=== PATIENT | male | born 1965 | race Two or more races ===

== ENCOUNTER 2017-07-03 12:14 | Inpatient (IN) | payer OTHER ==
[2017-07-03 13:25] VITALS: BMI 30.7
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
[2017-07-03] MEDS ORDERED: P-EPHED 60MG/TRIPROLIDI 2.5MG TABLET PO PRN (14:59)
[2017-07-03] MEDS ORDERED: MENTHOL/PHENOL 1 EACH UD MM PRN (14:59)
[2017-07-03] MEDS ORDERED: guaiFENesin/D-METHORPHAN HB 10 ML UNIT-DOSE CUPS PO PRN (14:59)
[2017-07-03] MEDS ORDERED: MAGNESIUM CITRATE 300 ML BOTTLE PO PRN (14:59)
[2017-07-03] MEDS ORDERED: ACETAMINOPHEN 325 MG TABLET (FP) PO PRN (14:59)
[2017-07-03] MEDS ORDERED: IBUPROFEN 400 MG TABLET (FP) PO PRN (14:59)
[2017-07-03] MEDS ORDERED: NICOTINE POLACRILEX 4 MG GUM BC PRN (14:59)
[2017-07-03] MEDS ORDERED: LOPERAMIDE HCL 2 MG CAPSULE PO PRN (14:59)
[2017-07-03] MEDS ORDERED: MAGNESIUM HYDROX 2400MG/30ML ORAL SUSPENSION 30 ML CUP PO PRN (14:59)
[2017-07-03] MEDS ORDERED: LIDOCAINE VISCOUS 2% ORAL/TOP 20 ML UNIT-DOSE CUP MM PRN (15:09)
[2017-07-03] MEDS ORDERED: diazePAM 5 MG TABLET PO ONE (15:15)
[2017-07-03] MEDS: LISINOPRIL 10 MG TABLET (FP) PO SCH (17:14)
[2017-07-03] MEDS: CEPHALEXIN MONOHYDRATE 500 MG CAPSULE (UD) PO SCH ×2 (17:14→22:25)
[2017-07-03] MEDS: NICOTINE 21 MG/24 HOURS TOPICAL PATCH TD SCH ×2 (17:16→17:54)
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
[2017-07-03] MEDS ORDERED: MELATONIN 5 MG TABLETS PO PRN (22:00)
[2017-07-03] MEDS: diazePAM 5 MG TABLET PO SCH (22:24)
[2017-07-03] MEDS: THIAMINE HCL 100 MG TABLET (FP) PO SCH (22:25)
[2017-07-03] MEDS: QUEtiapine FUMARATE 100 MG TABLET (FP) PO SCH (22:25)
[2017-07-03] MEDS: BACITRACIN 0.9 GM PACKET TP SCH (22:26)
[2017-07-04] MEDS: METHADONE HCL 40 MG DISPERSABLE TABLET PO SCH (06:01)
[2017-07-04] MEDS: diazePAM 5 MG TABLET PO SCH ×3 (06:01→22:21)
[2017-07-04] MEDS: PRENATAL VITAMINS W/ FOLIC ACID TABLET (FP) PO SCH (09:17)
[2017-07-04] MEDS: CEPHALEXIN MONOHYDRATE 500 MG CAPSULE (UD) PO SCH ×4 (09:17→22:21)
[2017-07-04] MEDS: LISINOPRIL 10 MG TABLET (FP) PO SCH (09:17)
[2017-07-04] MEDS: BACITRACIN 0.9 GM PACKET TP SCH ×2 (09:17→22:21)
[2017-07-04] MEDS: NICOTINE 21 MG/24 HOURS TOPICAL PATCH TD SCH (09:18)
[2017-07-04] MEDS: diazePAM 5 MG TABLET PO PRN (09:22)
--- NOTE | 2017-07-04 09:23 | EKG ---
Test Reason : Blood Pressure : / mmHG Vent. Rate : 064 BPM Atrial Rate : 064 BPM P-R Int : 140 ms QRS Dur : 088 ms QT Int : 392 ms P-R-T Axes : 034 001 030 degrees QTc Int : 404 ms NORMAL SINUS RHYTHM NONSPECIFIC T WAVE ABNORMALITY ABNORMAL ECG WHEN COMPARED WITH ECG OF 05-JAN-2017 19:59, NO SIGNIFICANT CHANGE WAS FOUND Confirmed by SURJIT BUSTOS MD ([id number]) on 07/04/2017 9:23:02 AM Referred By: Confirmed By:SURJIT BUSTOS MD
[2017-07-04] MEDS ORDERED: PANTOPRAZOLE 40 MG TABLET (FP) PO SCH (10:00)
[2017-07-04 10:13] LABS: HEMATOCRIT 35.2 % (35.4-49); HEMOGLOBIN 11.7 GM/dL (11.7-16.9); MCH 28.7 pg (25.7-33.7); MCHC 33.2 g/dl (32.0-35.9); MEAN CELL VOLUME 86.3 fl (80-96); MEAN PLT VOLUME 9.9 fl (7.5-11.1); PLATELET COUNT 242 K/MM3 (134-434); RBC 4.08 M/mm3 (4.00-5.60); RDW 15.3 % (11.9-15.9); WHITE BLOOD COUNT 4.5 K/mm3 (4.0-10.0)
[2017-07-04 10:37] LABS: CHLORIDE 107 mmol/L (98-107); POTASSIUM 4.3 mmol/L (3.5-5.1); SODIUM 141 mmol/L (136-145)
[2017-07-04 11:04] LABS: ALBUMIN 3.1 g/dl (3.4-5.0); ALK PHOS 116 U/L (45-117); ANION GAP 9 (8-16); BILIRUBIN,TOTAL 0.5 mg/dL (0.2-1.0); BLOOD UREA NITROGEN 18 mg/dL (7-18); CALCIUM 8.5 mg/dL (8.5-10.1); CO2 25 mmol/L (21-32); GLUCOSE,RANDOM 93 mg/dL (74-106); SGOT/AST 37 U/L (15-37); SGPT/ALT 54 U/L (12-78)
[2017-07-04] MEDS: MAG HYDROX/AL HYDROX/SIMETH 30 ML UNIT-DOSE CUP PO PRN (15:31)
--- NOTE | 2017-07-04 17:39 | PN ---
S CIWA - CIWA Score Nausea/Vomitin Muscle Tremors: 3 Anxiety: 4-Mod. Anxious/Guarded Agitation: 4-Moderately Restless Paroxysmal Sweats: No Perspiration Orientation: 0-Oriented Tacttile Disturbances: 1-Very Mild Itch/Numbness Auditory Disturbances: 0-None Visual Disturbances: 0-None Headache: 3-Moderate CIWA-Ar Total Score: 18 BHS Progress Note (SOAP) Subjective: Stomach Cramping, H/A, Tremors, Anxious. Objective: PATIENT A & O X 3, OBSERVED AMBULATING ON UNIT WITH ASSISTANCE OF A CANE. NO ACUTE DISTRESS. 07/04/17 17:37 Vital Signs Temperature 97.8 F 07/04/17 17:28 Pulse Rate 59 L 07/04/17 17:28 Respiratory Rate 20 07/04/17 17:28 Blood Pressure 132/86 07/04/17 17:28 O2 Sat by Pulse Oximetry (%) Laboratory Tests 07/04/17 07/04/17 07/04/17 08:00 08:00 08:00 WBC 4.5 RBC 4.08 Hgb 11.7 Hct 35.2 L MCV 86.3 MCH 28.7 MCHC 33.2 RDW 15.3 Plt Count 242 D MPV 9.9 Sodium 141 Potassium 4.3 Chloride 107 Carbon Dioxide 25 Anion Gap 9 BUN 18 Creatinine 1.0 Creat Clearance w eGFR > 60 Random Glucose 93 Calcium 8.5 Total Bilirubin 0.5 AST 37 D ALT 54 D Alkaline Phosphatase 116 D Total Protein 7.0 Albumin 3.1 L RPR Titer Nonreactive LABS NOTED. UA RESULTS PENDING. 07/04/17 17:38 Assessment: 07/04/17 17:38 WITHDRAWAL SYMPTOMS. Plan: CONTINUE DETOX. INCREASE DAILY PO FLUID INTAKE.
[2017-07-04] MEDS: THIAMINE HCL 100 MG TABLET (FP) PO SCH (22:21)
[2017-07-04] MEDS: QUEtiapine FUMARATE 100 MG TABLET (FP) PO SCH (22:21)
[2017-07-05] MEDS: METHADONE HCL 40 MG DISPERSABLE TABLET PO SCH (06:06)
[2017-07-05] MEDS: diazePAM 5 MG TABLET PO PRN ×2 (06:06→17:40)
[2017-07-05] MEDS: PANTOPRAZOLE 40 MG TABLET (FP) PO SCH (06:06)
[2017-07-05 10:15] LABS: URINE APPEARANCE CLEAR; URINE BILIRUBIN NEGATIVE (<2.0 mg/dL); URINE COLOR LTYELLOW; URINE GLUCOSE (UA) NEGATIVE (NEGATIVE); URINE KETONE NEGATIVE (NEGATIVE); URINE LEUK ESTERASE NEGATIVE (NEGATIVE); URINE NITRITE NEGATIVE (NEGATIVE); URINE PROTEIN NEGATIVE (NEGATIVE); URINE UROBILINOGEN NEGATIVE mg/dL (0.2-1.0)
[2017-07-05] MEDS: PRENATAL VITAMINS W/ FOLIC ACID TABLET (FP) PO SCH (10:34)
[2017-07-05] MEDS: BACITRACIN 0.9 GM PACKET TP SCH ×2 (10:34→22:25)
[2017-07-05] MEDS: LISINOPRIL 10 MG TABLET (FP) PO SCH (10:34)
[2017-07-05] MEDS: CEPHALEXIN MONOHYDRATE 500 MG CAPSULE (UD) PO SCH ×4 (10:34→22:25)
[2017-07-05] MEDS: diazePAM 5 MG TABLET PO SCH ×2 (10:35→22:25)
[2017-07-05] MEDS: NICOTINE 21 MG/24 HOURS TOPICAL PATCH TD SCH (10:35)
--- NOTE | 2017-07-05 14:45 | PN ---
[facility] CIWA - CIWA Score Nausea/Vomitin-No Nausea/No Vomiting Muscle Tremors: 4-Moderate,w/Arms Extend Anxiety: 4-Mod. Anxious/Guarded Agitation: 4-Moderately Restless Paroxysmal Sweats: 1-Minimal Palms Moist Orientation: 0-Oriented Tacttile Disturbances: 3-Moderate Itch/Numb/Burn Auditory Disturbances: 0-None Visual Disturbances: 0-None Headache: 0-None Present CIWA-Ar Total Score: 16 BHS Progress Note (SOAP) Subjective: ANXIETY,SWEATS,NAUSEA,VOMITING. REQUESTS PSYCH RE-EVAL FOLLOW UP. Objective: 07/05/17 14:44 Vital Signs 07/05/17 07/05/17 10:44 14:05 Temperature 95.4 F L 96.6 F L Pulse Rate 86 74 Respiratory 20 20 Rate Blood Pressure 123/84 127/90 Laboratory Tests 07/04/17 07/04/17 07/04/17 08:00 08:00 08:00 WBC 4.5 RBC 4.08 Hgb 11.7 Hct 35.2 L MCV 86.3 MCH 28.7 MCHC 33.2 RDW 15.3 Plt Count 242 D MPV 9.9 Sodium 141 Potassium 4.3 Chloride 107 Carbon Dioxide 25 Anion Gap 9 BUN 18 Creatinine 1.0 Creat Clearance w eGFR > 60 Random Glucose 93 Calcium 8.5 Total Bilirubin 0.5 AST 37 D ALT 54 D Alkaline Phosphatase 116 D Total Protein 7.0 Albumin 3.1 L Urine Color Urine Appearance Urine pH Ur Specific [place] Urine Protein Urine Glucose (UA) Urine Ketones Urine Blood Urine Nitrite Urine Bilirubin Urine Urobilinogen Ur Leukocyte Esterase RPR Titer Nonreactive 07/05/17 09:14 WBC RBC Hgb Hct MCV MCH MCHC RDW Plt Count MPV Sodium Potassium Chloride Carbon Dioxide Anion Gap BUN Creatinine Creat Clearance w eGFR Random Glucose Calcium Total Bilirubin AST ALT Alkaline Phosphatase Total Protein Albumin Urine Color Ltyellow Urine Appearance Clear Urine pH 5.0 D Ur Specific [place] 1.015 Urine Protein Negative Urine Glucose (UA) Negative Urine Ketones Negative Urine Blood Negative Urine Nitrite Negative Urine Bilirubin Negative Urine Urobilinogen Negative Ur Leukocyte Esterase Negative RPR Titer Assessment: 07/05/17 14:44 WITHDRAWAL SX Plan: CONTINUE DETOX FOLLOW UP WITH PSYCH TODAY
[2017-07-05] MEDS: QUEtiapine FUMARATE 100 MG TABLET (FP) PO SCH (22:25)
[2017-07-05] MEDS: THIAMINE HCL 100 MG TABLET (FP) PO SCH (22:25)
[2017-07-06] MEDS: PANTOPRAZOLE 40 MG TABLET (FP) PO SCH (05:46)
[2017-07-06] MEDS: METHADONE HCL 40 MG DISPERSABLE TABLET PO SCH (05:46)
[2017-07-06] MEDS: diazePAM 5 MG TABLET PO PRN (05:46)
[2017-07-06] MEDS: MAG HYDROX/AL HYDROX/SIMETH 30 ML UNIT-DOSE CUP PO PRN ×2 (08:35→17:33)
--- NOTE | 2017-07-06 09:19 | PN ---
Psychiatric Progress Note Vital Signs: Vital Signs Period Temp Pulse Resp BP Sys/Woods Pulse Ox Last 24 Hr 95.4 F-98.3 F 62-86 18-20 117-131/84-95 Date of Session: 07/06/17 Chief Complaint:: " I would like to get back on zoloft.I feel depressed." HPI: Uneventful detoxification course (opioid,cocaine,alcohol dependence) .Psychiatric re-consult is sought to address the patient's complaint of dysphoria,anxiety and decreased motivation.No suicidal ideation.Mr Castro recalls that zoloft was effective in the past.Expresses the wish to resume treatment with sertraline. ROS: Unremarkable.Patient is cognitively intact.Walks with a cane. Current Medications: Active Medications Generic Name Dose Route Start Last Admin Trade Name Freq PRN Reason Stop Dose Admin Acetaminophen 650 mg 07/03/17 14:59 Tylenol - PO Q4H PRN FEVER Al Hydroxide/Mg Hydroxide 30 ml 07/03/17 14:59 07/06/17 08:35 Mylanta Oral Suspension - PO 30 ml Q6H PRN Administration DYSPEPSIA Bacitracin 0.9 gm 07/03/17 22:00 07/05/17 22:25 Bacitracin - TP 0.9 gm BID LISA Administration Cephalexin HCl 500 mg 07/03/17 18:00 07/05/17 22:25 Keflex - PO 07/10/17 17:59 500 mg QID LISA Administration Diazepam 10 mg 07/03/17 14:59 07/06/17 05:46 Valium - PO 07/06/17 14:58 10 mg Q4H PRN Administration WITHDRAWAL(CONT SUBST) Diazepam 5 mg 07/05/17 10:00 07/05/17 22:25 Valium - PO 07/06/17 22:01 5 mg BID LISA Administration Diazepam 5 mg 07/07/17 10:00 Valium - PO 07/07/17 10:01 DAILY LISA Eucalyptus/Menthol/Phenol/Sorbitol 1 each 07/03/17 14:59 Cepastat Lozenge - MM Q4H PRN SORE THROAT Guaifenesin 10 ml 07/03/17 14:59 07/04/17 00:06 Robitussin Dm - PO 10 ml Q6H PRN Administration COUGH Ibuprofen 400 mg 07/03/17 14:59 Motrin - PO Q6H PRN PAIN LEVEL 4-6 Lidocaine HCl 20 ml 07/03/17 15:09 Xylocaine 2% Viscous Oral - MM TID PRN ORAL PAIN/MOUTH SORES Lisinopril 10 mg 07/03/17 15:45 07/05/17 10:34 Prinivil PO 10 mg DAILY LISA Administration Loperamide HCl 4 mg 07/03/17 14:59 Imodium - PO Q6H PRN DIARRHEA Magnesium Citrate 300 ml 07/03/17 14:59 Citroma - PO Q48H PRN CONSTIPATION Magnesium Hydroxide 30 ml 07/03/17 14:59 Milk Of Magnesia - PO DAILY PRN CONSTIPATION Melatonin 5 mg 07/03/17 22:00 Melatonin PO HS PRN INSOMNIA Methadone HCl 80 mg 07/04/17 06:00 07/06/17 05:46 Dolophine - PO 07/10/17 05:59 80 mg DAILY@0600 LISA Administration Nicotine 21 mg 07/03/17 16:00 07/05/17 10:35 Nicoderm Patch - TD 21 mg DAILY [facility] Administration Nicotine Polacrilex 4 mg 07/03/17 14:59 Nicorette Gum - BC Q2H PRN NICOTINE REPLACEMENT RX Pantoprazole Sodium 40 mg 07/05/17 06:00 07/06/17 05:46 Protonix - PO 40 mg DAILY@0600 [facility] Administration Multivit/Folic Acid/Iron 1 tab 07/04/17 10:00 07/05/17 10:34 Vitamins (Sjr) - PO 1 tab DAILY [facility] Administration Pseudoephedrine/Triprolidine 1 combo 07/03/17 14:59 Actifed - PO TID PRN NASAL CONGESTION Quetiapine Fumarate 100 mg 07/03/17 22:00 07/05/17 22:25 Seroquel - PO 100 mg HS LISA Administration Sertraline HCl 50 mg 07/06/17 10:00 Zoloft - PO DAILY [facility] Thiamine HCl 100 mg 07/03/17 22:00 07/05/17 22:25 Vitamin B1 - PO 100 mg HS LISA Administration Zolpidem Tartrate 10 mg 07/06/17 22:00 Ambien - PO HS PRN INSOMNIA Medication(s) Change(s): Yes.Added to the regimen : zoloft 50 mg po daily + Ambien 10 mg po hs.Side effects/benefits of both drugs are discussed with the patient.Mr Castro is made aware of the risk of sexual dysfunction,suicidal ideation (zoloft) and parasomnias (sleep-walking).Patient agrees with this plan of care. Current Side Effect: No Lab tests ordered: No Lab tests reviewed: Yes Provider note:: Met with the patient.Mr Castro confirms feelings of anhedonia, recurrent moments of sadness during daytime,low energy and dysphoric mood.He remembers that these symptoms were alleviated by the regular utilization of sertraline." I felt much better when I was taking that medication.Unfortunately I stopped taking it after a few weeks." Additional complaint consists of insomnia.Patient agrees to a trial of zolpidem.Mental status remains stable.Patient is willing to complete detox treatment and he contemplates transition to an outpatient substance program.Benign hospital course. Total face to face time:: 35 Mental Status Exam - Mental Status Exam Alert and Oriented to: Time, Place, Person Cognitive Function: Good Patient Appearance: Well Groomed Mood: Withdrawn, Anxious, Hopeful Affect: Mood Congruent, Constricted Patient Behavior: Appropriate, Cooperative Speech Pattern: Clear, Appropriate Voice Loudness: Normal Thought Process: Intact, Goal Oriented Thought Disorder: Not Present Hallucinations: Denies Suicidal Ideation: Denies Homicidal Ideation: Denies Insight/Judgement: Fair Sleep: Poorly, Difficulty falling asleep Appetite: Good Muscle strength/Tone: Normal Gait/Station: Other (walks with a cane) Psychiatric Treatment Plan - Problem List (1) Opioid dependence on agonist therapy Current Visit: Yes (2) Alcohol dependence with uncomplicated withdrawal Current Visit: Yes (3) Cocaine dependence Current Visit: Yes Qualifiers: Substance use status: uncomplicated Qualified Code(s): F14.20 - Cocaine dependence, uncomplicated (4) Sedative, hypnotic or anxiolytic dependence with withdrawal, uncomplicated Current Visit: Yes (5) Nicotine dependence Current Visit: Yes Qualifiers: Nicotine product type: cigarettes Substance use status: in withdrawal Qualified Code(s): F17.213 - Nicotine dependence, cigarettes, with withdrawal (6) Schizoaffective disorder Current Visit: Yes Qualifiers: Schizoaffective disorder type: bipolar Qualified Code(s): F25.0 - Schizoaffective disorder, bipolar type (7) Substance induced mood disorder Current Visit: Yes (8) Insomnia Current Visit: Yes Qualifiers: Insomnia type: unspecified Qualified Code(s): G47.00 - Insomnia, unspecified
[2017-07-06] MEDS: NICOTINE 21 MG/24 HOURS TOPICAL PATCH TD SCH (10:37)
[2017-07-06] MEDS: LISINOPRIL 10 MG TABLET (FP) PO SCH (10:37)
[2017-07-06] MEDS: PRENATAL VITAMINS W/ FOLIC ACID TABLET (FP) PO SCH (10:37)
[2017-07-06] MEDS: diazePAM 5 MG TABLET PO SCH ×2 (10:37→22:15)
[2017-07-06] MEDS: CEPHALEXIN MONOHYDRATE 500 MG CAPSULE (UD) PO SCH ×4 (10:37→22:15)
[2017-07-06] MEDS: SERTRALINE HCL 50 MG TABLET (FP) PO SCH ×2 (11:12→11:54)
[2017-07-06] MEDS: BACITRACIN 0.9 GM PACKET TP SCH ×2 (11:46→22:15)
[2017-07-06] MEDS ORDERED: TRIMETHOBENZAMIDE HCL 200MG/2ML INJ IM ONE (12:55)
--- NOTE | 2017-07-06 13:16 | PN ---
BHS Progress Note (SOAP) Subjective: Sweats shakes sleep disturbance Loss of appetite Requesting to speak with psych Objective: 07/06/17 13:13 A & O x 3 Vital Signs Temperature 96.9 F L 07/06/17 09:42 Pulse Rate 88 07/06/17 09:42 Respiratory Rate 18 07/06/17 09:42 Blood Pressure 127/91 07/06/17 09:42 O2 Sat by Pulse Oximetry (%) Assessment: 07/06/17 13:14 Withdrawal sx Anxiety Plan: Continue detox For psych consult
[2017-07-06] MEDS ORDERED: TRIMETHOBENZAMIDE HCL 300 MG CAPSULE PO ONE (13:45)
--- NOTE | 2017-07-06 15:25 | PN ---
BHS Progress Note Note: Tigan 200mg IM earlier ordered for pt's vomiting
--- NOTE | 2017-07-06 17:33 | PN ---
S Progress Note Note: C/o abd pain w/ burning and vomiting up all food. States protonix is not helping with gastric reflux. States only omperazole 40 mg daily or OTC zantach 300 mg has worked. States has had an endoscopy in the past. Denies blood in vomit or black or tarry stools. Vital Signs - 24 hr 07/05/17 07/05/17 07/06/17 18:29 21:49 00:30 Temperature 97.3 F L 98.3 F Pulse Rate 62 74 Respiratory 18 18 18 Rate Blood Pressure 124/90 131/95 07/06/17 07/06/17 07/06/17 03:30 06:20 06:30 Temperature 98.1 F Pulse Rate 85 Respiratory 18 20 20 Rate Blood Pressure 117/84 07/06/17 07/06/17 09:42 14:33 Temperature 96.9 F L 96.9 F L Pulse Rate 88 65 Respiratory 18 18 Rate Blood Pressure 127/91 115/77 Distended obese abdomen soft and non-tender to palpation. BS (+) and non- hyperactive. Lungs CTA. Nurse will give mylanta PO now. Will stop protonix and prescribe zantac 150 mg PO daily. Patient encouraged to f/u w/ PCP and GI upon discharge.
[2017-07-06] MEDS ORDERED: ZOLPIDEM TARTRATE 10 MG TABLET (PARK CARE ONLY) PO PRN (22:00)
[2017-07-06] MEDS: QUEtiapine FUMARATE 100 MG TABLET (FP) PO SCH (22:15)
[2017-07-06] MEDS: THIAMINE HCL 100 MG TABLET (FP) PO SCH (22:15)
[2017-07-07] MEDS: METHADONE HCL 40 MG DISPERSABLE TABLET PO SCH (05:14)
[2017-07-07 09:29] VITALS: BP 122/88; PULSE 82; TEMP 96.6
[2017-07-07] MEDS ORDERED: diazePAM 5 MG TABLET PO SCH (10:00)
[2017-07-07] MEDS ORDERED: RANITIDINE HCL 150 MG TABLET (FP) PO SCH (10:00)
--- NOTE | 2017-07-07 11:56 | PN ---
BHS Progress Note (SOAP) Subjective: Patient denies current Detox symptoms and reports that he feels well overall. Objective: PATIENT A & O X 3, OBSERVED AMBULATING ON UNIT WITH ASSISTANCE OF A CANE. NO ACUTE DISTRESS. 07/07/17 12:01 Vital Signs Temperature 96.6 F L 07/07/17 09:27 Pulse Rate 82 07/07/17 09:27 Respiratory Rate 18 07/07/17 09:27 Blood Pressure 122/88 07/07/17 09:27 O2 Sat by Pulse Oximetry (%) Laboratory Tests 07/04/17 07/04/17 07/04/17 08:00 08:00 08:00 WBC 4.5 RBC 4.08 Hgb 11.7 Hct 35.2 L MCV 86.3 MCH 28.7 MCHC 33.2 RDW 15.3 Plt Count 242 D MPV 9.9 Sodium 141 Potassium 4.3 Chloride 107 Carbon Dioxide 25 Anion Gap 9 BUN 18 Creatinine 1.0 Creat Clearance w eGFR > 60 Random Glucose 93 Calcium 8.5 Total Bilirubin 0.5 AST 37 D ALT 54 D Alkaline Phosphatase 116 D Total Protein 7.0 Albumin 3.1 L Urine Color Urine Appearance Urine pH Ur Specific [place] Urine Protein Urine Glucose (UA) Urine Ketones Urine Blood Urine Nitrite Urine Bilirubin Urine Urobilinogen Ur Leukocyte Esterase RPR Titer Nonreactive 07/05/17 09:14 WBC RBC Hgb Hct MCV MCH MCHC RDW Plt Count MPV Sodium Potassium Chloride Carbon Dioxide Anion Gap BUN Creatinine Creat Clearance w eGFR Random Glucose Calcium Total Bilirubin AST ALT Alkaline Phosphatase Total Protein Albumin Urine Color Ltyellow Urine Appearance Clear Urine pH 5.0 D Ur Specific [place] 1.015 Urine Protein Negative Urine Glucose (UA) Negative Urine Ketones Negative Urine Blood Negative Urine Nitrite Negative Urine Bilirubin Negative Urine Urobilinogen Negative Ur Leukocyte Esterase Negative RPR Titer LABS NOTED. Assessment: 07/07/17 12:01 COMPLETION OF DETOX REGIMEN. Plan: PATIENT SCHEDULED FOR DISCHARGE FROM DETOX UNIT TODAY.
--- NOTE | 2017-07-07 12:09 | DS ---
[facility] Detox Discharge Summary Admission Date: 07/03/17 Discharge Date: 07/07/17 - History Present History: Alcohol Dependence, Cocaine Dependence, Opioid Dependence, Sedative Dependence, MMTP Additional Comments: PATIENT TO RETURN TO [facility]PAT[facility] ([place] FOR AFTERCARE. PRESCRIPTION FOR REMAINDER OF FULL COURSE OF ANTIBIOTIC (KEFLEX) STARTED ABSCESS OF ARM DURING ADMISSION TO DETOX SENT TO PATIENT'S PHARMACY ( [facility], [place] PATIENT WAS DISCHARGED FROM DETOX UNIT IN STABLE MEDICAL CONDITION. Pertinent Past History: Depression, Abscess of Left arm, MMTP, HTN, Schizoaffective Disorder, GERD, Depression, Bipolar Disorder, History of Positive PPD, Nicotine Dependence. - Physical Exam Results Vital Signs: Vital Signs Temperature 96.6 F L 07/07/17 09:27 Pulse Rate 82 07/07/17 09:27 Respiratory Rate 18 07/07/17 09:27 Blood Pressure 122/88 07/07/17 09:27 O2 Sat by Pulse Oximetry (%) Pertinent Admission Physical Exam Findings: WITHDRAWAL SYMPTOMS. Laboratory Tests 07/04/17 07/04/17 07/04/17 08:00 08:00 08:00 WBC 4.5 RBC 4.08 Hgb 11.7 Hct 35.2 L MCV 86.3 MCH 28.7 MCHC 33.2 RDW 15.3 Plt Count 242 D MPV 9.9 Sodium 141 Potassium 4.3 Chloride 107 Carbon Dioxide 25 Anion Gap 9 BUN 18 Creatinine 1.0 Creat Clearance w eGFR > 60 Random Glucose 93 Calcium 8.5 Total Bilirubin 0.5 AST 37 D ALT 54 D Alkaline Phosphatase 116 D Total Protein 7.0 Albumin 3.1 L Urine Color Urine Appearance Urine pH Ur Specific [place] Urine Protein Urine Glucose (UA) Urine Ketones Urine Blood Urine Nitrite Urine Bilirubin Urine Urobilinogen Ur Leukocyte Esterase RPR Titer Nonreactive 07/05/17 09:14 WBC RBC Hgb Hct MCV MCH MCHC RDW Plt Count MPV Sodium Potassium Chloride Carbon Dioxide Anion Gap BUN Creatinine Creat Clearance w eGFR Random Glucose Calcium Total Bilirubin AST ALT Alkaline Phosphatase Total Protein Albumin Urine Color Ltyellow Urine Appearance Clear Urine pH 5.0 D Ur Specific [place] 1.015 Urine Protein Negative Urine Glucose (UA) Negative Urine Ketones Negative Urine Blood Negative Urine Nitrite Negative Urine Bilirubin Negative Urine Urobilinogen Negative Ur Leukocyte Esterase Negative RPR Titer LABS NOTED. - Treatment Hospital Course: Detox Protocol Followed, Detoxed Safely, Responded well, Discharged Condition Good Patient has Accepted a Rehab Referral to: PT RETURNING TO [facility] ([place]) FOR AFTERCARE. - Medication Discharge Medications: Ambulatory Orders Omeprazole 40 mg PO DAILY 01/05/17 Quetiapine Fumarate [Seroquel] 100 mg PO HS #30 tablet 01/06/17 Cephalexin [Keflex] 500 mg PO TID 5 Days #15 capsule 07/07/17 Lisinopril 10 mg PO DAILY #30 tablet 07/07/17 - Diagnosis (1) Sedative, hypnotic or anxiolytic dependence with withdrawal, uncomplicated Status: Acute (2) Alcohol dependence with uncomplicated withdrawal Status: Acute (3) Cocaine dependence Status: Acute Qualifiers: Substance use status: uncomplicated Qualified Code(s): F14.20 - Cocaine dependence, uncomplicated (4) Nicotine dependence Status: Acute Qualifiers: Nicotine product type: cigarettes Substance use status: in withdrawal Qualified Code(s): F17.213 - Nicotine dependence, cigarettes, with withdrawal (5) Opioid dependence on agonist therapy Status: Acute (6) GERD (gastroesophageal reflux disease) Status: Acute Qualifiers: Esophagitis presence: esophagitis presence not specified Qualified Code(s) : K21.9 - Gastro-esophageal reflux disease without esophagitis (7) Hepatitis C Status: Chronic Qualifiers: Viral hepatitis chronicity: chronic Hepatic coma status: without hepatic coma Qualified Code(s): B18.2 - Chronic viral hepatitis C (8) Hypertension Status: Chronic Qualifiers: Hypertension type: essential hypertension Qualified Code(s): I10 - Essential (primary) hypertension (9) Methadone maintenance therapy patient Status: Chronic (10) Positive PPD Status: Resolved (11) History of schizophrenia Status: Suspected (12) History of bipolar disorder Status: Suspected (13) Abscess of left forearm Status: Acute (14) Insomnia Status: Acute Qualifiers: Insomnia type: unspecified Qualified Code(s): G47.00 - Insomnia, unspecified (15) Substance induced mood disorder Status: Acute (16) Schizoaffective disorder Status: Chronic Qualifiers: Schizoaffective disorder type: bipolar Qualified Code(s): F25.0 - Schizoaffective disorder, bipolar type - AMA Did Patient Leave Against Medical Advice: No
== END 2017-07-07 10:12 | disposition home or self-care (01) | DRG 773 ==
LOC: YASAS 12:14 → Y3N 14:53
PROVIDERS: ADMIT Internal Medicine; ATTEND Internal Medicine
PROC: HZ2ZZZZ Detoxification Services for Substance Abuse Treatment (ICD-10-PCS; principal; 2017-07-03)
DX: F10.230 Alcohol dependence with withdrawal, uncomplicated (principal); F11.20 Opioid dependence, uncomplicated; F13.230 Sedative, hypnotic or anxiolytic dependence with withdrawal, uncomplicated; F14.20 Cocaine dependence, uncomplicated; F17.210 Nicotine dependence, cigarettes, uncomplicated; F19.24 Other psychoactive substance dependence with psychoactive substance-induced mood disorder; F25.0 Schizoaffective disorder, bipolar type; I10 Essential (primary) hypertension; K21.9 Gastro-esophageal reflux disease without esophagitis; B18.2 Chronic viral hepatitis C; R76.11 Nonspecific reaction to tuberculin skin test without active tuberculosis; L02.414 Cutaneous abscess of left upper limb; G47.00 Insomnia, unspecified; R26.2 Difficulty in walking, not elsewhere classified; Z99.89 Dependence on other enabling machines and devices; Z91.5 Personal history of self-harm
CPT/HCPCS: 36415; 80053; 81003; 85027; 86593; 93005; 93010

== ENCOUNTER 2018-03-19 12:00 | Inpatient (IN) | payer OTHER ==
[2018-03-19 12:36] VITALS: BMI 30.1
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
[2018-03-19] MEDS ORDERED: MAG HYDROX/AL HYDROX/SIMETH 30 ML UNIT-DOSE CUP PO PRN (17:02)
[2018-03-19] MEDS ORDERED: IBUPROFEN 400 MG TABLET (FP) PO PRN (17:02)
[2018-03-19] MEDS ORDERED: P-EPHED 60MG/TRIPROLIDI 2.5MG TABLET PO PRN (17:02)
[2018-03-19] MEDS ORDERED: ACETAMINOPHEN 325 MG TABLET (FP) PO PRN (17:02)
[2018-03-19] MEDS ORDERED: guaiFENesin/D-METHORPHAN HB 10 ML UNIT-DOSE CUPS PO PRN (17:02)
[2018-03-19] MEDS ORDERED: MAGNESIUM CITRATE 300 ML BOTTLE PO PRN (17:02)
[2018-03-19] MEDS ORDERED: NICOTINE POLACRILEX 4 MG GUM BC PRN (17:02)
[2018-03-19] MEDS ORDERED: MAGNESIUM HYDROX 2400MG/30ML ORAL SUSPENSION 30 ML CUP PO PRN (17:02)
[2018-03-19] MEDS ORDERED: MENTHOL/PHENOL 1 EACH UD MM PRN (17:02)
[2018-03-19] MEDS ORDERED: chlordiazePOXIDE HCL 25 MG CAPSULE PO ONE (18:00)
[2018-03-19] MEDS: NICOTINE 21 MG/24 HOURS TOPICAL PATCH TD SCH (18:12)
[2018-03-19] MEDS: chlordiazePOXIDE HCL 25 MG CAPSULE PO SCH (23:28)
[2018-03-19] MEDS: THIAMINE HCL 100 MG TABLET (FP) PO SCH (23:28)
[2018-03-20] MEDS: METHADONE HCL 40 MG DISPERSABLE TABLET PO SCH (05:33)
[2018-03-20] MEDS: chlordiazePOXIDE HCL 25 MG CAPSULE PO SCH ×4 (05:34→23:16)
[2018-03-20] MEDS: NICOTINE 21 MG/24 HOURS TOPICAL PATCH TD SCH (10:37)
[2018-03-20] MEDS: PRENATAL VITAMINS W/ FOLIC ACID TABLET (FP) PO SCH (10:37)
[2018-03-20 11:07] LABS: HEMOGLOBIN 11.1 GM/dL (11.7-16.9); MCH 27.3 pg (25.7-33.7); MCHC 32.6 g/dl (32.0-35.9); MEAN CELL VOLUME 83.7 fl (80-96); MEAN PLT VOLUME 9.6 fl (7.5-11.1); PLATELET COUNT 268 K/MM3 (134-434); RBC 4.07 M/mm3 (4.00-5.60); RDW 15.7 % (11.9-15.9); WHITE BLOOD COUNT 4.9 K/mm3 (4.0-10.0)
[2018-03-20 11:09] LABS: URINE APPEARANCE CLEAR; URINE BILIRUBIN NEGATIVE (<2.0 mg/dL); URINE COLOR YELLOW; URINE GLUCOSE (UA) NEGATIVE (NEGATIVE); URINE KETONE NEGATIVE (NEGATIVE); URINE LEUK ESTERASE NEGATIVE (NEGATIVE); URINE NITRITE NEGATIVE (NEGATIVE); URINE PROTEIN NEGATIVE (NEGATIVE); URINE UROBILINOGEN 4.0 E.U/dl mg/dL (0.2-1.0)
[2018-03-20 11:20] LABS: ALBUMIN 3.6 g/dl (3.4-5.0); ALK PHOS 106 U/L (45-117); ANION GAP 7 MMOL/L (8-16); BILIRUBIN,TOTAL 0.4 mg/dL (0.2-1); BLOOD UREA NITROGEN 13 mg/dL (7-18); CALCIUM 8.5 mg/dL (8.5-10.1); CHLORIDE 108 mmol/L (98-107); CO2 26 mmol/L (21-32); CREATININE 1.1 mg/dL (0.55-1.3); GLUCOSE,RANDOM 104 mg/dL (74-106); POTASSIUM 3.6 mmol/L (3.5-5.1); SGOT/AST 28 U/L (15-37); SGPT/ALT 34 U/L (13-61); SODIUM 141 mmol/L (136-145); TOT PROT 7.5 g/dl (6.4-8.2)
--- NOTE | 2018-03-20 13:08 | PN ---
S CIWA - CIWA Score Nausea/Vomitin Muscle Tremors: 2 Anxiety: 2 Agitation: 2 Paroxysmal Sweats: 2 Orientation: 0-Oriented Tacttile Disturbances: 1-Very Mild Itch/Numbness Auditory Disturbances: 1-Very Mild Visual Disturbances: 1-Very Mild Sensitivity Headache: 1-Very Mild CIWA-Ar Total Score: 15 BHS Progress Note (SOAP) Subjective: Epigastric discomfort, anxiety, interrupted sleep Objective: 03/20/18 13:07 Vital Signs 03/20/18 03/20/18 03/20/18 06:00 06:22 09:45 Temperature 97.2 F L 97 F L Pulse Rate 53 L 56 L Respiratory 18 18 19 Rate Blood Pressure 144/91 126/92 Laboratory Last Values WBC 4.9 K/mm3 (4.0-10.0) 03/20/18 05:40 RBC 4.07 M/mm3 (4.00-5.60) 03/20/18 05:40 Hgb 11.1 GM/dL (11.7-16.9) L 03/20/18 05:40 Hct 34.0 % (35.4-49) L 03/20/18 05:40 MCV 83.7 fl (80-96) 03/20/18 05:40 MCH 27.3 pg (25.7-33.7) 03/20/18 05:40 MCHC 32.6 g/dl (32.0-35.9) 03/20/18 05:40 RDW 15.7 % (11.9-15.9) 03/20/18 05:40 Plt Count 268 K/MM3 (134-434) 03/20/18 05:40 MPV 9.6 fl (7.5-11.1) 03/20/18 05:40 Sodium 141 mmol/L (136-145) 03/20/18 05:40 Potassium 3.6 mmol/L (3.5-5.1) 03/20/18 05:40 Chloride 108 mmol/L (98-107) H 03/20/18 05:40 Carbon Dioxide 26 mmol/L (21-32) 03/20/18 05:40 Anion Gap 7 MMOL/L (8-16) L 03/20/18 05:40 BUN 13 mg/dL (7-18) 03/20/18 05:40 Creatinine 1.1 mg/dL (0.55-1.3) 03/20/18 05:40 Creat Clearance w eGFR > 60 (>60) 03/20/18 05:40 Random Glucose 104 mg/dL (74-106) 03/20/18 05:40 Calcium 8.5 mg/dL (8.5-10.1) 03/20/18 05:40 Total Bilirubin 0.4 mg/dL (0.2-1) 03/20/18 05:40 AST 28 U/L (15-37) 03/20/18 05:40 ALT 34 U/L (13-61) 03/20/18 05:40 Alkaline Phosphatase 106 U/L (45-117) 03/20/18 05:40 Total Protein 7.5 g/dl (6.4-8.2) 03/20/18 05:40 Albumin 3.6 g/dl (3.4-5.0) 03/20/18 05:40 Urine Color Yellow 03/20/18 07:50 Urine Appearance Clear 03/20/18 07:50 Urine pH 6.0 (5.0-8.0) 03/20/18 07:50 Ur Specific [place] 1.018 (1.010-1.035) 03/20/18 07:50 Urine Protein Negative (NEGATIVE) 03/20/18 07:50 Urine Glucose (UA) Negative (NEGATIVE) 03/20/18 07:50 Urine Ketones Negative (NEGATIVE) 03/20/18 07:50 Urine Blood Negative (NEGATIVE) 03/20/18 07:50 Urine Nitrite Negative (NEGATIVE) 03/20/18 07:50 Urine Bilirubin Negative (<2.0 mg/dL) 03/20/18 07:50 Urine Urobilinogen 4.0 e.u/dl mg/dL (0.2-1.0) 03/20/18 07:50 Ur Leukocyte Esterase Negative (NEGATIVE) 03/20/18 07:50 RPR Titer Nonreactive (NONREACTIVE) 03/20/18 05:40 Labs noted, no panic values Assessment: 03/20/18 13:07 Withdrawal sx GERD Plan: Continue detox Start pantoprazole 40mg QD
[2018-03-20] MEDS: PANTOPRAZOLE 40 MG TABLET (FP) PO SCH (14:26)
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
[2018-03-20] MEDS: chlordiazePOXIDE HCL 25 MG CAPSULE PO PRN (19:35)
[2018-03-20] MEDS: QUEtiapine FUMARATE 50 MG TABLET PO SCH (23:15)
[2018-03-20] MEDS: THIAMINE HCL 100 MG TABLET (FP) PO SCH (23:15)
[2018-03-21] MEDS: METHADONE HCL 40 MG DISPERSABLE TABLET PO SCH (05:54)
[2018-03-21] MEDS: chlordiazePOXIDE HCL 25 MG CAPSULE PO SCH ×3 (05:54→16:50)
[2018-03-21] MEDS: PRENATAL VITAMINS W/ FOLIC ACID TABLET (FP) PO SCH (10:20)
[2018-03-21] MEDS: LOPERAMIDE HCL 2 MG CAPSULE PO PRN ×2 (10:20→16:50)
[2018-03-21] MEDS: PANTOPRAZOLE 40 MG TABLET (FP) PO SCH (10:20)
[2018-03-21] MEDS: NICOTINE 21 MG/24 HOURS TOPICAL PATCH TD SCH (10:24)
--- NOTE | 2018-03-21 11:00 | EKG ---
Test Reason : Blood Pressure : / mmHG Vent. Rate : 056 BPM Atrial Rate : 056 BPM P-R Int : 138 ms QRS Dur : 086 ms QT Int : 378 ms P-R-T Axes : 030 -07 019 degrees QTc Int : 364 ms SINUS BRADYCARDIA NONSPECIFIC T WAVE ABNORMALITY ABNORMAL ECG WHEN COMPARED WITH ECG OF 03-JUL-2017 17:06, PRECORDIAL LEAD QRS VOLTAGE has diminished Confirmed by KIRSTEN IVY MD ([id number]) on 03/21/2018 10:59:53 AM Referred By: Confirmed By:KIRSTEN IVY MD
[2018-03-21] MEDS ORDERED: cloNIDine HCL 0.1 MG TABLET PO PRN (16:32)
--- NOTE | 2018-03-21 16:34 | PN ---
[facility] CIWA - CIWA Score Nausea/Vomitin-Mild Nausea/No Vomiting Muscle Tremors: 3 Anxiety: 3 Agitation: 3 Paroxysmal Sweats: 3 Orientation: 0-Oriented Tacttile Disturbances: 0-None Auditory Disturbances: 0-None Visual Disturbances: 0-None Headache: 0-None Present CIWA-Ar Total Score: 13 [facility] Progress Note (SOAP) Subjective: Nausea, headache, diarrhea, tremor, sweating Objective: 03/21/18 16:29 Last Vital Signs Temp Pulse Resp BP Pulse Ox 97.3 F L 70 16 149/100 03/21/18 14:29 03/21/18 14:29 03/21/18 14:29 03/21/18 14:29 HTN noted: 149/100 (h/o htn, not on med) Laboratory Tests 03/20/18 03/20/18 03/20/18 05:40 05:40 05:40 WBC 4.9 RBC 4.07 Hgb 11.1 L Hct 34.0 L MCV 83.7 MCH 27.3 MCHC 32.6 RDW 15.7 Plt Count 268 MPV 9.6 Sodium 141 Potassium 3.6 Chloride 108 H Carbon Dioxide 26 Anion Gap 7 L BUN 13 Creatinine 1.1 Creat Clearance w eGFR > 60 Random Glucose 104 Calcium 8.5 Total Bilirubin 0.4 AST 28 ALT 34 Alkaline Phosphatase 106 Total Protein 7.5 Albumin 3.6 Urine Color Urine Appearance Urine pH Ur Specific [place] Urine Protein Urine Glucose (UA) Urine Ketones Urine Blood Urine Nitrite Urine Bilirubin Urine Urobilinogen Ur Leukocyte Esterase RPR Titer Nonreactive 03/20/18 07:50 WBC RBC Hgb Hct MCV MCH MCHC RDW Plt Count MPV Sodium Potassium Chloride Carbon Dioxide Anion Gap BUN Creatinine Creat Clearance w eGFR Random Glucose Calcium Total Bilirubin AST ALT Alkaline Phosphatase Total Protein Albumin Urine Color Yellow Urine Appearance Clear Urine pH 6.0 Ur Specific [place] 1.018 Urine Protein Negative Urine Glucose (UA) Negative Urine Ketones Negative Urine Blood Negative Urine Nitrite Negative Urine Bilirubin Negative Urine Urobilinogen 4.0 e.u/dl Ur Leukocyte Esterase Negative RPR Titer Labs reviewed: mild anemia noted Assessment: 03/21/18 16:31 Withdrawal symptoms Mild anemia and uncontrolled HTN noted Plan: Continue detox Encouraged PO water intake Anemia, mild: most likely due to alcohol dependence HTN, uncontrolled: start clonidine 0.1mg PO q8hr prn if b/p > 140/90. Resume lisinopril 10mg PO daily (patient takes at home). Can increase lisinopril if warranted.
[2018-03-21] MEDS: chlordiazePOXIDE HCL 25 MG CAPSULE PO PRN (21:06)
[2018-03-21] MEDS: chlordiazePOXIDE 5 MG CAPSULE PO SCH (22:33)
[2018-03-21] MEDS: QUEtiapine FUMARATE 50 MG TABLET PO SCH (22:33)
[2018-03-21] MEDS: THIAMINE HCL 100 MG TABLET (FP) PO SCH (22:33)
[2018-03-22] MEDS: LOPERAMIDE HCL 2 MG CAPSULE PO PRN ×2 (00:30→06:18)
[2018-03-22] MEDS: METHADONE HCL 40 MG DISPERSABLE TABLET PO SCH (06:15)
[2018-03-22] MEDS: chlordiazePOXIDE 5 MG CAPSULE PO SCH ×3 (06:15→18:10)
[2018-03-22] MEDS: LISINOPRIL 10 MG TABLET (FP) PO SCH (10:26)
[2018-03-22] MEDS: PRENATAL VITAMINS W/ FOLIC ACID TABLET (FP) PO SCH (10:26)
[2018-03-22] MEDS: PANTOPRAZOLE 40 MG TABLET (FP) PO SCH (10:26)
[2018-03-22] MEDS: NICOTINE 21 MG/24 HOURS TOPICAL PATCH TD SCH (10:26)
--- NOTE | 2018-03-22 12:11 | PN ---
[facility] Progress Note (SOAP) Subjective: Interrupted Sleep, Tremors, Nausea, Stomach Cramping, Diarrhea (patient reports that PRN Immodium has been ineffective for diarrhea). Objective: PATIENT A & O X 3, OBSERVED AMBULATING ON UNIT. IN NO ACUTE DISTRESS. 03/22/18 12:07 Vital Signs Temperature 98.8 F 03/22/18 09:27 Pulse Rate 70 03/22/18 09:27 Respiratory Rate 18 03/22/18 09:27 Blood Pressure 133/94 03/22/18 09:27 O2 Sat by Pulse Oximetry (%) Laboratory Tests 03/20/18 03/20/18 03/20/18 05:40 05:40 05:40 WBC 4.9 RBC 4.07 Hgb 11.1 L Hct 34.0 L MCV 83.7 MCH 27.3 MCHC 32.6 RDW 15.7 Plt Count 268 MPV 9.6 Sodium 141 Potassium 3.6 Chloride 108 H Carbon Dioxide 26 Anion Gap 7 L BUN 13 Creatinine 1.1 Creat Clearance w eGFR > 60 Random Glucose 104 Calcium 8.5 Total Bilirubin 0.4 AST 28 ALT 34 Alkaline Phosphatase 106 Total Protein 7.5 Albumin 3.6 Urine Color Urine Appearance Urine pH Ur Specific [place] Urine Protein Urine Glucose (UA) Urine Ketones Urine Blood Urine Nitrite Urine Bilirubin Urine Urobilinogen Ur Leukocyte Esterase RPR Titer Nonreactive 03/20/18 07:50 WBC RBC Hgb Hct MCV MCH MCHC RDW Plt Count MPV Sodium Potassium Chloride Carbon Dioxide Anion Gap BUN Creatinine Creat Clearance w eGFR Random Glucose Calcium Total Bilirubin AST ALT Alkaline Phosphatase Total Protein Albumin Urine Color Yellow Urine Appearance Clear Urine pH 6.0 Ur Specific [place] 1.018 Urine Protein Negative Urine Glucose (UA) Negative Urine Ketones Negative Urine Blood Negative Urine Nitrite Negative Urine Bilirubin Negative Urine Urobilinogen 4.0 e.u/dl Ur Leukocyte Esterase Negative RPR Titer LABS NOTED. Assessment: 03/22/18 12:08 WITHDRAWAL SYMPTOMS. DIARRHEA. HYPERTENSION. 03/22/18 12:08 Plan: CONTINUE DETOX. INCREASE DAILY PO FLUID INTAKE. PATIENT CURRENTLY RECEIVING DAILY MVI CONTAINING B VITAMINS AND IRON WHILE ADMITTED FOR DETOX. CHANGE FROM IMMODIUM TO LOMOTIL FOR TREATMENT OF DIARRHEA. PATIENT CURRENTLY RECEIVING LISINOPRIL, 10 MG PO DAILY FOR HYPERTENSION. WILL CONTINUE TO MONITOR BLOOD PRESSURE TO DETERMING IF DOSAGE ADJUSTMENT IS REQUIRED.
[2018-03-22] MEDS ORDERED: DIPHENOXYLATE 2.5/ATROPINE.025 1 COMBO TABLET PO ONE (12:20)
[2018-03-22] MEDS: chlordiazePOXIDE HCL 25 MG CAPSULE PO PRN (13:18)
[2018-03-22] MEDS ORDERED: DIPHENOXYLATE 2.5/ATROPINE.025 1 COMBO TABLET PO PRN (19:00)
[2018-03-22] MEDS: QUEtiapine FUMARATE 50 MG TABLET PO SCH (21:16)
[2018-03-22] MEDS: THIAMINE HCL 100 MG TABLET (FP) PO SCH (21:16)
[2018-03-22] MEDS: MELATONIN 5 MG TABLETS PO PRN (21:17)
[2018-03-22] MEDS: chlordiazePOXIDE HCL 10 MG CAPSULE PO SCH (22:16)
[2018-03-23] MEDS: chlordiazePOXIDE HCL 10 MG CAPSULE PO SCH ×3 (06:03→18:01)
[2018-03-23] MEDS: METHADONE HCL 40 MG DISPERSABLE TABLET PO SCH (07:03)
--- NOTE | 2018-03-23 09:08 | PN ---
[facility] Progress Note (SOAP) Subjective: Anxious, Nausea, Abdominal Cramping, Diarrhea. Objective: PATIENT A & O X 3, OBSERVED AMBULATING ON UNIT. 03/23/18 09:04 Vital Signs Temperature 98.1 F 03/23/18 06:17 Pulse Rate 74 03/23/18 06:17 Respiratory Rate 18 03/23/18 06:17 Blood Pressure 118/89 03/23/18 06:17 O2 Sat by Pulse Oximetry (%) Laboratory Tests 03/20/18 03/20/18 03/20/18 05:40 05:40 05:40 WBC 4.9 RBC 4.07 Hgb 11.1 L Hct 34.0 L MCV 83.7 MCH 27.3 MCHC 32.6 RDW 15.7 Plt Count 268 MPV 9.6 Sodium 141 Potassium 3.6 Chloride 108 H Carbon Dioxide 26 Anion Gap 7 L BUN 13 Creatinine 1.1 Creat Clearance w eGFR > 60 Random Glucose 104 Calcium 8.5 Total Bilirubin 0.4 AST 28 ALT 34 Alkaline Phosphatase 106 Total Protein 7.5 Albumin 3.6 Urine Color Urine Appearance Urine pH Ur Specific [place] Urine Protein Urine Glucose (UA) Urine Ketones Urine Blood Urine Nitrite Urine Bilirubin Urine Urobilinogen Ur Leukocyte Esterase RPR Titer Nonreactive 03/20/18 07:50 WBC RBC Hgb Hct MCV MCH MCHC RDW Plt Count MPV Sodium Potassium Chloride Carbon Dioxide Anion Gap BUN Creatinine Creat Clearance w eGFR Random Glucose Calcium Total Bilirubin AST ALT Alkaline Phosphatase Total Protein Albumin Urine Color Yellow Urine Appearance Clear Urine pH 6.0 Ur Specific [place] 1.018 Urine Protein Negative Urine Glucose (UA) Negative Urine Ketones Negative Urine Blood Negative Urine Nitrite Negative Urine Bilirubin Negative Urine Urobilinogen 4.0 e.u/dl Ur Leukocyte Esterase Negative RPR Titer LABS NOTED. Assessment: 03/23/18 09:05 WITHDRAWAL SYMPTOMS. DIARRHEA. ABDOMINAL PAIN. Plan: CONTINUE DETOX. PATIENT ORIGINALLY SCHEDULED FOR DISCHARGE FROM DETOX UNIT TODAY. HOWEVER, DUE TO PERSISTENT DIARRHEA AND ABDOMINAL PAIN THAT IS NOT RESPONDING TO MEDICATION ( IMMODIUM, THEN LOMOTIL), PATIENT TO BE SENT TO [facility] ER. SEE FOLLOWING [facility] PROGRESS NOTE.
--- NOTE | 2018-03-23 09:14 | PN ---
[facility] Progress Note Note: PATIENT WAS ORIGINALLY SCHEDULED FOR DISCHARGE FROM DETOX UNIT TODAY. HOWEVER, DUE TO PERSISTENT DIARRHEA THAT HAS NOT BEEN RESPONSIVE TO BOTH IMMODIUM, THEN LOMOTIL, PATIENT TO BE SENT TO [facility] FOR FURTHER EVALUATION. PATIENT ALSO REPORTS ABDOMINAL PAIN PRIMARILY AFFECTING UPPER RIGHT SIDE ( SLIGHTLY BELOW EPIGASTRIC AREA), FREQUENT, SPASMODIC QUALITY, 10/10 ON PAIN SCALE. PATIENT ALSO REPORTS NAUSEA (NO VOMITING). PATIENT DENIES HISTORY OF ANY SIMILAR OCCURRENCE IN THE PAST. VS STABLE, PATIENT AFEBRILE. REPROT GIVEN TO DR. KOREY SPARKS MD AT [facility]. PATIENT TO BE TAKEN TO [facility] FOR FURTHER EVALUATION/TREATMENT. Judy VERGARA NP
[2018-03-23] MEDS: NICOTINE 21 MG/24 HOURS TOPICAL PATCH TD SCH (10:00)
[2018-03-23] MEDS: PANTOPRAZOLE 40 MG TABLET (FP) PO SCH (10:00)
[2018-03-23] MEDS: LISINOPRIL 10 MG TABLET (FP) PO SCH (10:00)
[2018-03-23] MEDS: PRENATAL VITAMINS W/ FOLIC ACID TABLET (FP) PO SCH (10:00)
[2018-03-23] MEDS ORDERED: LOPERAMIDE HCL 2 MG CAPSULE PO PRN (19:05)
--- NOTE | 2018-03-23 19:15 | PN ---
[facility] Progress Note Note: Patient returned from [facility] ED, after evaluation of c/o diarrhea (w/o blood) and abdominal pain. Abdominal screening and GB ultrasound wnl. Returned w/ no abd pain at this time. Abd soft. Vital Signs 03/23/18 18:08 Temperature 97.9 F Pulse Rate 84 Respiratory 19 Rate Blood Pressure 129/82 Plan: Continue Protonix. D/c Diphenoxylate w/atropine and start Imodium Encourage 2 pitchers water daily. Continue detox. Monitor, as needed.
[2018-03-23] MEDS: QUEtiapine FUMARATE 50 MG TABLET PO SCH (22:21)
[2018-03-23] MEDS: MELATONIN 5 MG TABLETS PO PRN (22:22)
[2018-03-23] MEDS: THIAMINE HCL 100 MG TABLET (FP) PO SCH (22:22)
[2018-03-24] MEDS: METHADONE HCL 40 MG DISPERSABLE TABLET PO SCH (08:18)
--- NOTE | 2018-03-24 08:54 | DS ---
[facility] Detox Discharge Summary Admission Date: 03/19/18 Discharge Date: 03/24/18 - History Present History: Alcohol Dependence, Cocaine Dependence - Physical Exam Results Vital Signs: Vital Signs Temperature 97.5 F L 03/24/18 08:11 Pulse Rate 65 03/24/18 08:11 Respiratory Rate 20 03/24/18 08:11 Blood Pressure 111/71 03/24/18 08:11 O2 Sat by Pulse Oximetry (%) - Treatment Hospital Course: Detox Protocol Followed, Detoxed Safely, Responded well, Discharged Condition Good, Rehab Referral Accepted - Medication Discharge Medications: Ambulatory Orders Omeprazole 40 mg PO DAILY 01/05/17 Quetiapine Fumarate [Seroquel] 100 mg PO HS #30 tablet 01/06/17 Sertraline HCl [Zoloft -] 50 mg PO DAILY #30 tablet 07/08/17 Methadone [Dolophine -] 80 mg PO DAILY 03/19/18 Chlordiazepoxide [Librium -] 10 mg PO ASDIR 03/23/18 Diphenoxylate 2.5/Atropine.025 [Lomotil -] 1 combo PO PRN PRN 03/23/18 Lisinopril 10 mg PO DAILY #30 tablet 03/23/18 Loperamide HCl [Loperamide] 4 mg PO PRN PRN 03/23/18 Melatonin 5 mg PO HS 03/23/18 Nicotine Patch [Nicoderm Patch -] 1 patch TD DAILY 03/23/18 Pantoprazole Sodium [Protonix] 40 mg PO DAILY 03/23/18 Pnv No.95/Ferrous Fum/Folic AC [ Caplet] 1 each PO DAILY 03/23/18 - Diagnosis (1) Alcohol dependence with uncomplicated withdrawal Current Visit: Yes Status: Chronic (2) Anemia Current Visit: Yes Status: Acute (3) Cocaine dependence Current Visit: Yes Status: Chronic Qualifiers: Substance use status: uncomplicated Qualified Code(s): F14.20 - Cocaine dependence, uncomplicated (4) GERD (gastroesophageal reflux disease) Current Visit: Yes Status: Chronic Qualifiers: Esophagitis presence: without esophagitis Qualified Code(s): K21.9 - Gastro -esophageal reflux disease without esophagitis (5) Hepatitis C Current Visit: Yes Status: Chronic Qualifiers: Viral hepatitis chronicity: chronic Hepatic coma status: without hepatic coma Qualified Code(s): B18.2 - Chronic viral hepatitis C (6) Hypertension Current Visit: Yes Status: Chronic Qualifiers: Hypertension type: essential hypertension Qualified Code(s): I10 - Essential (primary) hypertension (7) Nicotine dependence Current Visit: Yes Status: Chronic Qualifiers: Nicotine product type: cigarettes Substance use status: uncomplicated Qualified Code(s): F17.210 - Nicotine dependence, cigarettes, uncomplicated (8) Opioid dependence on agonist therapy Current Visit: Yes Status: Chronic (9) Substance induced mood disorder Current Visit: Yes Status: Chronic (10) Diarrhea Current Visit: Yes Status: Acute Qualifiers: Diarrhea type: unspecified type Qualified Code(s): R19.7 - Diarrhea, unspecified (11) Sedative, hypnotic or anxiolytic dependence with withdrawal, uncomplicated Current Visit: Yes Status: Acute (12) Methadone maintenance therapy patient Current Visit: Yes Status: Chronic (13) Schizoaffective disorder Current Visit: No Status: Chronic Qualifiers: Schizoaffective disorder type: bipolar Qualified Code(s): F25.0 - Schizoaffective disorder, bipolar type (14) Bipolar II disorder Current Visit: No Status: Suspected (15) History of schizophrenia Current Visit: No Status: Suspected (16) Positive PPD Current Visit: No Status: Resolved - AMA Did Patient Leave Against Medical Advice: No (referred to [facility])
[2018-03-24 09:19] VITALS: BP 124/90; PULSE 71; TEMP 98.4
[2018-03-24] MEDS ORDERED: metroNIDAZOLE 250 MG TABLET PO ONE (09:41)
[2018-03-24] MEDS: PANTOPRAZOLE 40 MG TABLET (FP) PO SCH (10:05)
[2018-03-24] MEDS: LISINOPRIL 10 MG TABLET (FP) PO SCH (10:05)
[2018-03-24] MEDS: PRENATAL VITAMINS W/ FOLIC ACID TABLET (FP) PO SCH (10:05)
[2018-03-24] MEDS: NICOTINE 21 MG/24 HOURS TOPICAL PATCH TD SCH (10:06)
[2018-03-24] MEDS ORDERED: metroNIDAZOLE 250 MG TABLET PO SCH (14:00)
== END 2018-03-24 11:05 | disposition home or self-care (01) | DRG 773 ==
LOC: YASAS 12:00 → Y6N 17:19
PROVIDERS: ADMIT Neuromusculoskeletal Medicine & OMM; ATTEND Neuromusculoskeletal Medicine & OMM
PROC: HZ2ZZZZ Detoxification Services for Substance Abuse Treatment (ICD-10-PCS; principal; 2018-03-22)
DX: F10.230 Alcohol dependence with withdrawal, uncomplicated (principal); F10.282 Alcohol dependence with alcohol-induced sleep disorder; F11.20 Opioid dependence, uncomplicated; F14.20 Cocaine dependence, uncomplicated; F13.230 Sedative, hypnotic or anxiolytic dependence with withdrawal, uncomplicated; F17.213 Nicotine dependence, cigarettes, with withdrawal; F19.24 Other psychoactive substance dependence with psychoactive substance-induced mood disorder; F25.0 Schizoaffective disorder, bipolar type; F31.81 Bipolar II disorder; I10 Essential (primary) hypertension; K21.9 Gastro-esophageal reflux disease without esophagitis; B18.2 Chronic viral hepatitis C; R19.7 Diarrhea, unspecified; R76.11 Nonspecific reaction to tuberculin skin test without active tuberculosis; R10.9 Unspecified abdominal pain; Z68.30 Body mass index [BMI] 30.0-30.9, adult; Z91.14 Patient's other noncompliance with medication regimen; Z91.5 Personal history of self-harm
CPT/HCPCS: 36415; 80053; 81003; 85027; 86593; 93005; 93010

== ENCOUNTER 2018-03-23 10:58 | Emergency (ER) | payer OTHER ==
[2018-03-23 11:05] VITALS: TEMP 97.6; BMI 30.9
[2018-03-23] MEDS ORDERED: FAMOTIDINE 20 MG/50 ML IVPB 20 MG/50 ML MG IVPB ONE ×2 (11:51→11:55)
[2018-03-23] MEDS ORDERED: MAG HYDROX/AL HYDROX/SIMETH 30 ML UNIT-DOSE CUP PO ONE (11:51)
[2018-03-23] MEDS ORDERED: MAG HYDROX/AL HYDROX/SIMETH 30 ML UNIT-DOSE CUP ONE (11:54)
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
[2018-03-23 12:13] LABS: BASO % 1.1 % (0-2.0); EOS % 2.2 % (0-4.5); HEMATOCRIT 39.1 % (35.4-49); HEMOGLOBIN 12.9 GM/dL (11.7-16.9); LYMPH % 19.2 % (8-40); MCH 27.4 pg (25.7-33.7); MONO % 12.9 % (3.8-10.2); NEUT % 64.6 % (42.8-82.8); PLATELET COUNT 299 K/MM3 (134-434); RBC 4.71 M/mm3 (4.00-5.60); RDW 16.1 % (11.9-15.9); WHITE BLOOD COUNT 5.6 K/mm3 (4.0-10.0)
[2018-03-23 12:47] LABS: ALBUMIN 3.4 g/dl (3.4-5.0); ALK PHOS 110 U/L (45-117); ANION GAP 6 MMOL/L (8-16); BILIRUBIN,TOTAL 0.5 mg/dL (0.2-1); BLOOD UREA NITROGEN 27 mg/dL (7-18); CHLORIDE 108 mmol/L (98-107); CO2 25 mmol/L (21-32); CREATININE 1.5 mg/dL (0.55-1.3); GLUCOSE,RANDOM 99 mg/dL (74-106); LIPASE 89 U/L (73-393); POTASSIUM 4.1 mmol/L (3.5-5.1); SGOT/AST 36 U/L (15-37); SGPT/ALT 45 U/L (13-61); SODIUM 139 mmol/L (136-145); TOT PROT 7.8 g/dl (6.4-8.2)
--- NOTE | 2018-03-23 13:31 | PDOC ---
Attending Attestation - Resident Resident Name: Alex Gonzalez - ED Attending Attestation I have performed the following: I have examined & evaluated the patient, The case was reviewed & discussed with the resident, I agree w/resident's findings & plan - HPI HPI: 03/23/18 13:26 52 YOM with h/o HTN, hepatitis C, gastritis, alcohol and heroin/IVDU abuse presenting from [facility] with epigastric AP, diarrhea x 3 days. No fever. No n/v. Last used alcohol about 5 days ago. 03/23/18 13:30 - Physicial Exam PE: 03/23/18 13:27 NAD, well appearing, PERRL, EOMI, MMM, nl conjunctiva, anicteric; neck supple. lungs clear, RRR, abdomen soft no RUQ tenderness, +epigastric TTP. no rebound or guarding. no CVAT. AMARO x4, no focal neuro deficits. No peripheral edema. normal color for ethnicity, WWP. no rash. - Medical Decision Making 03/23/18 13:28 hpi as documented VS wnl DDx abdominal pain: opioid/alchol withdrawal. Renal colic, biliary colic, metabolic/electrolyte derangements. GERD, PUD, esophageal spasm, pancreatitis, hepatitis, constipation, colitis, gastroenteritis, cholecystitis,medication side effect, hernia, no lower abdominal pain to suggest appy/diverticulitis. given pepcid, GI cocktail with clinical improvement. abdomen soft and benign, non peritoneal to suggest intra abdominal pathology. biliary ultrasound at bedside with no stones, tenderness; no e/o cholecystitis or cholelithiasis, CBD grossly normal with visualization of the portal triad. labs and lytes normal. lipase normal. doubt pancreatitis or hepatitis diarrhea could be withdrawal from opioid use no alcohol w/d sx here. Pt informed of my clinical impression, treatment recommendations and disposition plan. All questions answered to patient's satisfaction and expressed understanding and comfort with this. Reasons for returning to the ED sooner discussed with the patient otherwise, follow up with primary care physician and continued detox at [facility].. At the time of discharge, the patient is alert, clinically improved, tolerating po and verbalizes understanding of instructions. Patient does not suffer from an acute life- threatening medical condition at this time she is safe for outpatient follow- up. back to [facility] inpatient. call made to with updates. Procedures - Bedside Ultrasound Bedside Ultrasound: Gallbladder Remarks: 03/23/18 13:27 POCUS biliary exam: Indication: abdominal pain Views: gallbladder long and s hort axis, CBD Findings: no stones or GB wall thickening or pericholecystic fluid, normal CBD < 3mm for age. Neg sono murphys Impression: no acute findings. No cholelithiasis or cholecystitis.
[2018-03-23 15:29] VITALS: BP 111/81; PULSE 73
== END 2018-03-23 17:32 | disposition home or self-care (01) ==
LOC: JER 10:58
PROC: 3E033GC Introduction of Other Therapeutic Substance into Peripheral Vein, Percutaneous Approach (ICD-10-PCS; principal; 2018-03-23)
PROC: BF43ZZZ Ultrasonography of Gallbladder and Bile Ducts (ICD-10-PCS; 2018-03-23)
DX: F11.20 Opioid dependence, uncomplicated (principal); F10.20 Alcohol dependence, uncomplicated; I10 Essential (primary) hypertension; K21.9 Gastro-esophageal reflux disease without esophagitis; B18.2 Chronic viral hepatitis C
CPT/HCPCS: 36415; 76705; 80053; 83690; 85025; 96365; 99282-25

== ENCOUNTER 2018-04-20 11:50 | Inpatient (IN) | payer OTHER ==
[2018-04-20 13:18] VITALS: BMI 30.5
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
[2018-04-20] MEDS ORDERED: ACETAMINOPHEN 325 MG TABLET (FP) PO PRN (14:10)
[2018-04-20] MEDS ORDERED: hydrOXYzine PAMOATE 50 MG CAPSULE (FP) PO PRN (14:10)
[2018-04-20] MEDS ORDERED: MAGNESIUM CITRATE 300 ML BOTTLE PO PRN (14:10)
[2018-04-20] MEDS ORDERED: LOPERAMIDE HCL 2 MG CAPSULE PO PRN (14:10)
[2018-04-20] MEDS ORDERED: NICOTINE POLACRILEX 2 MG GUM BUC PRN (14:10)
[2018-04-20] MEDS ORDERED: IBUPROFEN 400 MG TABLET (FP) PO PRN (14:10)
[2018-04-20] MEDS ORDERED: P-EPHED 60MG/TRIPROLIDI 2.5MG TABLET PO PRN (14:10)
[2018-04-20] MEDS ORDERED: MAGNESIUM HYDROX 2400MG/30ML ORAL SUSPENSION 30 ML CUP PO PRN (14:10)
[2018-04-20] MEDS ORDERED: MENTHOL/PHENOL 1 EACH UD MM PRN (14:10)
[2018-04-20] MEDS: RANITIDINE HCL 150 MG TABLET (FP) PO SCH ×2 (16:11→22:31)
[2018-04-20] MEDS: chlordiazePOXIDE HCL 25 MG CAPSULE PO PRN (16:11)
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
[2018-04-20] MEDS ORDERED: MELATONIN 5 MG TABLETS PO PRN (22:00)
[2018-04-20] MEDS: chlordiazePOXIDE HCL 25 MG CAPSULE PO SCH (22:30)
[2018-04-20] MEDS: THIAMINE HCL 100 MG TABLET (FP) PO SCH (22:30)
[2018-04-21] MEDS: chlordiazePOXIDE HCL 25 MG CAPSULE PO SCH ×4 (05:45→22:08)
[2018-04-21 09:59] LABS: HEMATOCRIT 35.2 % (35.4-49); HEMOGLOBIN 11.7 GM/dL (11.7-16.9); MCH 28.3 pg (25.7-33.7); MCHC 33.2 g/dl (32.0-35.9); MEAN CELL VOLUME 85.2 fl (80-96); MEAN PLT VOLUME 10.1 fl (7.5-11.1); PLATELET COUNT 258 K/MM3 (134-434); RBC 4.13 M/mm3 (4.00-5.60); RDW 17.1 % (11.9-15.9); WHITE BLOOD COUNT 5.1 K/mm3 (4.0-10.0)
[2018-04-21] MEDS ORDERED: NICOTINE 14 MG/24 HOURS TOPICAL PATCH TD SCH (10:00)
[2018-04-21 10:16] LABS: ALBUMIN 3.5 g/dl (3.4-5.0); ALK PHOS 112 U/L (45-117); ANION GAP 8 MMOL/L (8-16); BILIRUBIN,TOTAL 0.4 mg/dL (0.2-1); BLOOD UREA NITROGEN 12 mg/dL (7-18); CALCIUM 8.8 mg/dL (8.5-10.1); CHLORIDE 106 mmol/L (98-107); CO2 24 mmol/L (21-32); GLUCOSE,RANDOM 85 mg/dL (74-106); POTASSIUM 4.3 mmol/L (3.5-5.1); SGOT/AST 26 U/L (15-37); SGPT/ALT 29 U/L (13-61); SODIUM 138 mmol/L (136-145); TOT PROT 7.7 g/dl (6.4-8.2)
[2018-04-21] MEDS: PRENATAL VITAMINS W/ FOLIC ACID TABLET (FP) PO SCH (10:17)
[2018-04-21] MEDS: RANITIDINE HCL 150 MG TABLET (FP) PO SCH ×2 (10:18→22:08)
[2018-04-21] MEDS: LISINOPRIL 10 MG TABLET (FP) PO SCH (10:19)
[2018-04-21] MEDS ORDERED: METHADONE HCL 10 MG TABLET PO ONE (10:21)
[2018-04-21] MEDS ORDERED: METHADONE HCL 40 MG DISPERSABLE TABLET ONE (10:55)
[2018-04-21] MEDS ORDERED: METHADONE HCL 10 MG TABLET ONE (10:55)
[2018-04-21] MEDS ORDERED: METHADONE 80 MG, METHADONE 20 MG PO ONE (11:00)
[2018-04-21] MEDS ORDERED: cloNIDine HCL 0.1 MG TABLET PO PRN (11:08)
--- NOTE | 2018-04-21 11:09 | PN ---
[facility] CIWA - CIWA Score Nausea/Vomitin-No Nausea/No Vomiting Muscle Tremors: 3 Anxiety: 1-Mildly Anxious Agitation: 2 Paroxysmal Sweats: 1-Minimal Palms Moist Orientation: 1-Uncertain about Date Tacttile Disturbances: 0-None Auditory Disturbances: 0-None Visual Disturbances: 0-None Headache: 1-Very Mild CIWA-Ar Total Score: 9 BHS Progress Note (SOAP) Subjective: tremor sweating anxiety overly worry about the detox emotion assurance given Objective: 04/21/18 11:26 Vital Signs Temperature 96 F L 04/21/18 09:19 Pulse Rate 54 L 04/21/18 09:19 Respiratory Rate 20 04/21/18 09:19 Blood Pressure 137/86 04/21/18 09:19 O2 Sat by Pulse Oximetry (%) Laboratory Last Values WBC 5.1 K/mm3 (4.0-10.0) 04/21/18 05:45 RBC 4.13 M/mm3 (4.00-5.60) 04/21/18 05:45 Hgb 11.7 GM/dL (11.7-16.9) 04/21/18 05:45 Hct 35.2 % (35.4-49) L 04/21/18 05:45 MCV 85.2 fl (80-96) 04/21/18 05:45 MCH 28.3 pg (25.7-33.7) 04/21/18 05:45 MCHC 33.2 g/dl (32.0-35.9) 04/21/18 05:45 RDW 17.1 % (11.9-15.9) H 04/21/18 05:45 Plt Count 258 K/MM3 (134-434) 04/21/18 05:45 MPV 10.1 fl (7.5-11.1) D 04/21/18 05:45 Sodium 138 mmol/L (136-145) 04/21/18 05:45 Potassium 4.3 mmol/L (3.5-5.1) 04/21/18 05:45 Chloride 106 mmol/L (98-107) 04/21/18 05:45 Carbon Dioxide 24 mmol/L (21-32) 04/21/18 05:45 Anion Gap 8 MMOL/L (8-16) 04/21/18 05:45 BUN 12 mg/dL (7-18) 04/21/18 05:45 Creatinine 1.0 mg/dL (0.55-1.3) 04/21/18 05:45 Creat Clearance w eGFR > 60 (>60) 04/21/18 05:45 Random Glucose 85 mg/dL (74-106) 04/21/18 05:45 Calcium 8.8 mg/dL (8.5-10.1) 04/21/18 05:45 Total Bilirubin 0.4 mg/dL (0.2-1) 04/21/18 05:45 AST 26 U/L (15-37) 04/21/18 05:45 ALT 29 U/L (13-61) 04/21/18 05:45 Alkaline Phosphatase 112 U/L (45-117) 04/21/18 05:45 Total Protein 7.7 g/dl (6.4-8.2) 04/21/18 05:45 Albumin 3.5 g/dl (3.4-5.0) 04/21/18 05:45 lab noted Assessment: 04/21/18 11:27 alcohol withdrawal sx methadone 100 mg po daily Plan: continue detox
[2018-04-21 15:16] LABS: URINE APPEARANCE CLEAR; URINE BILIRUBIN NEGATIVE (<2.0 mg/dL); URINE COLOR YELLOW; URINE GLUCOSE (UA) NEGATIVE (NEGATIVE); URINE KETONE NEGATIVE (NEGATIVE); URINE LEUK ESTERASE NEGATIVE (NEGATIVE); URINE NITRITE NEGATIVE (NEGATIVE); URINE PROTEIN NEGATIVE (NEGATIVE); URINE UROBILINOGEN NEGATIVE mg/dL (0.2-1.0)
[2018-04-21] MEDS: THIAMINE HCL 100 MG TABLET (FP) PO SCH (22:08)
[2018-04-21] MEDS: QUEtiapine FUMARATE 100 MG TABLET (FP) PO SCH (22:08)
[2018-04-21] MEDS: NICOTINE 21 MG/24 HOURS TOPICAL PATCH TD SCH (22:11)
[2018-04-22] MEDS ORDERED: METHADONE HCL 10 MG TABLET ONE (04:52)
[2018-04-22] MEDS ORDERED: METHADONE HCL 40 MG DISPERSABLE TABLET ONE (04:53)
[2018-04-22] MEDS: METHADONE 80 MG, METHADONE 20 MG PO SCH (05:31)
[2018-04-22] MEDS: chlordiazePOXIDE HCL 25 MG CAPSULE PO SCH ×3 (05:31→17:14)
[2018-04-22] MEDS ORDERED: METHADONE HCL 10 MG TABLET PO SCH (06:00)
[2018-04-22] MEDS: MAG HYDROX/AL HYDROX/SIMETH 30 ML UNIT-DOSE CUP PO PRN (07:40)
[2018-04-22] MEDS: RANITIDINE HCL 150 MG TABLET (FP) PO SCH ×2 (10:06→21:58)
[2018-04-22] MEDS: PRENATAL VITAMINS W/ FOLIC ACID TABLET (FP) PO SCH (10:06)
[2018-04-22] MEDS: SERTRALINE HCL 50 MG TABLET (FP) PO SCH (10:06)
[2018-04-22] MEDS: LISINOPRIL 10 MG TABLET (FP) PO SCH (10:06)
[2018-04-22] MEDS: NICOTINE 21 MG/24 HOURS TOPICAL PATCH TD SCH (10:08)
--- NOTE | 2018-04-22 10:57 | PN ---
[facility] CIWA - CIWA Score Nausea/Vomitin-No Nausea/No Vomiting Muscle Tremors: 2 Anxiety: 2 Agitation: 2 Paroxysmal Sweats: 1-Minimal Palms Moist Orientation: 1-Uncertain about Date Tacttile Disturbances: 0-None Auditory Disturbances: 0-None Visual Disturbances: 0-None Headache: 1-Very Mild CIWA-Ar Total Score: 9 S Progress Note (SOAP) Subjective: tremor sweating feeling better today able to social with peers in hallway and in day room Objective: 04/22/18 10:57 Vital Signs Temperature 97.2 F L 04/22/18 09:23 Pulse Rate 76 04/22/18 09:23 Respiratory Rate 18 04/22/18 09:23 Blood Pressure 106/87 04/22/18 09:23 O2 Sat by Pulse Oximetry (%) Laboratory Last Values WBC 5.1 K/mm3 (4.0-10.0) 04/21/18 05:45 RBC 4.13 M/mm3 (4.00-5.60) 04/21/18 05:45 Hgb 11.7 GM/dL (11.7-16.9) 04/21/18 05:45 Hct 35.2 % (35.4-49) L 04/21/18 05:45 MCV 85.2 fl (80-96) 04/21/18 05:45 MCH 28.3 pg (25.7-33.7) 04/21/18 05:45 MCHC 33.2 g/dl (32.0-35.9) 04/21/18 05:45 RDW 17.1 % (11.9-15.9) H 04/21/18 05:45 Plt Count 258 K/MM3 (134-434) 04/21/18 05:45 MPV 10.1 fl (7.5-11.1) D 04/21/18 05:45 Sodium 138 mmol/L (136-145) 04/21/18 05:45 Potassium 4.3 mmol/L (3.5-5.1) 04/21/18 05:45 Chloride 106 mmol/L (98-107) 04/21/18 05:45 Carbon Dioxide 24 mmol/L (21-32) 04/21/18 05:45 Anion Gap 8 MMOL/L (8-16) 04/21/18 05:45 BUN 12 mg/dL (7-18) 04/21/18 05:45 Creatinine 1.0 mg/dL (0.55-1.3) 04/21/18 05:45 Creat Clearance w eGFR > 60 (>60) 04/21/18 05:45 Random Glucose 85 mg/dL (74-106) 04/21/18 05:45 Calcium 8.8 mg/dL (8.5-10.1) 04/21/18 05:45 Total Bilirubin 0.4 mg/dL (0.2-1) 04/21/18 05:45 AST 26 U/L (15-37) 04/21/18 05:45 ALT 29 U/L (13-61) 04/21/18 05:45 Alkaline Phosphatase 112 U/L (45-117) 04/21/18 05:45 Total Protein 7.7 g/dl (6.4-8.2) 04/21/18 05:45 Albumin 3.5 g/dl (3.4-5.0) 04/21/18 05:45 Urine Color Yellow 04/20/18 11:00 Urine Appearance Clear 04/20/18 11:00 Urine pH 5.0 (5.0-8.0) 04/20/18 11:00 Ur Specific [place] 1.015 (1.010-1.035) 04/20/18 11:00 Urine Protein Negative (NEGATIVE) 04/20/18 11:00 Urine Glucose (UA) Negative (NEGATIVE) 04/20/18 11:00 Urine Ketones Negative (NEGATIVE) 04/20/18 11:00 Urine Blood Negative (NEGATIVE) 04/20/18 11:00 Urine Nitrite Negative (NEGATIVE) 04/20/18 11:00 Urine Bilirubin Negative (<2.0 mg/dL) 04/20/18 11:00 Urine Urobilinogen Negative mg/dL (0.2-1.0) 04/20/18 11:00 Ur Leukocyte Esterase Negative (NEGATIVE) 04/20/18 11:00 RPR Titer Nonreactive (NONREACTIVE) 04/21/18 05:45 lab noted Assessment: 04/22/18 10:57 alcohol withdrawal sx Plan: continue detox
[2018-04-22] MEDS: guaiFENesin/D-METHORPHAN HB 10 ML UNIT-DOSE CUPS PO PRN ×2 (10:58→18:19)
[2018-04-22] MEDS: chlordiazePOXIDE HCL 25 MG CAPSULE PO PRN (15:29)
[2018-04-22] MEDS: QUEtiapine FUMARATE 100 MG TABLET (FP) PO SCH (21:58)
[2018-04-22] MEDS: THIAMINE HCL 100 MG TABLET (FP) PO SCH (21:58)
[2018-04-22] MEDS: chlordiazePOXIDE 5 MG CAPSULE PO SCH (21:59)
[2018-04-23] MEDS ORDERED: METHADONE HCL 10 MG TABLET ONE (03:53)
[2018-04-23] MEDS ORDERED: METHADONE HCL 40 MG DISPERSABLE TABLET ONE (03:54)
[2018-04-23] MEDS: chlordiazePOXIDE 5 MG CAPSULE PO SCH ×2 (06:01→10:05)
[2018-04-23] MEDS: METHADONE 80 MG, METHADONE 20 MG PO SCH (06:01)
[2018-04-23 09:51] VITALS: BP 113/74; PULSE 60; TEMP 98
[2018-04-23] MEDS: NICOTINE 21 MG/24 HOURS TOPICAL PATCH TD SCH (10:04)
[2018-04-23] MEDS: MAG HYDROX/AL HYDROX/SIMETH 30 ML UNIT-DOSE CUP PO PRN (10:05)
[2018-04-23] MEDS: RANITIDINE HCL 150 MG TABLET (FP) PO SCH (10:05)
[2018-04-23] MEDS: SERTRALINE HCL 50 MG TABLET (FP) PO SCH (10:05)
[2018-04-23] MEDS: LISINOPRIL 10 MG TABLET (FP) PO SCH (10:06)
[2018-04-23] MEDS: PRENATAL VITAMINS W/ FOLIC ACID TABLET (FP) PO SCH (10:06)
--- NOTE | 2018-04-23 19:25 | DS ---
[facility] Detox Discharge Summary Admission Date: 04/20/18 Discharge Date: 04/23/18 - History Present History: Alcohol Dependence, Cocaine Dependence, Opioid Dependence, Sedative Dependence, MMTP Additional Comments: PATIENT GOING TO [facility] ([place], [place]) FOR AFTERCARE. PRESCRIPTION FOR LISINOPRIL SENT TO [facility] ([place], [place]) FOR AFTERCARE FOR PATIENT. PATIENT WAS DISCHARGED FROM DETOX UNIT NI STABLE MEDICAL CONDITION. Pertinent Past History: History of Positive PPD, Hep C, History of Depression, History of Bipolar Disorder, History Of Anemia, [place], M.M.T.P., Nicotine Dependence, Schiozaffective Disorder, Insomnia, M.M.T.P. - Physical Exam Results Vital Signs: Vital Signs Temperature 98.0 F 04/23/18 09:23 Pulse Rate 60 04/23/18 09:23 Respiratory Rate 18 04/23/18 09:23 Blood Pressure 113/74 04/23/18 09:23 O2 Sat by Pulse Oximetry (%) Pertinent Admission Physical Exam Findings: WITHDRAWAL SYMPTOMS. Laboratory Tests 04/20/18 04/21/18 04/21/18 11:00 05:45 05:45 WBC 5.1 RBC 4.13 Hgb 11.7 Hct 35.2 L MCV 85.2 MCH 28.3 MCHC 33.2 RDW 17.1 H Plt Count 258 MPV 10.1 D Sodium 138 Potassium 4.3 Chloride 106 Carbon Dioxide 24 Anion Gap 8 BUN 12 Creatinine 1.0 Creat Clearance w eGFR > 60 Random Glucose 85 Calcium 8.8 Total Bilirubin 0.4 AST 26 ALT 29 Alkaline Phosphatase 112 Total Protein 7.7 Albumin 3.5 Urine Color Yellow Urine Appearance Clear Urine pH 5.0 Ur Specific [place] 1.015 Urine Protein Negative Urine Glucose (UA) Negative Urine Ketones Negative Urine Blood Negative Urine Nitrite Negative Urine Bilirubin Negative Urine Urobilinogen Negative Ur Leukocyte Esterase Negative RPR Titer 04/21/18 05:45 WBC RBC Hgb Hct MCV MCH MCHC RDW Plt Count MPV Sodium Potassium Chloride Carbon Dioxide Anion Gap BUN Creatinine Creat Clearance w eGFR Random Glucose Calcium Total Bilirubin AST ALT Alkaline Phosphatase Total Protein Albumin Urine Color Urine Appearance Urine pH Ur Specific [place] Urine Protein Urine Glucose (UA) Urine Ketones Urine Blood Urine Nitrite Urine Bilirubin Urine Urobilinogen Ur Leukocyte Esterase RPR Titer Nonreactive LABS NOTED. - Treatment Hospital Course: Detox Protocol Followed, Detoxed Safely, Responded well, Discharged Condition Good, Rehab Referral Accepted Patient has Accepted a Rehab Referral to: [facility] ([place], [place]). - Medication Discharge Medications: Ambulatory Orders Sertraline HCl [Zoloft -] 50 mg PO DAILY #30 tablet 07/08/17 Methadone [Dolophine -] 100 mg PO DAILY 03/19/18 Pantoprazole Sodium [Protonix] 40 mg PO DAILY 03/23/18 Quetiapine Fumarate [Seroquel] 200 mg PO HS 04/20/18 Lisinopril 10 mg PO DAILY #30 tablet 04/23/18 - Diagnosis (1) Alcohol dependence with uncomplicated withdrawal Status: Acute (2) Anemia Status: Acute Qualifiers: Anemia type: unspecified type Qualified Code(s): D64.9 - Anemia, unspecified (3) Psychiatric disorder Status: Chronic (4) Sedative, hypnotic or anxiolytic dependence with withdrawal, uncomplicated Status: Acute (5) Cocaine dependence Status: Chronic Qualifiers: Substance use status: uncomplicated Qualified Code(s): F14.20 - Cocaine dependence, uncomplicated (6) GERD (gastroesophageal reflux disease) Status: Chronic Qualifiers: Esophagitis presence: without esophagitis Qualified Code(s): K21.9 - Gastro -esophageal reflux disease without esophagitis (7) Hepatitis C Status: Chronic Qualifiers: Viral hepatitis chronicity: chronic Hepatic coma status: without hepatic coma Qualified Code(s): B18.2 - Chronic viral hepatitis C (8) Hypertension Status: Chronic Qualifiers: Hypertension type: essential hypertension Qualified Code(s): I10 - Essential (primary) hypertension (9) Insomnia Status: Chronic Qualifiers: Insomnia type: unspecified Qualified Code(s): G47.00 - Insomnia, unspecified (10) Nicotine dependence Status: Chronic Qualifiers: Nicotine product type: cigarettes Substance use status: uncomplicated Qualified Code(s): F17.210 - Nicotine dependence, cigarettes, uncomplicated (11) Non-compliant patient Status: Chronic (12) Opioid dependence on agonist therapy Status: Chronic (13) Schizoaffective disorder Status: Chronic Qualifiers: Schizoaffective disorder type: bipolar Qualified Code(s): F25.0 - Schizoaffective disorder, bipolar type (14) Positive PPD Status: Resolved - AMA Did Patient Leave Against Medical Advice: No
[2018-04-23] MEDS ORDERED: chlordiazePOXIDE HCL 10 MG CAPSULE PO SCH (23:00)
== END 2018-04-23 12:05 | disposition home or self-care (01) | DRG 773 ==
LOC: YASAS 11:50 → Y3N 15:14
PROVIDERS: ADMIT Surgery; ATTEND Surgery
PROC: HZ2ZZZZ Detoxification Services for Substance Abuse Treatment (ICD-10-PCS; principal; 2018-04-20)
DX: F10.230 Alcohol dependence with withdrawal, uncomplicated (principal); F13.230 Sedative, hypnotic or anxiolytic dependence with withdrawal, uncomplicated; F14.20 Cocaine dependence, uncomplicated; F11.20 Opioid dependence, uncomplicated; F17.210 Nicotine dependence, cigarettes, uncomplicated; F25.9 Schizoaffective disorder, unspecified; I10 Essential (primary) hypertension; K21.9 Gastro-esophageal reflux disease without esophagitis; B18.2 Chronic viral hepatitis C; G47.00 Insomnia, unspecified; Z91.5 Personal history of self-harm; Z91.19 Patient's noncompliance with other medical treatment and regimen
CPT/HCPCS: 36415; 80053; 81003; 85027; 86593

== ENCOUNTER 2019-03-03 10:17 | Inpatient (IN) | payer OTHER ==
[2019-03-03 12:10] VITALS: BMI 30.7
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
[2019-03-03] MEDS ORDERED: MAG HYDROX/AL HYDROX/SIMETH 30 ML UNIT-DOSE CUP PO PRN (15:45)
[2019-03-03] MEDS ORDERED: METHOCARBAMOL 500 MG TABLET PO PRN (15:45)
[2019-03-03] MEDS ORDERED: hydrOXYzine PAMOATE 25 MG CAPSULE (FP) PO PRN (15:45)
[2019-03-03] MEDS ORDERED: BISMUTH SUBSALICYLATE 524 MG/30 ML UD PO PRN (15:45)
[2019-03-03] MEDS ORDERED: chlordiazePOXIDE HCL 25 MG CAPSULE PO PRN (15:45)
[2019-03-03] MEDS ORDERED: NICOTINE POLACRILEX 2 MG GUM BUC PRN (15:45)
[2019-03-03] MEDS ORDERED: MAGNESIUM HYDROX 2400MG/30ML ORAL SUSPENSION 30 ML CUP PO PRN (15:45)
[2019-03-03] MEDS ORDERED: ACETAMINOPHEN 325 MG TABLET (FP) PO PRN (15:45)
[2019-03-03] MEDS ORDERED: MAGNESIUM CITRATE 300 ML BOTTLE PO PRN (15:45)
[2019-03-03] MEDS: chlordiazePOXIDE HCL 25 MG CAPSULE PO SCH ×2 (17:41→22:37)
[2019-03-03] MEDS ORDERED: MELATONIN 5 MG TABLETS PO PRN (22:00)
[2019-03-03] MEDS: THIAMINE HCL 100 MG TABLET (FP) PO SCH (22:38)
[2019-03-04] MEDS: chlordiazePOXIDE HCL 25 MG CAPSULE PO SCH ×4 (05:01→22:35)
[2019-03-04] MEDS ORDERED: METHADONE HCL 40 MG DISPERSABLE TABLET ONE (09:06)
[2019-03-04] MEDS ORDERED: METHADONE HCL 10 MG TABLET ONE (09:06)
[2019-03-04] MEDS ORDERED: METHADONE HCL 10 MG TABLET PO SCH (10:00)
[2019-03-04] MEDS ORDERED: METHADONE 120 MG, METHADONE 10 MG PO SCH (10:00)
[2019-03-04] MEDS: LISINOPRIL 10 MG TABLET (FP) PO SCH (10:06)
[2019-03-04] MEDS: PANTOPRAZOLE 40 MG TABLET (FP) PO SCH (10:06)
[2019-03-04] MEDS: PRENATAL VITAMINS W/ FOLIC ACID TABLET (FP) PO SCH (10:06)
[2019-03-04] MEDS: NICOTINE 14 MG/24 HOURS TOPICAL PATCH TD SCH (10:08)
[2019-03-04] MEDS ORDERED: hydrOXYzine PAMOATE 25 MG CAPSULE (FP) PO PRN (10:22)
--- NOTE | 2019-03-04 10:25 | PN ---
S CIWA - CIWA Score Nausea/Vomitin Muscle Tremors: 4-Moderate,w/Arms Extend Anxiety: 4-Mod. Anxious/Guarded Agitation: 4-Moderately Restless Paroxysmal Sweats: 1-Minimal Palms Moist Orientation: 0-Oriented Tacttile Disturbances: 0-None Auditory Disturbances: 0-None Visual Disturbances: 0-None Headache: 1-Very Mild CIWA-Ar Total Score: 16 B[facility] Progress Note (SOAP) Subjective: pt states he feels like he is in withdrawal. Admitted yesterday for alcohol detox O: Vital Signs - 24 hr 03/03/19 03/03/19 03/03/19 12:07 18:03 22:51 Temperature 97.0 F L 97.8 F 98.5 F Pulse Rate 65 63 60 Respiratory 20 20 20 Rate Blood Pressure 148/82 144/85 141/86 03/04/19 03/04/19 03/04/19 00:30 03:30 06:05 Temperature 97 F L Pulse Rate 56 L Respiratory 18 18 18 Rate Blood Pressure 150/94 03/04/19 09:00 Temperature 96 F L Pulse Rate 65 Respiratory 20 Rate Blood Pressure 119/70 labs pending a/p: AUD- continue detox protocol. d/w pt that he has prn librium, clonidine and vistaril for symptom treatment Continue OUD treatment with methadone
[2019-03-04 10:43] LABS: HEMATOCRIT 37.3 % (35.4-49); HEMOGLOBIN 11.9 GM/dL (11.7-16.9); MCH 28.2 pg (25.7-33.7); MCHC 31.9 g/dl (32.0-35.9); MEAN CELL VOLUME 88.6 fl (80-96); MEAN PLT VOLUME 9.8 fl (7.5-11.1); PLATELET COUNT 227 K/MM3 (134-434); RBC 4.21 M/mm3 (4.00-5.60); RDW 15.1 % (11.9-15.9)
[2019-03-04 11:00] LABS: BILIRUBIN,TOTAL 0.3 mg/dL (0.2-1); BLOOD UREA NITROGEN 14.8 mg/dL (7-18); CREATININE 1.1 mg/dL (0.55-1.3); POTASSIUM 3.7 mmol/L (3.5-5.1); TOT PROT 6.8 g/dl (6.4-8.2)
--- NOTE | 2019-03-04 11:36 | EKG ---
Test Reason : Blood Pressure : / mmHG Vent. Rate : 056 BPM Atrial Rate : 056 BPM P-R Int : 142 ms QRS Dur : 086 ms QT Int : 430 ms P-R-T Axes : 043 021 045 degrees QTc Int : 414 ms SINUS BRADYCARDIA NONSPECIFIC ST AND T WAVE ABNORMALITY ABNORMAL ECG WHEN COMPARED WITH ECG OF 03-MAR-2019 16:50, NO SIGNIFICANT CHANGE WAS FOUND Confirmed by KIRSTEN IVY MD ([id number]) on 03/04/2019 11:36:28 AM Referred By: GUCCI GAUTHIER Confirmed By:KIRSTEN IVY MD
--- NOTE | 2019-03-04 11:40 | EKG ---
Test Reason : Blood Pressure : / mmHG Vent. Rate : 056 BPM Atrial Rate : 056 BPM P-R Int : 148 ms QRS Dur : 088 ms QT Int : 446 ms P-R-T Axes : 044 005 059 degrees QTc Int : 430 ms SINUS BRADYCARDIA ABNORMAL ECG Confirmed by KIRSTEN IVY MD ([id number]) on 03/04/2019 11:40:13 AM Referred By: Confirmed By:KIRSTEN IVY MD
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
[2019-03-04] MEDS: cloNIDine HCL 0.1 MG TABLET PO PRN (15:17)
[2019-03-04] MEDS ORDERED: QUEtiapine FUMARATE 200 MG TABLET PO SCH (22:00)
[2019-03-04] MEDS: QUEtiapine FUMARATE 100 MG TABLET (FP) PO SCH (22:35)
[2019-03-04] MEDS: THIAMINE HCL 100 MG TABLET (FP) PO SCH (22:35)
[2019-03-05] MEDS ORDERED: METHADONE HCL 10 MG TABLET ONE (04:03)
[2019-03-05] MEDS ORDERED: METHADONE HCL 40 MG DISPERSABLE TABLET ONE (04:03)
[2019-03-05] MEDS: METHADONE 120 MG, METHADONE 10 MG PO SCH (05:17)
[2019-03-05] MEDS: chlordiazePOXIDE HCL 25 MG CAPSULE PO SCH ×4 (05:17→22:06)
[2019-03-05] MEDS: PRENATAL VITAMINS W/ FOLIC ACID TABLET (FP) PO SCH (10:38)
[2019-03-05] MEDS: PANTOPRAZOLE 40 MG TABLET (FP) PO SCH (10:38)
[2019-03-05] MEDS: LISINOPRIL 10 MG TABLET (FP) PO SCH (10:38)
[2019-03-05] MEDS: SERTRALINE HCL 50 MG TABLET (FP) PO SCH (10:38)
[2019-03-05] MEDS: NICOTINE 14 MG/24 HOURS TOPICAL PATCH TD SCH (10:39)
--- NOTE | 2019-03-05 11:01 | PN ---
S CIWA - CIWA Score Nausea/Vomitin-No Nausea/No Vomiting Muscle Tremors: 2 Anxiety: 3 Agitation: 2 Paroxysmal Sweats: 3 Orientation: 0-Oriented Tacttile Disturbances: 0-None Auditory Disturbances: 0-None Visual Disturbances: 0-None Headache: 2-Mild CIWA-Ar Total Score: 12 S Progress Note (SOAP) Subjective: c/o headache, anxiety, sweats, and shakes. Objective: 03/05/19 11:00 Vital Signs 03/05/19 03/05/19 03/05/19 03:30 06:45 09:18 Temperature 96.7 F L 98.8 F Pulse Rate 58 L 66 Respiratory 18 18 18 Rate Blood Pressure 113/75 115/76 Laboratory Last Values WBC 5.0 K/mm3 (4.0-10.0) 03/04/19 07:45 RBC 4.21 M/mm3 (4.00-5.60) 03/04/19 07:45 Hgb 11.9 GM/dL (11.7-16.9) 03/04/19 07:45 Hct 37.3 % (35.4-49) 03/04/19 07:45 MCV 88.6 fl (80-96) 03/04/19 07:45 MCH 28.2 pg (25.7-33.7) 03/04/19 07:45 MCHC 31.9 g/dl (32.0-35.9) L 03/04/19 07:45 RDW 15.1 % (11.9-15.9) D 03/04/19 07:45 Plt Count 227 K/MM3 (134-434) 03/04/19 07:45 MPV 9.8 fl (7.5-11.1) 03/04/19 07:45 Sodium 140 mmol/L (136-145) 03/04/19 07:45 Potassium 3.7 mmol/L (3.5-5.1) 03/04/19 07:45 Chloride 107 mmol/L (98-107) 03/04/19 07:45 Carbon Dioxide 29 mmol/L (21-32) 03/04/19 07:45 Anion Gap 5 MMOL/L (8-16) L 03/04/19 07:45 BUN 14.8 mg/dL (7-18) 03/04/19 07:45 Creatinine 1.1 mg/dL (0.55-1.3) 03/04/19 07:45 Est GFR (CKD-EPI)AfAm 89.61 03/04/19 07:45 Est GFR (CKD-EPI)NonAf 77.32 03/04/19 07:45 Random Glucose 120 mg/dL (74-106) H 03/04/19 07:45 Calcium 9.0 mg/dL (8.5-10.1) 03/04/19 07:45 Total Bilirubin 0.3 mg/dL (0.2-1) 03/04/19 07:45 AST 29 U/L (15-37) 03/04/19 07:45 ALT 43 U/L (13-61) 03/04/19 07:45 Alkaline Phosphatase 87 U/L (45-117) 03/04/19 07:45 Total Protein 6.8 g/dl (6.4-8.2) 03/04/19 07:45 Albumin 3.0 g/dl (3.4-5.0) L 03/04/19 07:45 RPR Titer Nonreactive (NONREACTIVE) 03/04/19 07:45 Labs noted. Assessment: 03/05/19 11:00 AOX3, in no acute respiratory distress. Full ROM, ambulating in the unit. Withdrawal symptoms. Plan: continue detox.
[2019-03-05] MEDS: IBUPROFEN 400 MG TABLET (FP) PO PRN (12:56)
[2019-03-05] MEDS: ACETAMINOPHEN 325 MG TABLET (FP) PO PRN (17:30)
[2019-03-05] MEDS: MENTHOL/PHENOL 1 EACH UD MM PRN ×2 (17:30→22:09)
[2019-03-05] MEDS: QUEtiapine FUMARATE 100 MG TABLET (FP) PO SCH (22:06)
[2019-03-05] MEDS: THIAMINE HCL 100 MG TABLET (FP) PO SCH (22:06)
[2019-03-06] MEDS ORDERED: chlordiazePOXIDE HCL 10 MG CAPSULE PO PRN
[2019-03-06] MEDS ORDERED: METHADONE HCL 40 MG DISPERSABLE TABLET ONE (03:57)
[2019-03-06] MEDS ORDERED: METHADONE HCL 10 MG TABLET ONE (03:57)
[2019-03-06] MEDS: METHADONE 120 MG, METHADONE 10 MG PO SCH (05:01)
[2019-03-06] MEDS: chlordiazePOXIDE HCL 10 MG CAPSULE PO SCH ×4 (05:01→22:18)
[2019-03-06] MEDS: IBUPROFEN 400 MG TABLET (FP) PO PRN (06:30)
--- NOTE | 2019-03-06 10:12 | PN ---
[facility] CIWA - CIWA Score Nausea/Vomitin-No Nausea/No Vomiting Muscle Tremors: 2 Anxiety: 3 Agitation: 2 Paroxysmal Sweats: 1-Minimal Palms Moist Orientation: 0-Oriented Tacttile Disturbances: 0-None Auditory Disturbances: 0-None Visual Disturbances: 1-Very Mild Sensitivity Headache: 0-None Present CIWA-Ar Total Score: 9 S Progress Note (SOAP) Subjective: 53 years old male admitted on for alcohol withdrawal sx management treating with librium detox regimen requests to be seen by a psychiatrist that he was taking seroquel 200 mg po at night requests to be see by a department store door greeter for weight loss department store door greeter referral Objective: 03/06/19 10:18 Vital Signs Temperature 96.8 F L 03/06/19 09:05 Pulse Rate 71 03/06/19 09:05 Respiratory Rate 18 03/06/19 09:05 Blood Pressure 121/88 03/06/19 09:05 O2 Sat by Pulse Oximetry (%) Laboratory Last Values WBC 5.0 K/mm3 (4.0-10.0) 03/04/19 07:45 RBC 4.21 M/mm3 (4.00-5.60) 03/04/19 07:45 Hgb 11.9 GM/dL (11.7-16.9) 03/04/19 07:45 Hct 37.3 % (35.4-49) 03/04/19 07:45 MCV 88.6 fl (80-96) 03/04/19 07:45 MCH 28.2 pg (25.7-33.7) 03/04/19 07:45 MCHC 31.9 g/dl (32.0-35.9) L 03/04/19 07:45 RDW 15.1 % (11.9-15.9) D 03/04/19 07:45 Plt Count 227 K/MM3 (134-434) 03/04/19 07:45 MPV 9.8 fl (7.5-11.1) 03/04/19 07:45 Sodium 140 mmol/L (136-145) 03/04/19 07:45 Potassium 3.7 mmol/L (3.5-5.1) 03/04/19 07:45 Chloride 107 mmol/L (98-107) 03/04/19 07:45 Carbon Dioxide 29 mmol/L (21-32) 03/04/19 07:45 Anion Gap 5 MMOL/L (8-16) L 03/04/19 07:45 BUN 14.8 mg/dL (7-18) 03/04/19 07:45 Creatinine 1.1 mg/dL (0.55-1.3) 03/04/19 07:45 Est GFR (CKD-EPI)AfAm 89.61 03/04/19 07:45 Est GFR (CKD-EPI)NonAf 77.32 03/04/19 07:45 Random Glucose 120 mg/dL (74-106) H 03/04/19 07:45 Calcium 9.0 mg/dL (8.5-10.1) 03/04/19 07:45 Total Bilirubin 0.3 mg/dL (0.2-1) 03/04/19 07:45 AST 29 U/L (15-37) 03/04/19 07:45 ALT 43 U/L (13-61) 03/04/19 07:45 Alkaline Phosphatase 87 U/L (45-117) 03/04/19 07:45 Total Protein 6.8 g/dl (6.4-8.2) 03/04/19 07:45 Albumin 3.0 g/dl (3.4-5.0) L 03/04/19 07:45 RPR Titer Nonreactive (NONREACTIVE) 03/04/19 07:45 lab noted Assessment: 03/06/19 10:18 alcohol withdrawal Plan: libirum regimen
[2019-03-06] MEDS: LISINOPRIL 10 MG TABLET (FP) PO SCH (10:29)
[2019-03-06] MEDS: PANTOPRAZOLE 40 MG TABLET (FP) PO SCH (10:30)
[2019-03-06] MEDS: PRENATAL VITAMINS W/ FOLIC ACID TABLET (FP) PO SCH (10:30)
[2019-03-06] MEDS: NICOTINE 14 MG/24 HOURS TOPICAL PATCH TD SCH (10:30)
[2019-03-06] MEDS: SERTRALINE HCL 50 MG TABLET (FP) PO SCH (10:31)
[2019-03-06] MEDS: QUEtiapine FUMARATE 100 MG TABLET (FP) PO SCH (22:18)
[2019-03-06] MEDS: THIAMINE HCL 100 MG TABLET (FP) PO SCH (22:18)
[2019-03-06] MEDS: ACETAMINOPHEN 325 MG TABLET (FP) PO PRN (22:20)
[2019-03-07] MEDS ORDERED: METHADONE HCL 40 MG DISPERSABLE TABLET ONE (04:20)
[2019-03-07] MEDS ORDERED: METHADONE HCL 10 MG TABLET ONE (04:20)
[2019-03-07] MEDS: METHADONE 120 MG, METHADONE 10 MG PO SCH (05:40)
[2019-03-07] MEDS: chlordiazePOXIDE HCL 10 MG CAPSULE PO SCH ×2 (05:41→16:35)
[2019-03-07] MEDS: LISINOPRIL 10 MG TABLET (FP) PO SCH (09:45)
[2019-03-07] MEDS: PRENATAL VITAMINS W/ FOLIC ACID TABLET (FP) PO SCH (09:45)
[2019-03-07] MEDS: PANTOPRAZOLE 40 MG TABLET (FP) PO SCH (09:45)
[2019-03-07] MEDS: SERTRALINE HCL 50 MG TABLET (FP) PO SCH (09:45)
[2019-03-07] MEDS: NICOTINE 14 MG/24 HOURS TOPICAL PATCH TD SCH (09:47)
--- NOTE | 2019-03-07 10:58 | PN ---
S CIWA - CIWA Score Nausea/Vomitin-No Nausea/No Vomiting Muscle Tremors: 1-None Visible, but [place] Anxiety: 1-Mildly Anxious Agitation: 1-Slight > Activity Paroxysmal Sweats: 1-Minimal Palms Moist Orientation: 0-Oriented Tacttile Disturbances: 0-None Auditory Disturbances: 0-None Visual Disturbances: 1-Very Mild Sensitivity Headache: 0-None Present CIWA-Ar Total Score: 5 B[facility] Progress Note (SOAP) Subjective: 53 yeas old male admitted on 03/03/19 for alcohol withdrawal sx management treating with librium detox regimen feeling better today less tremor mild anxiety slept through the night Objective: 03/07/19 11:00 Vital Signs Temperature 97.0 F L 03/07/19 09:20 Pulse Rate 79 03/07/19 09:20 Respiratory Rate 18 03/07/19 09:20 Blood Pressure 139/90 03/07/19 09:20 O2 Sat by Pulse Oximetry (%) Laboratory Last Values WBC 5.0 K/mm3 (4.0-10.0) 03/04/19 07:45 RBC 4.21 M/mm3 (4.00-5.60) 03/04/19 07:45 Hgb 11.9 GM/dL (11.7-16.9) 03/04/19 07:45 Hct 37.3 % (35.4-49) 03/04/19 07:45 MCV 88.6 fl (80-96) 03/04/19 07:45 MCH 28.2 pg (25.7-33.7) 03/04/19 07:45 MCHC 31.9 g/dl (32.0-35.9) L 03/04/19 07:45 RDW 15.1 % (11.9-15.9) D 03/04/19 07:45 Plt Count 227 K/MM3 (134-434) 03/04/19 07:45 MPV 9.8 fl (7.5-11.1) 03/04/19 07:45 Sodium 140 mmol/L (136-145) 03/04/19 07:45 Potassium 3.7 mmol/L (3.5-5.1) 03/04/19 07:45 Chloride 107 mmol/L (98-107) 03/04/19 07:45 Carbon Dioxide 29 mmol/L (21-32) 03/04/19 07:45 Anion Gap 5 MMOL/L (8-16) L 03/04/19 07:45 BUN 14.8 mg/dL (7-18) 03/04/19 07:45 Creatinine 1.1 mg/dL (0.55-1.3) 03/04/19 07:45 Est GFR (CKD-EPI)AfAm 89.61 03/04/19 07:45 Est GFR (CKD-EPI)NonAf 77.32 03/04/19 07:45 Random Glucose 120 mg/dL (74-106) H 03/04/19 07:45 Calcium 9.0 mg/dL (8.5-10.1) 03/04/19 07:45 Total Bilirubin 0.3 mg/dL (0.2-1) 03/04/19 07:45 AST 29 U/L (15-37) 03/04/19 07:45 ALT 43 U/L (13-61) 03/04/19 07:45 Alkaline Phosphatase 87 U/L (45-117) 03/04/19 07:45 Total Protein 6.8 g/dl (6.4-8.2) 03/04/19 07:45 Albumin 3.0 g/dl (3.4-5.0) L 03/04/19 07:45 RPR Titer Nonreactive (NONREACTIVE) 03/04/19 07:45 lab noted Assessment: 03/07/19 11:00 alcohol withdrawal Plan: librium regimen
[2019-03-07] MEDS: cloNIDine HCL 0.1 MG TABLET PO PRN (20:42)
[2019-03-07] MEDS: THIAMINE HCL 100 MG TABLET (FP) PO SCH (22:32)
[2019-03-07] MEDS: QUEtiapine FUMARATE 100 MG TABLET (FP) PO SCH (22:32)
[2019-03-08] MEDS ORDERED: METHADONE HCL 40 MG DISPERSABLE TABLET ONE (04:29)
[2019-03-08] MEDS ORDERED: METHADONE HCL 10 MG TABLET ONE (04:29)
[2019-03-08] MEDS ORDERED: chlordiazePOXIDE HCL 10 MG CAPSULE PO ONE (05:00)
[2019-03-08] MEDS: METHADONE 120 MG, METHADONE 10 MG PO SCH (06:06)
[2019-03-08] MEDS: MENTHOL/PHENOL 1 EACH UD MM PRN ×2 (06:10→10:21)
[2019-03-08 09:54] VITALS: BP 117/81; PULSE 71; TEMP 97.9
[2019-03-08] MEDS: NICOTINE 14 MG/24 HOURS TOPICAL PATCH TD SCH (10:18)
[2019-03-08] MEDS: LISINOPRIL 10 MG TABLET (FP) PO SCH (10:19)
[2019-03-08] MEDS: SERTRALINE HCL 50 MG TABLET (FP) PO SCH (10:19)
[2019-03-08] MEDS: PANTOPRAZOLE 40 MG TABLET (FP) PO SCH (10:19)
[2019-03-08] MEDS: PRENATAL VITAMINS W/ FOLIC ACID TABLET (FP) PO SCH (10:19)
--- NOTE | 2019-03-08 11:43 | DS ---
[facility] Detox Discharge Summary Admission Date: 03/03/19 Discharge Date: 03/08/19 - History Present History: Alcohol Dependence Additional Comments: 53 years old male admitted on 03/03/19 for alcohol withdrawal sx management treated with librium detox regimen patient completed librium detox regimen and tolerated well alert oriented x 3 respiratory clear lungs bilaterally on auscultatin c/o sore throat oral pharyngeal erythematous mild swell no lesion no discharge noted no lymphadenopathy speech clearly no drooling ate breakfast [id number]-[id number] extremities full range of motion - Physical Exam Results Vital Signs: Vital Signs Temperature 97.9 F 03/08/19 09:53 Pulse Rate 71 03/08/19 09:53 Respiratory Rate 18 03/08/19 09:53 Blood Pressure 117/81 03/08/19 09:53 O2 Sat by Pulse Oximetry (%) Pertinent Admission Physical Exam Findings: alcohol withdrawal Laboratory Last Values WBC 5.0 K/mm3 (4.0-10.0) 03/04/19 07:45 RBC 4.21 M/mm3 (4.00-5.60) 03/04/19 07:45 Hgb 11.9 GM/dL (11.7-16.9) 03/04/19 07:45 Hct 37.3 % (35.4-49) 03/04/19 07:45 MCV 88.6 fl (80-96) 03/04/19 07:45 MCH 28.2 pg (25.7-33.7) 03/04/19 07:45 MCHC 31.9 g/dl (32.0-35.9) L 03/04/19 07:45 RDW 15.1 % (11.9-15.9) D 03/04/19 07:45 Plt Count 227 K/MM3 (134-434) 03/04/19 07:45 MPV 9.8 fl (7.5-11.1) 03/04/19 07:45 Sodium 140 mmol/L (136-145) 03/04/19 07:45 Potassium 3.7 mmol/L (3.5-5.1) 03/04/19 07:45 Chloride 107 mmol/L (98-107) 03/04/19 07:45 Carbon Dioxide 29 mmol/L (21-32) 03/04/19 07:45 Anion Gap 5 MMOL/L (8-16) L 03/04/19 07:45 BUN 14.8 mg/dL (7-18) 03/04/19 07:45 Creatinine 1.1 mg/dL (0.55-1.3) 03/04/19 07:45 Est GFR (CKD-EPI)AfAm 89.61 03/04/19 07:45 Est GFR (CKD-EPI)NonAf 77.32 03/04/19 07:45 Random Glucose 120 mg/dL (74-106) H 03/04/19 07:45 Calcium 9.0 mg/dL (8.5-10.1) 03/04/19 07:45 Total Bilirubin 0.3 mg/dL (0.2-1) 03/04/19 07:45 AST 29 U/L (15-37) 03/04/19 07:45 ALT 43 U/L (13-61) 03/04/19 07:45 Alkaline Phosphatase 87 U/L (45-117) 03/04/19 07:45 Total Protein 6.8 g/dl (6.4-8.2) 03/04/19 07:45 Albumin 3.0 g/dl (3.4-5.0) L 03/04/19 07:45 RPR Titer Nonreactive (NONREACTIVE) 03/04/19 07:45 lab noted - Treatment Hospital Course: Detox Protocol Followed, Detoxed Safely, Responded well, Discharged Condition Good, Rehab Referral Accepted Patient has Accepted [facility] Ref[facility] - Medication Discharge Medications: Ambulatory Orders Sertraline HCl [Zoloft -] 50 mg PO DAILY #30 tablet 07/08/17 Methadone [Dolophine -] 130 mg PO DAILY 03/19/18 Pantoprazole Sodium [Protonix] 40 mg PO DAILY 03/23/18 Quetiapine Fumarate [Seroquel -] 200 mg PO HS 04/20/18 Lisinopril 10 mg PO DAILY #30 tablet 04/23/18 - Diagnosis (1) Laryngitis Current Visit: Yes Status: Acute (2) Alcohol dependence with uncomplicated withdrawal Current Visit: Yes Status: Acute (3) GERD (gastroesophageal reflux disease) Current Visit: Yes Status: Chronic Qualifiers: Esophagitis presence: without esophagitis Qualified Code(s): K21.9 - Gastro -esophageal reflux disease without esophagitis (4) Hepatitis C Current Visit: Yes Status: Chronic Qualifiers: Viral hepatitis chronicity: chronic Hepatic coma status: without hepatic coma Qualified Code(s): B18.2 - Chronic viral hepatitis C (5) Hypertension Current Visit: Yes Status: Chronic Qualifiers: Hypertension type: essential hypertension Qualified Code(s): I10 - Essential (primary) hypertension (6) Methadone maintenance therapy patient Current Visit: Yes Status: Chronic (7) Nicotine dependence Current Visit: Yes Status: Acute Qualifiers: Nicotine product type: cigarettes Substance use status: in withdrawal Qualified Code(s): F17.213 - Nicotine dependence, cigarettes, with withdrawal (8) Substance induced mood disorder Current Visit: Yes Status: Suspected (9) Positive PPD Current Visit: Yes Status: Resolved - AMA Did Patient Leave Against Medical Advice: No CIWA Score - CIWA Score Nausea/Vomitin-No Nausea/No Vomiting Muscle Tremors: 1-None Visible, but Garvin Anxiety: 1-Mildly Anxious Agitation: 0-Normal Activity Paroxysmal Sweats: No Perspiration Orientation: 0-Oriented Tacttile Disturbances: 0-None Auditory Disturbances: 0-None Visual Disturbances: 0-None Headache: 0-None Present CIWA-Ar Total Score: 2
== END 2019-03-08 11:50 | disposition other institution (70) | DRG 773 ==
LOC: YASAS 10:17 → Y3N 16:39
PROVIDERS: ADMIT Allergy & Immunology; ATTEND Allergy & Immunology
PROC: HZ2ZZZZ Detoxification Services for Substance Abuse Treatment (ICD-10-PCS; principal; 2019-03-03)
DX: F10.230 Alcohol dependence with withdrawal, uncomplicated (principal); F11.20 Opioid dependence, uncomplicated; F14.20 Cocaine dependence, uncomplicated; F19.24 Other psychoactive substance dependence with psychoactive substance-induced mood disorder; F25.0 Schizoaffective disorder, bipolar type; I10 Essential (primary) hypertension; K21.9 Gastro-esophageal reflux disease without esophagitis; J04.0 Acute laryngitis; B18.2 Chronic viral hepatitis C; G47.00 Insomnia, unspecified; E66.9 Obesity, unspecified; Z68.30 Body mass index [BMI] 30.0-30.9, adult; Z96.641 Presence of right artificial hip joint; Z91.14 Patient's other noncompliance with medication regimen; Z91.5 Personal history of self-harm
CPT/HCPCS: 36415; 71046-TC-FY; 80053; 85027; 86593; 93005; 93010; J0735

== ENCOUNTER 2019-03-08 11:03 | Inpatient (IN) | payer OTHER ==
--- NOTE | 2019-03-08 11:51 | HP ---
[facility] Rehab Assess/Revision - Admission History Admitted to Rehab from: [facility] Date of Admission to Rehab: 03/08/19 - Findings Detox History & Physical reviewed: Yes Concur with findings: Yes Comments/Additional Findings: tranferred from detox to rehab admission as per protocol Inpatient Rehab Admission - Rehab Decision to Admit Inpatient rehab admission?: Yes - Initial Determination Are CD services needed?: Yes Free of communicable disease: Yes Not in need of hospitalization: Yes - Rehab Admission Criteria Previous failed treatment: Yes Poor recovery environment: Yes Comorbidities: Yes Lacks judgement: Yes Patient is meeting Inpatient Rehab admission criteria:: Yes
[2019-03-08] MEDS ORDERED: MAGNESIUM HYDROX 2400MG/30ML ORAL SUSPENSION 30 ML CUP PO PRN (11:52)
[2019-03-08] MEDS ORDERED: LOPERAMIDE HCL 2 MG CAPSULE PO PRN (11:52)
[2019-03-08] MEDS ORDERED: ACETAMINOPHEN 325 MG TABLET (FP) PO PRN (11:52)
[2019-03-08] MEDS ORDERED: P-EPHED 60MG/TRIPROLIDI 2.5MG TABLET PO PRN (11:52)
[2019-03-08] MEDS ORDERED: IBUPROFEN 400 MG TABLET (FP) PO PRN (11:52)
[2019-03-08] MEDS ORDERED: NICOTINE POLACRILEX 2 MG GUM BUC PRN (11:52)
[2019-03-08] MEDS ORDERED: MAGNESIUM CITRATE 300 ML BOTTLE PO PRN (11:52)
[2019-03-08] MEDS ORDERED: AZITHROMYCIN 250 MG TABLET PO ONE (11:57)
[2019-03-08] MEDS: MENTHOL/PHENOL 1 EACH UD MM PRN (13:11)
--- NOTE | 2019-03-08 14:18 | PN ---
[facility] Progress Note Note: Pt admitted from [facility] today. Admitted on 03/03/19 for alcohol withdrawal sx management treated with librium detox regimen patient completed librium detox regimen and tolerated well alert oriented x 3 Pt c/o sore throat- was placed on Zithromax at discharge from detox. Vital Signs - 24 hr 03/08/19 12:26 Temperature 98.0 F Pulse Rate 75 Respiratory 18 Rate Blood Pressure 131/78 a/p: AUD- pt doing well for now. Came in from Sore throat- on zithromax from detox
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
[2019-03-08] MEDS: QUEtiapine FUMARATE 50 MG TABLET PO SCH (21:19)
[2019-03-08] MEDS: THIAMINE HCL 100 MG TABLET (FP) PO SCH (21:19)
[2019-03-08] MEDS: MELATONIN 5 MG TABLETS PO PRN (21:19)
[2019-03-08] MEDS ORDERED: QUEtiapine FUMARATE 100 MG TABLET (FP) PO SCH (22:00)
[2019-03-09] MEDS ORDERED: METHADONE HCL 10 MG TABLET ONE (06:15)
[2019-03-09] MEDS ORDERED: METHADONE HCL 40 MG DISPERSABLE TABLET ONE (06:15)
[2019-03-09] MEDS: METHADONE 120 MG, METHADONE 10 MG PO SCH (06:20)
[2019-03-09] MEDS: MENTHOL/PHENOL 1 EACH UD MM PRN (06:23)
[2019-03-09] MEDS: NICOTINE 14 MG/24 HOURS TOPICAL PATCH TD SCH (09:59)
[2019-03-09] MEDS: AZITHROMYCIN 250 MG TABLET PO SCH (09:59)
[2019-03-09] MEDS: PRENATAL VITAMINS W/ FOLIC ACID TABLET (FP) PO SCH (09:59)
[2019-03-09] MEDS: SERTRALINE HCL 50 MG TABLET (FP) PO SCH (09:59)
[2019-03-09] MEDS ORDERED: METHADONE HCL 40 MG DISPERSABLE TABLET PO SCH (10:00)
[2019-03-09] MEDS: LISINOPRIL 10 MG TABLET (FP) PO SCH (10:00)
[2019-03-09] MEDS ORDERED: METHADONE 120 MG, METHADONE 10 MG PO SCH (10:00)
[2019-03-09] MEDS: guaiFENesin 200 MG/10 ML 10 ML UNIT-DOSE CUPS PO PRN (10:01)
--- NOTE | 2019-03-09 10:49 | PN ---
[facility] Progress Note Note: Pt c/o continued sore throat. no fevers. on zithromax. Able to drink fluids, no n/v Vital Signs - 24 hr 03/08/19 03/09/19 03/09/19 12:26 00:30 03:30 Temperature 98.0 F Pulse Rate 75 Respiratory 18 20 18 Rate Blood Pressure 131/78 03/09/19 03/09/19 06:59 09:30 Temperature 97.2 F L 98.3 F Pulse Rate 69 73 Respiratory 18 18 Rate Blood Pressure 146/97 113/85 no fevers PE- with minimal neck swelling tenderness to palpation of uvula no exudates noted a/p: Sore throat:on antibiotics, no fevers, likely viral follow for now- send to ER if with fevers, increased difficulty swallowing - d/ w nurse and pt swab done to r/o strep infection
[2019-03-09] MEDS: hydrOXYzine PAMOATE 25 MG CAPSULE (FP) PO PRN (14:56)
--- NOTE | 2019-03-09 15:56 | PN ---
[facility] Progress Note Note: Pt now c/o rash that started on abdomen about 4 hours ago with itching all over body. Pt states he still has difficulty swallowing- has not gotten better is not worse Vital Signs - 24 hr 03/09/19 03/09/19 03/09/19 00:30 03:30 06:59 Temperature 97.2 F L Pulse Rate 69 Respiratory 20 18 18 Rate Blood Pressure 146/97 03/09/19 09:30 Temperature 98.3 F Pulse Rate 73 Respiratory 18 Rate Blood Pressure 113/85 lungs clear heart RRR maculo-papular rash on abdomen chest back and itching a/p: Sore throat- now with whole body rash and difficulty swallowing- not able to eat and drink liquids. Will send to ER for evaluation- called ER and d/w Dr. Heath
[2019-03-09] MEDS: MELATONIN 5 MG TABLETS PO PRN (21:46)
[2019-03-09] MEDS: THIAMINE HCL 100 MG TABLET (FP) PO SCH (21:46)
[2019-03-09] MEDS: QUEtiapine FUMARATE 50 MG TABLET PO SCH (21:46)
[2019-03-10] MEDS ORDERED: METHADONE HCL 10 MG TABLET ONE (03:58)
[2019-03-10] MEDS ORDERED: METHADONE HCL 40 MG DISPERSABLE TABLET ONE (03:58)
[2019-03-10] MEDS: METHADONE 120 MG, METHADONE 10 MG PO SCH (06:06)
[2019-03-10] MEDS: hydrOXYzine PAMOATE 25 MG CAPSULE (FP) PO PRN (09:54)
[2019-03-10] MEDS: PRENATAL VITAMINS W/ FOLIC ACID TABLET (FP) PO SCH (09:54)
[2019-03-10] MEDS: LISINOPRIL 10 MG TABLET (FP) PO SCH (09:54)
[2019-03-10] MEDS: SERTRALINE HCL 50 MG TABLET (FP) PO SCH (09:54)
[2019-03-10] MEDS: NICOTINE 14 MG/24 HOURS TOPICAL PATCH TD SCH (09:55)
[2019-03-10] MEDS: AZITHROMYCIN 250 MG TABLET PO SCH (09:55)
[2019-03-10] MEDS: QUEtiapine FUMARATE 50 MG TABLET PO SCH (21:19)
[2019-03-10] MEDS: THIAMINE HCL 100 MG TABLET (FP) PO SCH (21:19)
[2019-03-11] MEDS ORDERED: METHADONE HCL 10 MG TABLET ONE (05:34)
[2019-03-11] MEDS ORDERED: METHADONE HCL 40 MG DISPERSABLE TABLET ONE (05:35)
[2019-03-11] MEDS: METHADONE 120 MG, METHADONE 10 MG PO SCH (06:12)
[2019-03-11] MEDS: MAG HYDROX/AL HYDROX/SIMETH 30 ML UNIT-DOSE CUP PO PRN ×3 (07:35→21:12)
[2019-03-11] MEDS: LISINOPRIL 10 MG TABLET (FP) PO SCH (10:24)
[2019-03-11] MEDS: SERTRALINE HCL 50 MG TABLET (FP) PO SCH (10:24)
[2019-03-11] MEDS: AZITHROMYCIN 250 MG TABLET PO SCH (10:24)
[2019-03-11] MEDS: NICOTINE 14 MG/24 HOURS TOPICAL PATCH TD SCH (10:24)
[2019-03-11] MEDS: PRENATAL VITAMINS W/ FOLIC ACID TABLET (FP) PO SCH (10:25)
[2019-03-11] MEDS: PANTOPRAZOLE 40 MG TABLET PO SCH (10:25)
[2019-03-11] MEDS: QUEtiapine FUMARATE 50 MG TABLET PO SCH (21:12)
[2019-03-11] MEDS: THIAMINE HCL 100 MG TABLET (FP) PO SCH (21:12)
[2019-03-11] MEDS: MELATONIN 5 MG TABLETS PO PRN (21:12)
[2019-03-12] MEDS ORDERED: METHADONE HCL 10 MG TABLET ONE (05:32)
[2019-03-12] MEDS ORDERED: METHADONE HCL 40 MG DISPERSABLE TABLET ONE (05:32)
[2019-03-12] MEDS: METHADONE 120 MG, METHADONE 10 MG PO SCH (06:01)
[2019-03-12] MEDS: PANTOPRAZOLE 40 MG TABLET PO SCH (10:29)
[2019-03-12] MEDS: LISINOPRIL 10 MG TABLET (FP) PO SCH (10:29)
[2019-03-12] MEDS: NICOTINE 14 MG/24 HOURS TOPICAL PATCH TD SCH (10:29)
[2019-03-12] MEDS: PRENATAL VITAMINS W/ FOLIC ACID TABLET (FP) PO SCH (10:29)
[2019-03-12] MEDS: SERTRALINE HCL 50 MG TABLET (FP) PO SCH (10:30)
[2019-03-12] MEDS: THIAMINE HCL 100 MG TABLET (FP) PO SCH (21:40)
[2019-03-12] MEDS: QUEtiapine FUMARATE 50 MG TABLET PO SCH (21:40)
[2019-03-13] MEDS ORDERED: METHADONE HCL 10 MG TABLET ONE (05:35)
[2019-03-13] MEDS ORDERED: METHADONE HCL 40 MG DISPERSABLE TABLET ONE (05:35)
[2019-03-13] MEDS: METHADONE 120 MG, METHADONE 10 MG PO SCH (06:05)
[2019-03-13] MEDS: SERTRALINE HCL 50 MG TABLET (FP) PO SCH (10:26)
[2019-03-13] MEDS: LISINOPRIL 10 MG TABLET (FP) PO SCH (10:26)
[2019-03-13] MEDS: PANTOPRAZOLE 40 MG TABLET PO SCH (10:26)
[2019-03-13] MEDS: PRENATAL VITAMINS W/ FOLIC ACID TABLET (FP) PO SCH (10:26)
[2019-03-13] MEDS: NICOTINE 14 MG/24 HOURS TOPICAL PATCH TD SCH (10:27)
[2019-03-13] MEDS: QUEtiapine FUMARATE 50 MG TABLET PO SCH (21:21)
[2019-03-13] MEDS: THIAMINE HCL 100 MG TABLET (FP) PO SCH (21:21)
[2019-03-14] MEDS ORDERED: METHADONE HCL 10 MG TABLET ONE (05:29)
[2019-03-14] MEDS ORDERED: METHADONE HCL 40 MG DISPERSABLE TABLET ONE (05:29)
[2019-03-14] MEDS: METHADONE 120 MG, METHADONE 10 MG PO SCH (05:51)
[2019-03-14] MEDS: NICOTINE 14 MG/24 HOURS TOPICAL PATCH TD SCH (10:44)
[2019-03-14] MEDS: PANTOPRAZOLE 40 MG TABLET PO SCH (10:45)
[2019-03-14] MEDS: LISINOPRIL 10 MG TABLET (FP) PO SCH (10:45)
[2019-03-14] MEDS: PRENATAL VITAMINS W/ FOLIC ACID TABLET (FP) PO SCH (10:45)
[2019-03-14] MEDS: SERTRALINE HCL 50 MG TABLET (FP) PO SCH (10:45)
[2019-03-14] MEDS: hydrOXYzine PAMOATE 25 MG CAPSULE (FP) PO PRN (10:46)
[2019-03-14] MEDS: QUEtiapine FUMARATE 50 MG TABLET PO SCH (21:23)
[2019-03-14] MEDS: THIAMINE HCL 100 MG TABLET (FP) PO SCH (21:23)
[2019-03-14] MEDS: MELATONIN 5 MG TABLETS PO PRN (21:23)
[2019-03-15] MEDS ORDERED: METHADONE HCL 40 MG DISPERSABLE TABLET ONE (04:00)
[2019-03-15] MEDS ORDERED: METHADONE HCL 10 MG TABLET ONE (04:00)
[2019-03-15] MEDS: METHADONE 120 MG, METHADONE 10 MG PO SCH (06:06)
[2019-03-15] MEDS: PRENATAL VITAMINS W/ FOLIC ACID TABLET (FP) PO SCH (10:24)
[2019-03-15] MEDS: PANTOPRAZOLE 40 MG TABLET PO SCH (10:24)
[2019-03-15] MEDS: hydrOXYzine PAMOATE 25 MG CAPSULE (FP) PO PRN (10:24)
[2019-03-15] MEDS: SERTRALINE HCL 50 MG TABLET (FP) PO SCH (10:24)
[2019-03-15] MEDS: NICOTINE 14 MG/24 HOURS TOPICAL PATCH TD SCH (10:24)
[2019-03-15] MEDS: LISINOPRIL 10 MG TABLET (FP) PO SCH (10:24)
--- NOTE | 2019-03-15 10:53 | PN ---
Psychiatric Progress Note Vital Signs: Vital Signs Period Temp Pulse Resp BP Sys/Woods Pulse Ox Last 24 Hr 98.1 F 68-69 18-18 105-114/70-71 Date of Session: 03/15/19 Chief Complaint:: "I'm feeling depressed: HPI: 53 years old male with history of Schizoaffective Disorder and PMH of Asthma, HTN, GERD, Hep C admitted from detox on 03/08/19 for inpatient rehabilitation for alcohol and cocaine. Dr Wiley' note read and appreciated. He started patient on Seroquel 50 mg/hs but GRAIN BROKER ordered Zoloft 50 mg/day Current Medications: Active Medications Generic Name Dose Route Start Last Admin Trade Name Freq PRN Reason Stop Dose Admin Acetaminophen 650 mg 03/08/19 11:52 Tylenol - PO Q4H PRN FEVER Al Hydroxide/Mg Hydroxide 30 ml 03/08/19 11:52 03/11/19 21:12 Mylanta Oral Suspension - PO 30 ml Q6H PRN Administration DYSPEPSIA Eucalyptus/Menthol/Phenol/Sorbitol 1 each 03/08/19 11:52 03/09/19 06:23 Cepastat Lozenge - MM 1 each Q4H PRN Administration SORE THROAT Guaifenesin 10 ml 03/08/19 11:52 03/09/19 10:01 Robitussin - PO 10 ml Q6H PRN Administration COUGH Hydroxyzine Pamoate 25 mg 03/09/19 13:49 03/15/19 10:24 Vistaril - PO 25 mg Q4H PRN Administration AGITATION Ibuprofen 400 mg 03/08/19 11:52 03/08/19 13:12 Motrin - PO 400 mg Q6H PRN Administration Pain level 4-6 Lisinopril 10 mg 03/09/19 10:00 03/15/19 10:24 Prinivil PO 10 mg DAILY LISA Administration Loperamide HCl 4 mg 03/08/19 11:52 Imodium - PO Q6H PRN DIARRHEA Magnesium Citrate 300 ml 03/08/19 11:52 Citroma - PO Q48H PRN CONSTIPATION Magnesium Hydroxide 30 ml 03/08/19 11:52 Milk Of Magnesia - PO DAILY PRN CONSTIPATION Melatonin 5 mg 03/08/19 22:00 03/14/19 21:23 Melatonin PO 5 mg HS PRN Administration INSOMNIA Methadone HCl 120 mg/ 130 mg 03/16/19 06:00 Methadone HCl 10 mg PO 03/21/19 09:59 DAILY@0600 LISA Nicotine 14 mg 03/09/19 10:00 03/15/19 10:24 Nicoderm Patch - TD 14 mg DAILY LISA Administration Nicotine Polacrilex 2 mg 03/08/19 11:52 Nicorette Gum - BUC Q2H PRN NICOTINE REPLACEMENT RX Pantoprazole Sodium 40 mg 03/11/19 10:00 03/15/19 10:24 Protonix - PO 40 mg DAILY LISA Administration Multivit/Folic Acid/Iron 1 tab 03/09/19 10:00 03/15/19 10:24 Vitamins (Sjr) - PO 1 tab DAILY LISA Administration Pseudoephedrine/Triprolidine 1 combo 03/08/19 11:52 Actifed - PO TID PRN NASAL CONGESTION Quetiapine Fumarate 50 mg 03/08/19 22:00 03/14/19 21:23 Seroquel - PO 50 mg HS LISA Administration Sertraline HCl 50 mg 03/09/19 10:00 03/15/19 10:24 Zoloft - PO 50 mg DAILY LISA Administration Thiamine HCl 100 mg 03/08/19 22:00 03/14/19 21:23 Vitamin B1 - PO 100 mg HS LISA Administration Medication(s) Change(s): 1) Discontinue Seroquel 50 mg/hs and Zoloft 50 mg.day. 2) Start Seroquel 100 mg/hs and Zoloft 100 mg/day Current Side Effect: No Lab tests ordered: Yes Lab tests reviewed: Yes Provider note:: Patient reports that he has been feeling depressed and staying in bed too much. However, denies changes in appetite, lack of concentration as well as feeling hopeless, helpless and worthless. Denies S/H ideations Mental Status Exam - Mental Status Exam Alert and Oriented to: Time, Place, Person Cognitive Function: Fair Patient Appearance: Disheveled Mood: Depressed Affect: Appropriate Patient Behavior: Cooperative Speech Pattern: Clear Voice Loudness: Normal Thought Process: Intact, Goal Oriented Thought Disorder: Not Present Hallucinations: Denies Suicidal Ideation: Denies Homicidal Ideation: Denies Insight/Judgement: Fair Sleep: Fair Appetite: Good Muscle strength/Tone: Normal Gait/Station: Normal Psychiatric Treatment Plan - Problem List (1) Schizoaffective disorder Current Visit: Yes Qualifiers: Schizoaffective disorder type: bipolar Qualified Code(s): F25.0 - Schizoaffective disorder, bipolar type Comment: By history. Non-adherent to medications. (2) Alcohol use disorder Current Visit: Yes (3) Cocaine dependence Current Visit: Yes Qualifiers: Substance use status: uncomplicated Qualified Code(s): F14.20 - Cocaine dependence, uncomplicated (4) Opioid dependence on agonist therapy Current Visit: Yes (5) Nicotine dependence Current Visit: Yes Qualifiers: Nicotine product type: cigarettes Substance use status: in withdrawal Qualified Code(s): F17.213 - Nicotine dependence, cigarettes, with withdrawal Initial treatment plan: 1) Discontinue Seroquel 50 mg po HS and Zoloft 50 mg po daily. 2) Start Seroquel 100 mg po HS and Zoloft 100 mg po daily. 3) Continue inpatient rehabilitation
[2019-03-15] MEDS: MELATONIN 5 MG TABLETS PO PRN (21:19)
[2019-03-15] MEDS: THIAMINE HCL 100 MG TABLET (FP) PO SCH (21:19)
[2019-03-15] MEDS: QUEtiapine FUMARATE 100 MG TABLET (FP) PO SCH (21:20)
[2019-03-16] MEDS ORDERED: METHADONE HCL 40 MG DISPERSABLE TABLET ONE (05:34)
[2019-03-16] MEDS ORDERED: METHADONE HCL 10 MG TABLET ONE (05:34)
[2019-03-16] MEDS: METHADONE 120 MG, METHADONE 10 MG PO SCH (05:58)
[2019-03-16] MEDS: SERTRALINE HCL 50 MG TABLET (FP) PO SCH (10:10)
[2019-03-16] MEDS: PANTOPRAZOLE 40 MG TABLET PO SCH (10:10)
[2019-03-16] MEDS: NICOTINE 14 MG/24 HOURS TOPICAL PATCH TD SCH (10:10)
[2019-03-16] MEDS: PRENATAL VITAMINS W/ FOLIC ACID TABLET (FP) PO SCH (10:11)
[2019-03-16] MEDS: LISINOPRIL 10 MG TABLET (FP) PO SCH (10:11)
[2019-03-16] MEDS: hydrOXYzine PAMOATE 25 MG CAPSULE (FP) PO PRN (10:12)
[2019-03-16] MEDS: QUEtiapine FUMARATE 100 MG TABLET (FP) PO SCH (21:25)
[2019-03-16] MEDS: MELATONIN 5 MG TABLETS PO PRN (21:25)
[2019-03-16] MEDS: THIAMINE HCL 100 MG TABLET (FP) PO SCH (21:25)
[2019-03-17] MEDS ORDERED: METHADONE HCL 10 MG TABLET ONE (05:32)
[2019-03-17] MEDS ORDERED: METHADONE HCL 40 MG DISPERSABLE TABLET ONE (05:32)
[2019-03-17] MEDS: METHADONE 120 MG, METHADONE 10 MG PO SCH (06:04)
[2019-03-17] MEDS: SERTRALINE HCL 50 MG TABLET (FP) PO SCH (10:41)
[2019-03-17] MEDS: PANTOPRAZOLE 40 MG TABLET PO SCH (10:41)
[2019-03-17] MEDS: PRENATAL VITAMINS W/ FOLIC ACID TABLET (FP) PO SCH (10:41)
[2019-03-17] MEDS: LISINOPRIL 10 MG TABLET (FP) PO SCH (10:41)
[2019-03-17] MEDS: NICOTINE 14 MG/24 HOURS TOPICAL PATCH TD SCH (10:41)
[2019-03-17] MEDS: hydrOXYzine PAMOATE 25 MG CAPSULE (FP) PO PRN (10:43)
[2019-03-17] MEDS: QUEtiapine FUMARATE 100 MG TABLET (FP) PO SCH (21:25)
[2019-03-17] MEDS: THIAMINE HCL 100 MG TABLET (FP) PO SCH (21:25)
[2019-03-17] MEDS: MELATONIN 5 MG TABLETS PO PRN (21:25)
[2019-03-18] MEDS ORDERED: METHADONE HCL 10 MG TABLET ONE (05:34)
[2019-03-18] MEDS ORDERED: METHADONE HCL 40 MG DISPERSABLE TABLET ONE (05:34)
[2019-03-18] MEDS: METHADONE 120 MG, METHADONE 10 MG PO SCH (06:10)
[2019-03-18] MEDS: NICOTINE 14 MG/24 HOURS TOPICAL PATCH TD SCH (10:41)
[2019-03-18] MEDS: SERTRALINE HCL 50 MG TABLET (FP) PO SCH (10:41)
[2019-03-18] MEDS: PRENATAL VITAMINS W/ FOLIC ACID TABLET (FP) PO SCH (10:41)
[2019-03-18] MEDS: PANTOPRAZOLE 40 MG TABLET PO SCH (10:41)
[2019-03-18] MEDS: LISINOPRIL 10 MG TABLET (FP) PO SCH (10:42)
[2019-03-18] MEDS: hydrOXYzine PAMOATE 25 MG CAPSULE (FP) PO PRN (10:42)
[2019-03-18] MEDS: THIAMINE HCL 100 MG TABLET (FP) PO SCH (21:23)
[2019-03-18] MEDS: QUEtiapine FUMARATE 100 MG TABLET (FP) PO SCH (21:23)
[2019-03-18] MEDS: MELATONIN 5 MG TABLETS PO PRN (21:23)
[2019-03-19] MEDS ORDERED: METHADONE HCL 10 MG TABLET ONE (03:53)
[2019-03-19] MEDS ORDERED: METHADONE HCL 40 MG DISPERSABLE TABLET ONE (03:53)
[2019-03-19] MEDS: METHADONE 120 MG, METHADONE 10 MG PO SCH (06:25)
[2019-03-19] MEDS: PRENATAL VITAMINS W/ FOLIC ACID TABLET (FP) PO SCH (10:07)
[2019-03-19] MEDS: NICOTINE 14 MG/24 HOURS TOPICAL PATCH TD SCH (10:07)
[2019-03-19] MEDS: hydrOXYzine PAMOATE 25 MG CAPSULE (FP) PO PRN (10:07)
[2019-03-19] MEDS: LISINOPRIL 10 MG TABLET (FP) PO SCH (10:07)
[2019-03-19] MEDS: SERTRALINE HCL 50 MG TABLET (FP) PO SCH (10:07)
[2019-03-19] MEDS: PANTOPRAZOLE 40 MG TABLET PO SCH (10:07)
[2019-03-19] MEDS: QUEtiapine FUMARATE 100 MG TABLET (FP) PO SCH (21:23)
[2019-03-19] MEDS: THIAMINE HCL 100 MG TABLET (FP) PO SCH (21:23)
[2019-03-19] MEDS: MELATONIN 5 MG TABLETS PO PRN (21:24)
[2019-03-20] MEDS ORDERED: METHADONE HCL 10 MG TABLET ONE (03:42)
[2019-03-20] MEDS ORDERED: METHADONE HCL 40 MG DISPERSABLE TABLET ONE (03:42)
[2019-03-20] MEDS: METHADONE 120 MG, METHADONE 10 MG PO SCH (06:01)
[2019-03-20] MEDS: NICOTINE 14 MG/24 HOURS TOPICAL PATCH TD SCH (09:51)
[2019-03-20] MEDS: PANTOPRAZOLE 40 MG TABLET PO SCH (09:52)
[2019-03-20] MEDS: PRENATAL VITAMINS W/ FOLIC ACID TABLET (FP) PO SCH (09:52)
[2019-03-20] MEDS: SERTRALINE HCL 50 MG TABLET (FP) PO SCH (09:52)
[2019-03-20] MEDS: LISINOPRIL 10 MG TABLET (FP) PO SCH (09:52)
[2019-03-20] MEDS: hydrOXYzine PAMOATE 25 MG CAPSULE (FP) PO PRN (09:53)
[2019-03-20] MEDS: QUEtiapine FUMARATE 100 MG TABLET (FP) PO SCH (21:17)
[2019-03-20] MEDS: THIAMINE HCL 100 MG TABLET (FP) PO SCH (21:17)
[2019-03-20] MEDS: MELATONIN 5 MG TABLETS PO PRN (21:18)
[2019-03-21] MEDS ORDERED: METHADONE HCL 10 MG TABLET ONE (04:00)
[2019-03-21] MEDS ORDERED: METHADONE HCL 40 MG DISPERSABLE TABLET ONE (04:01)
[2019-03-21] MEDS: METHADONE 120 MG, METHADONE 10 MG PO SCH (06:02)
[2019-03-21] MEDS: hydrOXYzine PAMOATE 25 MG CAPSULE (FP) PO PRN (10:23)
[2019-03-21] MEDS: PRENATAL VITAMINS W/ FOLIC ACID TABLET (FP) PO SCH (10:23)
[2019-03-21] MEDS: SERTRALINE HCL 50 MG TABLET (FP) PO SCH (10:23)
[2019-03-21] MEDS: PANTOPRAZOLE 40 MG TABLET PO SCH (10:23)
[2019-03-21] MEDS: LISINOPRIL 10 MG TABLET (FP) PO SCH (10:23)
[2019-03-21] MEDS: NICOTINE 14 MG/24 HOURS TOPICAL PATCH TD SCH (10:24)
[2019-03-21] MEDS: MELATONIN 5 MG TABLETS PO PRN (22:09)
[2019-03-21] MEDS: THIAMINE HCL 100 MG TABLET (FP) PO SCH (22:09)
[2019-03-21] MEDS: QUEtiapine FUMARATE 100 MG TABLET (FP) PO SCH (22:09)
[2019-03-22] MEDS ORDERED: METHADONE HCL 10 MG TABLET ONE (03:54)
[2019-03-22] MEDS ORDERED: METHADONE HCL 40 MG DISPERSABLE TABLET ONE (03:54)
[2019-03-22] MEDS: METHADONE 120 MG, METHADONE 10 MG PO SCH (06:11)
[2019-03-22] MEDS: LISINOPRIL 10 MG TABLET (FP) PO SCH (10:07)
[2019-03-22] MEDS: hydrOXYzine PAMOATE 25 MG CAPSULE (FP) PO PRN (10:07)
[2019-03-22] MEDS: SERTRALINE HCL 50 MG TABLET (FP) PO SCH (10:07)
[2019-03-22] MEDS: PANTOPRAZOLE 40 MG TABLET PO SCH (10:07)
[2019-03-22] MEDS: PRENATAL VITAMINS W/ FOLIC ACID TABLET (FP) PO SCH (10:07)
[2019-03-22] MEDS: NICOTINE 14 MG/24 HOURS TOPICAL PATCH TD SCH (10:07)
[2019-03-22] MEDS: MENTHOL/PHENOL 1 EACH UD MM PRN (10:10)
[2019-03-22] MEDS: QUEtiapine FUMARATE 100 MG TABLET (FP) PO SCH (21:25)
[2019-03-22] MEDS: THIAMINE HCL 100 MG TABLET (FP) PO SCH (21:25)
[2019-03-22] MEDS: MELATONIN 5 MG TABLETS PO PRN (21:25)
[2019-03-23] MEDS ORDERED: METHADONE HCL 10 MG TABLET ONE (04:24)
[2019-03-23] MEDS ORDERED: METHADONE HCL 40 MG DISPERSABLE TABLET ONE (04:25)
[2019-03-23] MEDS: METHADONE 120 MG, METHADONE 10 MG PO SCH (06:19)
[2019-03-23] MEDS: guaiFENesin 200 MG/10 ML 10 ML UNIT-DOSE CUPS PO PRN ×2 (08:41→21:17)
[2019-03-23] MEDS: NICOTINE 14 MG/24 HOURS TOPICAL PATCH TD SCH (10:21)
[2019-03-23] MEDS: LISINOPRIL 10 MG TABLET (FP) PO SCH (10:21)
[2019-03-23] MEDS: SERTRALINE HCL 50 MG TABLET (FP) PO SCH (10:21)
[2019-03-23] MEDS: PANTOPRAZOLE 40 MG TABLET PO SCH (10:21)
[2019-03-23] MEDS: PRENATAL VITAMINS W/ FOLIC ACID TABLET (FP) PO SCH (10:21)
[2019-03-23] MEDS: hydrOXYzine PAMOATE 25 MG CAPSULE (FP) PO PRN (10:22)
[2019-03-23] MEDS: MELATONIN 5 MG TABLETS PO PRN (21:17)
[2019-03-23] MEDS: QUEtiapine FUMARATE 100 MG TABLET (FP) PO SCH (21:17)
[2019-03-23] MEDS: MENTHOL/PHENOL 1 EACH UD MM PRN (21:17)
[2019-03-23] MEDS: THIAMINE HCL 100 MG TABLET (FP) PO SCH (21:17)
[2019-03-24] MEDS ORDERED: METHADONE HCL 40 MG DISPERSABLE TABLET ONE (04:00)
[2019-03-24] MEDS ORDERED: METHADONE HCL 10 MG TABLET ONE (04:00)
[2019-03-24] MEDS: METHADONE 120 MG, METHADONE 10 MG PO SCH (06:20)
[2019-03-24] MEDS: MENTHOL/PHENOL 1 EACH UD MM PRN ×3 (06:21→21:28)
[2019-03-24] MEDS: guaiFENesin 200 MG/10 ML 10 ML UNIT-DOSE CUPS PO PRN ×2 (06:21→17:20)
[2019-03-24] MEDS: SERTRALINE HCL 50 MG TABLET (FP) PO SCH (10:17)
[2019-03-24] MEDS: LISINOPRIL 10 MG TABLET (FP) PO SCH (10:17)
[2019-03-24] MEDS: PANTOPRAZOLE 40 MG TABLET PO SCH (10:17)
[2019-03-24] MEDS: PRENATAL VITAMINS W/ FOLIC ACID TABLET (FP) PO SCH (10:17)
[2019-03-24] MEDS: NICOTINE 14 MG/24 HOURS TOPICAL PATCH TD SCH (10:17)
[2019-03-24] MEDS: hydrOXYzine PAMOATE 25 MG CAPSULE (FP) PO PRN (10:18)
--- NOTE | 2019-03-24 13:16 | PN ---
[facility] Progress Note (SOAP) Subjective: Patient c/o sore throat, hoarse voice. PMHx of smoking, was seen in the ER for s /s of URI, tested for strep, which was negative. Objective: P/E; General: no apparent distress HEENTM: throat-clear, PERRLA, [id number], nares-clear NEck: supple Lymph: non-palpable Lungs: clear 03/24/19 13:14 Vital Signs Period Temp Pulse Resp BP Sys/Woods Pulse Ox Last 24 Hr 98.2 F 64-69 18-18 127-135/75-90 Assessment: Hoarse thoart, laryngitis 03/24/19 13:15 Plan: Continue with cepacol Take tylenol as needed for throat discomfort.
[2019-03-24] MEDS: MELATONIN 5 MG TABLETS PO PRN (21:27)
[2019-03-24] MEDS: THIAMINE HCL 100 MG TABLET (FP) PO SCH (21:27)
[2019-03-24] MEDS: QUEtiapine FUMARATE 100 MG TABLET (FP) PO SCH (21:27)
[2019-03-25] MEDS ORDERED: METHADONE HCL 10 MG TABLET ONE (05:48)
[2019-03-25] MEDS ORDERED: METHADONE HCL 40 MG DISPERSABLE TABLET ONE (05:48)
[2019-03-25] MEDS: METHADONE 120 MG, METHADONE 10 MG PO SCH (06:13)
[2019-03-25] MEDS: guaiFENesin 200 MG/10 ML 10 ML UNIT-DOSE CUPS PO PRN ×3 (06:14→21:21)
--- NOTE | 2019-03-25 09:17 | PN ---
[facility] Progress Note Note: Patient c/o sore throat, denies cough, fever, chills, nasal congestion and earaches. Was evaluated at ER 03/09/2019, strep test negative. Treated symptomatically with cepastat with no relief. Vital Signs Period Temp Pulse Resp BP Sys/Woods Pulse Ox Last 24 Hr 98.2 F 77 18-20 139/86 PE alert and oriented x 3 skin warm and dry +perrla,eoms intact bl pharynx pink, moist, no visible exudate car s1s2 resp cta bl ext full rom, no edema amb ad juliette A/P: pharyngitis although, strep test neg, due to ongoing symptoms with no relief from conservative measures, will treat with amoxicillin 500mg tid x 7 days encourage oral fluids tylenol prn continue to monitor clinically
[2019-03-25] MEDS: NICOTINE 14 MG/24 HOURS TOPICAL PATCH TD SCH (09:45)
[2019-03-25] MEDS: PANTOPRAZOLE 40 MG TABLET PO SCH (09:45)
[2019-03-25] MEDS: LISINOPRIL 10 MG TABLET (FP) PO SCH (09:46)
[2019-03-25] MEDS: PRENATAL VITAMINS W/ FOLIC ACID TABLET (FP) PO SCH (09:46)
[2019-03-25] MEDS: SERTRALINE HCL 50 MG TABLET (FP) PO SCH (09:46)
[2019-03-25] MEDS: hydrOXYzine PAMOATE 25 MG CAPSULE (FP) PO PRN (09:47)
[2019-03-25] MEDS: AMOXICILLIN 500 MG CAPSULE (FP) PO SCH ×2 (13:42→21:21)
[2019-03-25] MEDS: MELATONIN 5 MG TABLETS PO PRN (21:21)
[2019-03-25] MEDS: QUEtiapine FUMARATE 100 MG TABLET (FP) PO SCH (21:21)
[2019-03-25] MEDS: THIAMINE HCL 100 MG TABLET (FP) PO SCH (21:21)
[2019-03-26] MEDS ORDERED: METHADONE HCL 10 MG TABLET ONE (05:36)
[2019-03-26] MEDS ORDERED: METHADONE HCL 40 MG DISPERSABLE TABLET ONE (05:36)
[2019-03-26] MEDS: AMOXICILLIN 500 MG CAPSULE (FP) PO SCH ×3 (05:59→21:35)
[2019-03-26] MEDS: METHADONE 120 MG, METHADONE 10 MG PO SCH (05:59)
[2019-03-26] MEDS: NICOTINE 14 MG/24 HOURS TOPICAL PATCH TD SCH (09:52)
[2019-03-26] MEDS: PRENATAL VITAMINS W/ FOLIC ACID TABLET (FP) PO SCH (09:52)
[2019-03-26] MEDS: PANTOPRAZOLE 40 MG TABLET PO SCH (09:52)
[2019-03-26] MEDS: SERTRALINE HCL 50 MG TABLET (FP) PO SCH (09:53)
[2019-03-26] MEDS: LISINOPRIL 10 MG TABLET (FP) PO SCH (09:53)
[2019-03-26] MEDS: hydrOXYzine PAMOATE 25 MG CAPSULE (FP) PO PRN ×2 (09:54→21:36)
[2019-03-26] MEDS: QUEtiapine FUMARATE 100 MG TABLET (FP) PO SCH (21:35)
[2019-03-26] MEDS: THIAMINE HCL 100 MG TABLET (FP) PO SCH (21:35)
[2019-03-27] MEDS ORDERED: METHADONE HCL 10 MG TABLET ONE (05:37)
[2019-03-27] MEDS ORDERED: METHADONE HCL 40 MG DISPERSABLE TABLET ONE (05:37)
[2019-03-27] MEDS: AMOXICILLIN 500 MG CAPSULE (FP) PO SCH ×3 (06:10→21:15)
[2019-03-27] MEDS: METHADONE 120 MG, METHADONE 10 MG PO SCH (06:10)
[2019-03-27] MEDS: PANTOPRAZOLE 40 MG TABLET PO SCH (10:00)
[2019-03-27] MEDS: hydrOXYzine PAMOATE 25 MG CAPSULE (FP) PO PRN ×3 (10:00→21:16)
[2019-03-27] MEDS: NICOTINE 14 MG/24 HOURS TOPICAL PATCH TD SCH (10:00)
[2019-03-27] MEDS: SERTRALINE HCL 50 MG TABLET (FP) PO SCH (10:01)
[2019-03-27] MEDS: LISINOPRIL 10 MG TABLET (FP) PO SCH (10:01)
[2019-03-27] MEDS: PRENATAL VITAMINS W/ FOLIC ACID TABLET (FP) PO SCH (10:01)
[2019-03-27] MEDS: QUEtiapine FUMARATE 100 MG TABLET (FP) PO SCH (21:15)
[2019-03-27] MEDS: THIAMINE HCL 100 MG TABLET (FP) PO SCH (21:15)
[2019-03-27] MEDS: MELATONIN 5 MG TABLETS PO PRN (21:16)
[2019-03-28] MEDS ORDERED: METHADONE HCL 40 MG DISPERSABLE TABLET ONE (03:58)
[2019-03-28] MEDS ORDERED: METHADONE HCL 10 MG TABLET ONE (03:58)
[2019-03-28] MEDS: METHADONE 120 MG, METHADONE 10 MG PO SCH (06:22)
[2019-03-28] MEDS: AMOXICILLIN 500 MG CAPSULE (FP) PO SCH ×3 (06:22→21:40)
[2019-03-28] MEDS: SERTRALINE HCL 50 MG TABLET (FP) PO SCH (10:06)
[2019-03-28] MEDS: hydrOXYzine PAMOATE 25 MG CAPSULE (FP) PO PRN ×2 (10:06→14:11)
[2019-03-28] MEDS: PRENATAL VITAMINS W/ FOLIC ACID TABLET (FP) PO SCH (10:06)
[2019-03-28] MEDS: PANTOPRAZOLE 40 MG TABLET PO SCH (10:07)
[2019-03-28] MEDS: LISINOPRIL 10 MG TABLET (FP) PO SCH (10:07)
[2019-03-28] MEDS: NICOTINE 14 MG/24 HOURS TOPICAL PATCH TD SCH (10:07)
--- NOTE | 2019-03-28 10:07 | PN ---
[facility] Progress Note Note: Patient is scheduled for discharge tomorrow. Scripts for 30 days supply of medications(Zoloft 100 mg/day, Seroquel 100 mg/hs) will be electronically transmitted to [facility] at [address] [place] [id number]
[2019-03-28] MEDS: guaiFENesin 200 MG/10 ML 10 ML UNIT-DOSE CUPS PO PRN (10:08)
--- NOTE | 2019-03-28 10:36 | DS ---
[facility] Rehab Discharge Summary - [facility] Rehab Discharge Summary Admission Date: 03/08/19 Discharge Date: 03/29/19 - History Present History: Alcohol dependence, Cocaine dependence, Opioid dependence Pertinent Past History: Patient is a yo male with hx of nicotine, cocaine and alcohol dependence; this is one of multiple admissions. Patient reports was sober for 10 months and relapsed one month ago. MMTP at [facility] on methadone maintenance 130 mg, PMHX: Anemia, GERD, Hep C, HTN ( reports currently taking any meds at this time ) , depression bipolar, schizophrenia reports no psych followup . Past hx of suicide attempts four times. Denies hx of seizures, hx of ETOH blackouts with last episode three weeks ago. Denies SI /HI. - Discharge Physical Exam Vital Signs: Vital Signs Temperature 97.7 F 03/28/19 07:14 Pulse Rate 67 03/28/19 08:40 Respiratory Rate 18 03/28/19 08:40 Blood Pressure 115/80 03/28/19 08:40 O2 Sat by Pulse Oximetry (%) Pertinent Admission Physical Exam Findings: Physical General Appearance: No apparent distress HEENTM: Normocephalic, Normal Voice, JADA, Respiratory: Lungs Clear, Neck: supple, Cardiology: s1s2 Abdominal: +Bowel Sounds, Musculoskeletal: full range of Motion, Gait Steady, Pelvis Stable Neurological: YCNs II-XII NML intact, - Treatment Discharge Condition: Outpatient referral accepted (Patient will go to [address] [place] [address]. medically stable for discharge.) Hospital Course: Patient attended groups, had 1:1 with his counselor, was seen by the psychiatric service. He was treated for a sore throat while in rehab. - Medication Discharge Medications: Ambulatory Orders Sertraline HCl [Zoloft -] 50 mg PO DAILY #30 tablet 07/08/17 Methadone [Dolophine -] 130 mg PO DAILY 03/19/18 Quetiapine Fumarate [Seroquel -] 200 mg PO HS 04/20/18 Lisinopril 10 mg PO DAILY #30 tablet 03/28/19 Pantoprazole Sodium [Protonix] 40 mg PO DAILY #14 tablet. 03/28/19 Sertraline HCl [Zoloft] 100 mg PO DAILY #30 tablet 03/28/19 - Medication-Assisted Treatment (MAT) Medication-Assisted Treatment (MAT): Yes MAT Follow-up Referral: MMTP at [facility] - Discharge Instructions Diet, activity, other medical instructions: Diet: Activity: Other medical instructions: - Diagnosis (1) Alcohol use disorder Current Visit: Yes Status: Chronic (2) Cocaine dependence Current Visit: Yes Status: Chronic Qualifiers: Substance use status: uncomplicated Qualified Code(s): F14.20 - Cocaine dependence, uncomplicated (3) Opioid dependence on agonist therapy Current Visit: Yes Status: Chronic - Follow-up Referral Minutes to complete discharge: 20 - AMA Did Patient Leave Against Medical Advice: No Additional Comments: Prescriptions for medications transmitted to the pharmacy.
[2019-03-28] MEDS ORDERED: MELATONIN 5 MG TABLETS PO PRN (11:07)
--- NOTE | 2019-03-28 11:09 | PN ---
[facility] Progress Note Note: Patient reports sleeping poorly despite taking Seroquel 100 mg/hs and Melatonin 5 mg/hs. Will increase Melatonin dosage to 10 mg/hs
[2019-03-28] MEDS: QUEtiapine FUMARATE 100 MG TABLET (FP) PO SCH (21:40)
[2019-03-28] MEDS: THIAMINE HCL 100 MG TABLET (FP) PO SCH (21:40)
[2019-03-29] MEDS ORDERED: METHADONE HCL 10 MG TABLET ONE (05:29)
[2019-03-29] MEDS ORDERED: METHADONE HCL 40 MG DISPERSABLE TABLET ONE (05:30)
[2019-03-29] MEDS: AMOXICILLIN 500 MG CAPSULE (FP) PO SCH (05:56)
[2019-03-29] MEDS: METHADONE 120 MG, METHADONE 10 MG PO SCH (05:56)
[2019-03-29 06:55] VITALS: TEMP 97.9
[2019-03-29] MEDS: LISINOPRIL 10 MG TABLET (FP) PO SCH (09:06)
[2019-03-29] MEDS: hydrOXYzine PAMOATE 25 MG CAPSULE (FP) PO PRN (09:06)
[2019-03-29] MEDS: PANTOPRAZOLE 40 MG TABLET PO SCH (09:06)
[2019-03-29] MEDS: SERTRALINE HCL 50 MG TABLET (FP) PO SCH (09:06)
[2019-03-29] MEDS: PRENATAL VITAMINS W/ FOLIC ACID TABLET (FP) PO SCH (09:06)
[2019-03-29] MEDS: NICOTINE 14 MG/24 HOURS TOPICAL PATCH TD SCH (09:07)
[2019-03-29] MEDS: MENTHOL/PHENOL 1 EACH UD MM PRN (09:08)
[2019-03-29 09:16] VITALS: BP 128/85; PULSE 104
== END 2019-03-29 09:35 | disposition home or self-care (01) | DRG 772 ==
LOC: YASAS 11:03 → Y3W 11:04
PROVIDERS: ADMIT Neuromusculoskeletal Medicine & OMM; ATTEND Neuromusculoskeletal Medicine & OMM
PROC: HZ42ZZZ Group Counseling for Substance Abuse Treatment, Cognitive-Behavioral (ICD-10-PCS; principal; 2019-03-08)
DX: F11.20 Opioid dependence, uncomplicated (principal); F10.20 Alcohol dependence, uncomplicated; F14.20 Cocaine dependence, uncomplicated; F17.210 Nicotine dependence, cigarettes, uncomplicated; F25.9 Schizoaffective disorder, unspecified; I10 Essential (primary) hypertension; K21.9 Gastro-esophageal reflux disease without esophagitis; J02.9 Acute pharyngitis, unspecified; R49.0 Dysphonia; J04.0 Acute laryngitis; R21 Rash and other nonspecific skin eruption; L29.9 Pruritus, unspecified; E66.9 Obesity, unspecified; Z68.32 Body mass index [BMI] 32.0-32.9, adult
CPT/HCPCS: 87070

== ENCOUNTER 2019-03-09 17:40 | Emergency (ER) | payer OTHER ==
[2019-03-09 18:10] VITALS: BP 136/92; PULSE 66; TEMP 98.6; BMI 32.1
[2019-03-09] MEDS ORDERED: KETOROLAC TROMETHAMINE 60 MG/2 ML VIAL IM ONE (18:19)
[2019-03-09] MEDS ORDERED: KETOROLAC TROMETHAMINE 60 MG/2 ML VIAL ONE (18:26)
[2019-03-09] MEDS ORDERED: LIDOCAINE VISCOUS 2% ORAL/TOP 20 ML UNIT-DOSE CUP MM ONE (18:47)
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
[2019-03-09] MEDS ORDERED: LIDOCAINE VISCOUS 2% ORAL/TOP 20 ML UNIT-DOSE CUP ONE (19:08)
--- NOTE | 2019-03-09 19:26 | PDOC ---
Attending Attestation - Resident Resident Name: Dwayne Peña - ED Attending Attestation I have performed the following: I have examined & evaluated the patient, The case was reviewed & discussed with the resident, I agree w/resident's findings & plan - HPI HPI: 03/09/19 19:50 see resident hpi - Physicial Exam PE: 03/09/19 19:50 agree with resident exam - Medical Decision Making 03/09/19 19:50 53-year-old male with throat pain after eating extremely hot Post[place] Patient has some hoarseness but has no difficulty swallowing and tolerating secretions On reevaluation post Toradol he states he feels 100% better Airway is patent, uvula is midline, there is diffuse erythema without exudates or edema We will add a dose of dexamethasone and DC back to rehab
[2019-03-09] MEDS ORDERED: DEXAMETHASONE SOD PHOSPHATE 10 MG/1 ML VIAL IM ONE (19:47)
[2019-03-09] MEDS ORDERED: DEXAMETHASONE SOD PHOSPHATE 10 MG/1 ML VIAL ONE (19:58)
== END 2019-03-09 20:50 | disposition home or self-care (01) ==
LOC: JER 17:40
PROC: 3E023GC Introduction of Other Therapeutic Substance into Muscle, Percutaneous Approach (ICD-10-PCS; principal; 2019-03-09)
DX: J02.9 Acute pharyngitis, unspecified (principal); I10 Essential (primary) hypertension; E66.9 Obesity, unspecified; Z68.32 Body mass index [BMI] 32.0-32.9, adult
CPT/HCPCS: 87070; 87880; 99282-25; J1100

== ENCOUNTER 2020-05-18 10:27 | Inpatient (IN) | payer OTHER ==
[2020-05-18 11:19] VITALS: BMI 34.8
[2020-05-18] MEDS ORDERED: MAG HYDROX/AL HYDROX/SIMETH 30 ML UNIT-DOSE CUP PO PRN (11:50)
[2020-05-18] MEDS ORDERED: IBUPROFEN 400 MG TABLET (FP) PO PRN (11:50)
[2020-05-18] MEDS ORDERED: ONDANSETRON *ODT* 4 MG TABLET SL PRN (11:50)
[2020-05-18] MEDS ORDERED: MAGNESIUM HYDROX 2400MG/30ML ORAL SUSPENSION 30 ML CUP PO PRN (11:50)
[2020-05-18] MEDS ORDERED: MAGNESIUM CITRATE 300 ML BOTTLE PO PRN (11:50)
[2020-05-18] MEDS ORDERED: NICOTINE POLACRILEX 2 MG GUM BUC PRN (11:50)
[2020-05-18] MEDS ORDERED: chlordiazePOXIDE HCL 25 MG CAPSULE PO PRN (11:50)
[2020-05-18] MEDS ORDERED: ACETAMINOPHEN 325 MG TABLET (FP) PO PRN ×2 (11:50)
[2020-05-18] MEDS ORDERED: BISMUTH SUBSALICYLATE 524 MG/30 ML UD PO PRN (11:50)
[2020-05-18] MEDS: PANTOPRAZOLE 40 MG TABLET PO SCH (12:55)
[2020-05-18] MEDS: NICOTINE 21 MG/24 HOURS TOPICAL PATCH TD SCH (12:55)
[2020-05-18] MEDS: PRENATAL VITAMINS W/ FOLIC ACID TABLET (FP) PO SCH (12:55)
[2020-05-18] MEDS: chlordiazePOXIDE HCL 25 MG CAPSULE PO SCH ×3 (12:55→22:43)
[2020-05-18] MEDS ORDERED: hydrOXYzine PAMOATE 25 MG CAPSULE (FP) PO PRN (13:10)
[2020-05-18] MEDS ORDERED: hydrOXYzine PAMOATE 25 MG CAPSULE (FP) PO SCH (14:00)
[2020-05-18 15:33] LABS: POTASSIUM 4.1 mmol/L (3.5-5.1)
[2020-05-18 15:34] LABS: HEMATOCRIT 35.5 % (35.4-49); HEMOGLOBIN 11.4 GM/dL (11.7-16.9); MCHC 32.2 g/dl (32.0-35.9); MEAN CELL VOLUME 86.9 fl (80-96); PLATELET COUNT 243 K/MM3 (134-434); RBC 4.09 M/mm3 (4.00-5.60); WHITE BLOOD COUNT 7.3 K/mm3 (4.0-10.0)
[2020-05-18 15:37] LABS: ALBUMIN 3.3 g/dl (3.4-5.0); BLOOD UREA NITROGEN 28.4 mg/dL (7-18); CALCIUM 9.1 mg/dL (8.5-10.1)
[2020-05-18 15:42] LABS: BILIRUBIN,TOTAL 0.3 mg/dL (0.2-1); TOT PROT 7.8 g/dl (6.4-8.2)
[2020-05-18 16:31] LABS: HIV INTERPRETATION NEGATIVE (NEGATIVE)
[2020-05-18] MEDS: THIAMINE HCL 100 MG TABLET (FP) PO SCH (22:42)
[2020-05-18] MEDS: traZODone HCL 50 MG TABLET (FP) PO SCH (22:42)
[2020-05-18] MEDS: MELATONIN 5 MG TABLETS PO SCH (22:43)
[2020-05-19] MEDS ORDERED: METHADONE HCL 10 MG TABLET ONE (04:38)
[2020-05-19] MEDS ORDERED: METHADONE HCL 40 MG DISPERSABLE TABLET ONE (04:38)
[2020-05-19] MEDS: METHADONE 120 MG, METHADONE 10 MG PO SCH (05:42)
[2020-05-19] MEDS: chlordiazePOXIDE HCL 25 MG CAPSULE PO SCH ×4 (05:43→22:48)
[2020-05-19] MEDS ORDERED: METHADONE HCL 40 MG DISPERSABLE TABLET PO SCH (10:00)
[2020-05-19] MEDS: PRENATAL VITAMINS W/ FOLIC ACID TABLET (FP) PO SCH (10:31)
[2020-05-19] MEDS: NICOTINE 21 MG/24 HOURS TOPICAL PATCH TD SCH (10:31)
[2020-05-19] MEDS: PANTOPRAZOLE 40 MG TABLET PO SCH (10:31)
[2020-05-19] MEDS: LISINOPRIL 10 MG TABLET PO SCH (10:31)
[2020-05-19] MEDS: SERTRALINE HCL 50 MG TABLET (FP) PO SCH (10:32)
[2020-05-19] MEDS: ARIPiprazole 10 MG TABLET PO SCH (10:49)
[2020-05-19] MEDS: MELATONIN 5 MG TABLETS PO SCH (22:47)
[2020-05-19] MEDS: traZODone HCL 50 MG TABLET (FP) PO SCH (22:47)
[2020-05-19] MEDS: THIAMINE HCL 100 MG TABLET (FP) PO SCH (22:47)
[2020-05-20] MEDS ORDERED: METHADONE HCL 10 MG TABLET ONE (04:52)
[2020-05-20] MEDS ORDERED: METHADONE HCL 40 MG DISPERSABLE TABLET ONE (04:52)
[2020-05-20] MEDS: chlordiazePOXIDE HCL 25 MG CAPSULE PO SCH ×4 (06:08→22:10)
[2020-05-20] MEDS: METHADONE 120 MG, METHADONE 10 MG PO SCH (06:09)
[2020-05-20] MEDS: ARIPiprazole 10 MG TABLET PO SCH (10:58)
[2020-05-20] MEDS: PANTOPRAZOLE 40 MG TABLET PO SCH (10:58)
[2020-05-20] MEDS: NICOTINE 21 MG/24 HOURS TOPICAL PATCH TD SCH (10:58)
[2020-05-20] MEDS: PRENATAL VITAMINS W/ FOLIC ACID TABLET (FP) PO SCH (10:58)
[2020-05-20] MEDS: SERTRALINE HCL 50 MG TABLET (FP) PO SCH (10:59)
[2020-05-20] MEDS: LISINOPRIL 10 MG TABLET PO SCH (10:59)
[2020-05-20] MEDS: MELATONIN 5 MG TABLETS PO SCH (22:09)
[2020-05-20] MEDS: traZODone HCL 50 MG TABLET (FP) PO SCH (22:09)
[2020-05-20] MEDS: THIAMINE HCL 100 MG TABLET (FP) PO SCH (22:09)
[2020-05-21] MEDS ORDERED: chlordiazePOXIDE HCL 10 MG CAPSULE PO PRN
[2020-05-21] MEDS ORDERED: METHADONE HCL 10 MG TABLET ONE (04:45)
[2020-05-21] MEDS ORDERED: METHADONE HCL 40 MG DISPERSABLE TABLET ONE (04:46)
[2020-05-21] MEDS: METHADONE 120 MG, METHADONE 10 MG PO SCH (06:14)
[2020-05-21] MEDS: chlordiazePOXIDE HCL 10 MG CAPSULE PO SCH ×4 (06:15→22:31)
[2020-05-21] MEDS: LISINOPRIL 10 MG TABLET PO SCH (10:12)
[2020-05-21] MEDS: ARIPiprazole 10 MG TABLET PO SCH (10:12)
[2020-05-21] MEDS: PANTOPRAZOLE 40 MG TABLET PO SCH (10:12)
[2020-05-21] MEDS: NICOTINE 21 MG/24 HOURS TOPICAL PATCH TD SCH (10:12)
[2020-05-21] MEDS: SERTRALINE HCL 50 MG TABLET (FP) PO SCH (10:13)
[2020-05-21] MEDS: PRENATAL VITAMINS W/ FOLIC ACID TABLET (FP) PO SCH (10:28)
[2020-05-21] MEDS: METHOCARBAMOL 500 MG TABLET PO PRN (18:01)
[2020-05-21] MEDS: MELATONIN 5 MG TABLETS PO SCH (22:30)
[2020-05-21] MEDS: THIAMINE HCL 100 MG TABLET (FP) PO SCH (22:31)
[2020-05-21] MEDS: traZODone HCL 50 MG TABLET (FP) PO SCH (22:31)
[2020-05-22] MEDS ORDERED: METHADONE HCL 40 MG DISPERSABLE TABLET ONE (04:05)
[2020-05-22] MEDS ORDERED: METHADONE HCL 10 MG TABLET ONE (04:05)
[2020-05-22] MEDS: chlordiazePOXIDE HCL 10 MG CAPSULE PO SCH ×2 (06:10→17:24)
[2020-05-22] MEDS: METHADONE 120 MG, METHADONE 10 MG PO SCH (06:10)
[2020-05-22] MEDS: MENTHOL/PHENOL 1 EACH UD MM PRN (06:16)
[2020-05-22] MEDS: ARIPiprazole 10 MG TABLET PO SCH (10:19)
[2020-05-22] MEDS: LISINOPRIL 10 MG TABLET PO SCH (10:19)
[2020-05-22] MEDS: PRENATAL VITAMINS W/ FOLIC ACID TABLET (FP) PO SCH (10:19)
[2020-05-22] MEDS: NICOTINE 21 MG/24 HOURS TOPICAL PATCH TD SCH (10:19)
[2020-05-22] MEDS: PANTOPRAZOLE 40 MG TABLET PO SCH (10:19)
[2020-05-22] MEDS: SERTRALINE HCL 50 MG TABLET (FP) PO SCH (10:19)
[2020-05-22] MEDS: THIAMINE HCL 100 MG TABLET (FP) PO SCH (22:15)
[2020-05-22] MEDS: traZODone HCL 50 MG TABLET (FP) PO SCH (22:15)
[2020-05-22] MEDS: MELATONIN 5 MG TABLETS PO SCH (22:16)
[2020-05-22] MEDS: METHOCARBAMOL 500 MG TABLET PO PRN (22:17)
[2020-05-23] MEDS ORDERED: METHADONE HCL 10 MG TABLET ONE (04:08)
[2020-05-23] MEDS ORDERED: METHADONE HCL 40 MG DISPERSABLE TABLET ONE (04:09)
[2020-05-23] MEDS ORDERED: chlordiazePOXIDE HCL 10 MG CAPSULE PO ONE (05:00)
[2020-05-23] MEDS: METHADONE 120 MG, METHADONE 10 MG PO SCH (05:48)
[2020-05-23] MEDS: MENTHOL/PHENOL 1 EACH UD MM PRN (05:52)
[2020-05-23 08:46] VITALS: BP 116/85; PULSE 67; TEMP 96.8
[2020-05-23] MEDS: PRENATAL VITAMINS W/ FOLIC ACID TABLET (FP) PO SCH (09:20)
[2020-05-23] MEDS: SERTRALINE HCL 50 MG TABLET (FP) PO SCH (09:20)
[2020-05-23] MEDS: PANTOPRAZOLE 40 MG TABLET PO SCH (09:20)
[2020-05-23] MEDS: NICOTINE 21 MG/24 HOURS TOPICAL PATCH TD SCH (09:20)
[2020-05-23] MEDS: ARIPiprazole 10 MG TABLET PO SCH (09:20)
[2020-05-23] MEDS: LISINOPRIL 10 MG TABLET PO SCH (09:20)
== END 2020-05-23 09:32 | disposition home or self-care (01) | DRG 773 ==
LOC: YASAS 10:27 → Y3N 12:16
PROVIDERS: ADMIT Allergy & Immunology; ATTEND Allergy & Immunology
PROC: HZ2ZZZZ Detoxification Services for Substance Abuse Treatment (ICD-10-PCS; principal; 2020-05-18)
DX: F10.230 Alcohol dependence with withdrawal, uncomplicated (principal); F11.20 Opioid dependence, uncomplicated; F14.20 Cocaine dependence, uncomplicated; F17.210 Nicotine dependence, cigarettes, uncomplicated; F19.24 Other psychoactive substance dependence with psychoactive substance-induced mood disorder; F25.0 Schizoaffective disorder, bipolar type; I10 Essential (primary) hypertension; B18.2 Chronic viral hepatitis C; M25.562 Pain in left knee; R79.89 Other specified abnormal findings of blood chemistry; Z96.641 Presence of right artificial hip joint; R76.11 Nonspecific reaction to tuberculin skin test without active tuberculosis; Z99.89 Dependence on other enabling machines and devices
CPT/HCPCS: 36415; 71046-TC-FY; 80053; 85027; 86780; 87389; C9803; U0003; U0005

== ENCOUNTER 2020-05-22 11:08 | Emergency (ER) | payer OTHER ==
[2020-05-22 11:19] VITALS: BP 106/72; PULSE 66; TEMP 98.1; BMI 34.8
[2020-05-22] MEDS ORDERED: KETOROLAC TROMETHAMINE 60 MG/2 ML VIAL IM ONE (11:32)
[2020-05-22] MEDS ORDERED: ACETAMINOPHEN 500 MG TABLET (FP) PO ONE (11:33)
[2020-05-22] MEDS ORDERED: ACETAMINOPHEN 500 MG TABLET (FP) ONE (11:39)
[2020-05-22] MEDS ORDERED: KETOROLAC TROMETHAMINE 60 MG/2 ML VIAL ONE (11:39)
== END 2020-05-22 13:42 | disposition home or self-care (01) ==
LOC: JERFT 11:08
PROC: 3E023GC Introduction of Other Therapeutic Substance into Muscle, Percutaneous Approach (ICD-10-PCS; principal; 2020-05-22)
DX: M25.562 Pain in left knee (principal)
CPT/HCPCS: 73560-TC-LT-FY; 99284-25

== ENCOUNTER 2020-10-17 12:48 | Inpatient (IN) | payer OTHER ==
[2020-10-17 18:25] LABS: BASO % 0.5 % (0-2.0); EOS % 1.1 % (0-4.5); HEMATOCRIT 35.4 % (35.4-49); HEMOGLOBIN 11.7 GM/dL (11.7-16.9); LYMPH % 22.3 % (8-40); MCH 28.7 pg (25.7-33.7); MCHC 33.2 g/dl (32.0-35.9); MEAN CELL VOLUME 86.5 fl (80-96); MEAN PLT VOLUME 9.6 fl (7.5-11.1); MONO % 5.7 % (3.8-10.2); NEUT % 70.4 % (42.8-82.8); PLATELET COUNT 229 10^3/uL (134-434); RBC 4.09 M/mm3 (4.00-5.60); RDW 14.5 % (11.9-15.9); WHITE BLOOD COUNT 6.9 K/mm3 (4.0-10.0)
[2020-10-17] MEDS ORDERED: LORazepam 1 MG TABLET PO ONE (18:27)
[2020-10-17] MEDS ORDERED: LORazepam 1 MG TABLET ONE ×2 (18:39→22:28)
[2020-10-17 18:40] LABS: CHLORIDE 105 mmol/L (98-107); SODIUM 140 mmol/L (136-145)
[2020-10-17 18:42] LABS: ALBUMIN 3.5 g/dl (3.4-5.0); CALCIUM 8.8 mg/dL (8.5-10.1)
[2020-10-17 18:43] LABS: ANION GAP 8 MMOL/L (8-16); BLOOD UREA NITROGEN 20.1 mg/dL (7-18); CO2 28 mmol/L (21-32); GLUCOSE,RANDOM 73 mg/dL (74-106)
[2020-10-17 18:45] LABS: SGPT/ALT 52 U/L (13-61)
[2020-10-17 18:46] LABS: CREATININE 1.4 mg/dL (0.55-1.3); SGOT/AST 38 U/L (15-37)
[2020-10-17 18:47] LABS: BILIRUBIN,TOTAL 0.3 mg/dL (0.2-1)
[2020-10-17 18:48] LABS: ALK PHOS 105 U/L (45-117)
[2020-10-17 19:00] LABS: URINE BARBITURATES NEGATIVE (NEGATIVE); URINE BENZODIAZEPINES NEGATIVE (NEGATIVE)
[2020-10-17 19:01] LABS: OPIATES, URI NEGATIVE (NEGATIVE); PHENCYCLIDINE,URINE NEGATIVE (NEGATIVE)
[2020-10-17 19:03] LABS: COCAINE, UR POSITIVE (NEGATIVE); METHADONE, UR POSITIVE (NEGATIVE); URINE AMPHETAMINES NEGATIVE (NEGATIVE)
[2020-10-17] MEDS ORDERED: FOLIC ACID INJECTION - 1 MG, THIAMINE HCL 100 MG, MULTIVIT INJECTION ADULT 10 ML in SOD... IVPB ONE (19:25)
[2020-10-17] MEDS ORDERED: ACETAMINOPHEN 325 MG TABLET (FP) PO PRN (21:59)
[2020-10-17] MEDS ORDERED: HEPARIN NA (PORCINE) 5,000 UNITS/ML 1ML VIAL SQ ONE (21:59)
[2020-10-17] MEDS ORDERED: LORazepam 1 MG TABLET PO PRN (22:09)
[2020-10-17] MEDS ORDERED: SODIUM CHLORIDE 1,000 ML IV SCH (22:15)
[2020-10-17] MEDS ORDERED: HEPARIN NA (PORCINE) 5,000 UNITS/ML 1ML VIAL ONE (22:28)
[2020-10-17] MEDS: LORazepam 1 MG TABLET PO SCH (22:49)
[2020-10-18] MEDS: LORazepam 1 MG TABLET PO SCH ×5 (00:45→22:06)
[2020-10-18] MEDS ORDERED: LORazepam 1 MG TABLET ONE ×2 (05:55→11:18)
[2020-10-18 07:57] LABS: HEMATOCRIT 34.6 % (35.4-49); HEMOGLOBIN 11.4 GM/dL (11.7-16.9); MCH 28.8 pg (25.7-33.7); MCHC 32.9 g/dl (32.0-35.9); MEAN CELL VOLUME 87.6 fl (80-96); PLATELET COUNT 194 10^3/uL (134-434); RBC 3.95 M/mm3 (4.00-5.60); RDW 14.8 % (11.9-15.9); WHITE BLOOD COUNT 4.9 K/mm3 (4.0-10.0)
[2020-10-18 08:16] LABS: CALCIUM 8.2 mg/dL (8.5-10.1)
[2020-10-18 08:17] LABS: MAGNESIUM 2.5 mg/dL (1.8-2.4)
[2020-10-18 08:20] LABS: CREATININE 1.1 mg/dL (0.55-1.3); PHOSPHOROUS 2.8 mg/dL (2.5-4.9)
[2020-10-18 08:21] LABS: BILIRUBIN,TOTAL 0.3 mg/dL (0.2-1); TOT PROT 6.8 g/dl (6.4-8.2)
[2020-10-18] MEDS ORDERED: ACETAMINOPHEN 325 MG TABLET (FP) ONE (09:02)
[2020-10-18] MEDS ORDERED: THIAMINE HCL 100 MG TABLET (FP) ONE (09:03)
[2020-10-18] MEDS ORDERED: MULTIVITAMINS (DAILY MVI) TABLET (FP) ONE (09:03)
[2020-10-18] MEDS ORDERED: PANTOPRAZOLE 40 MG TABLET ONE (09:03)
[2020-10-18] MEDS ORDERED: FOLIC ACID 1 MG TABLET (FP) ONE (09:04)
[2020-10-18] MEDS: THIAMINE HCL 100 MG TABLET (FP) PO SCH (09:15)
[2020-10-18] MEDS: MULTIVITAMINS (DAILY MVI) TABLET (FP) PO SCH (09:15)
[2020-10-18] MEDS: FOLIC ACID 1 MG TABLET (FP) PO SCH (09:15)
[2020-10-18] MEDS: PANTOPRAZOLE 40 MG TABLET PO SCH (09:15)
[2020-10-18] MEDS: NICOTINE 7 MG/24 HOURS TOPICAL PATCH TD SCH (11:30)
[2020-10-18] MEDS: amLODIPine BESYLATE 5 MG TABLET (FP) PO SCH (16:51)
[2020-10-18] MEDS ORDERED: methaDONE HCL 10 MG TABLET (FOR DETOX USE ONLY) PO ONE (17:00)
[2020-10-18] MEDS ORDERED: methaDONE HCL 40 MG DISPERSABLE TABLET ONE (17:32)
[2020-10-18] MEDS ORDERED: methaDONE HCL 10 MG TABLET ONE (17:32)
[2020-10-18 18:42] VITALS: BMI 34.4
[2020-10-19] MEDS ORDERED: LORazepam 0.5 MG TABLET PO PRN
[2020-10-19] MEDS: LORazepam 0.5 MG TABLET PO SCH ×4 (05:43→22:16)
[2020-10-19] MEDS ORDERED: methaDONE HCL 40 MG DISPERSABLE TABLET ONE (09:07)
[2020-10-19] MEDS ORDERED: methaDONE HCL 10 MG TABLET ONE (09:08)
[2020-10-19] MEDS: amLODIPine BESYLATE 5 MG TABLET (FP) PO SCH (09:21)
[2020-10-19] MEDS: MULTIVITAMINS (DAILY MVI) TABLET (FP) PO SCH (09:21)
[2020-10-19] MEDS: FOLIC ACID 1 MG TABLET (FP) PO SCH (09:22)
[2020-10-19] MEDS: THIAMINE HCL 100 MG TABLET (FP) PO SCH (09:22)
[2020-10-19] MEDS: PANTOPRAZOLE 40 MG TABLET PO SCH (09:22)
[2020-10-19 09:35] LABS: BASO % 0.5 % (0-2.0); EOS % 2.5 % (0-4.5); HEMATOCRIT 36.2 % (35.4-49); LYMPH % 22.7 % (8-40); MCH 28.6 pg (25.7-33.7); MCHC 33.3 g/dl (32.0-35.9); MEAN CELL VOLUME 85.8 fl (80-96); MEAN PLT VOLUME 9.9 fl (7.5-11.1); MONO % 5.8 % (3.8-10.2); NEUT % 68.5 % (42.8-82.8); PLATELET COUNT 214 10^3/uL (134-434); RBC 4.22 M/mm3 (4.00-5.60); RDW 14.7 % (11.9-15.9); WHITE BLOOD COUNT 6.8 K/mm3 (4.0-10.0)
[2020-10-19] MEDS ORDERED: PT OWN MED DRAWER 7, Y5N ONE (10:09)
[2020-10-19 10:11] LABS: PHOSPHOROUS 2.7 mg/dL (2.5-4.9)
[2020-10-19 10:12] LABS: ALBUMIN 3.3 g/dl (3.4-5.0); BILIRUBIN,TOTAL 0.3 mg/dL (0.2-1); TOT PROT 7.7 g/dl (6.4-8.2)
[2020-10-19 10:14] LABS: BLOOD UREA NITROGEN 20.3 mg/dL (7-18)
[2020-10-19 10:15] LABS: CALCIUM 8.8 mg/dL (8.5-10.1)
[2020-10-19 10:16] LABS: MAGNESIUM 2.3 mg/dL (1.8-2.4)
[2020-10-19] MEDS: NICOTINE 7 MG/24 HOURS TOPICAL PATCH TD SCH (11:11)
[2020-10-19] MEDS ORDERED: SODIUM CHLORIDE NASAL SPRAY 44 ML BOTTLE NS ONE (20:27)
[2020-10-19 20:35] LABS: URINE APPEARANCE CLEAR; URINE BILIRUBIN NEGATIVE (NEGATIVE); URINE COLOR YELLOW; URINE GLUCOSE (UA) NEGATIVE (NEGATIVE); URINE KETONE NEGATIVE (NEGATIVE); URINE LEUK ESTERASE NEGATIVE (NEGATIVE); URINE NITRITE NEGATIVE (NEGATIVE); URINE PROTEIN NEGATIVE (NEGATIVE); URINE UROBILINOGEN 0.2 mg/dL (0.2-1.0)
[2020-10-20] MEDS ORDERED: LORazepam 0.5 MG TABLET PO ONE (05:00)
[2020-10-20] MEDS ORDERED: methaDONE HCL 40 MG DISPERSABLE TABLET ONE (05:09)
[2020-10-20] MEDS ORDERED: methaDONE HCL 10 MG TABLET ONE (05:10)
[2020-10-20 08:11] LABS: BASO % 0.6 % (0-2.0); EOS % 1.9 % (0-4.5); HEMATOCRIT 35.8 % (35.4-49); HEMOGLOBIN 11.9 GM/dL (11.7-16.9); MCH 28.9 pg (25.7-33.7); MCHC 33.2 g/dl (32.0-35.9); MEAN PLT VOLUME 9.4 fl (7.5-11.1); MONO % 8.7 % (3.8-10.2); NEUT % 62.8 % (42.8-82.8); PLATELET COUNT 208 10^3/uL (134-434); RBC 4.12 M/mm3 (4.00-5.60); RDW 14.5 % (11.9-15.9)
[2020-10-20 08:32] LABS: ALBUMIN 3.2 g/dl (3.4-5.0); BLOOD UREA NITROGEN 18.6 mg/dL (7-18); CALCIUM 8.8 mg/dL (8.5-10.1)
[2020-10-20 08:36] LABS: BILIRUBIN,TOTAL 0.6 mg/dL (0.2-1); CREATININE 1.1 mg/dL (0.55-1.3)
[2020-10-20 08:38] LABS: TOT PROT 7.5 g/dl (6.4-8.2)
[2020-10-20] MEDS ORDERED: PT OWN MED DRAWER 7, Y5N ONE (09:11)
[2020-10-20] MEDS: PANTOPRAZOLE 40 MG TABLET PO SCH (09:52)
[2020-10-20] MEDS: THIAMINE HCL 100 MG TABLET (FP) PO SCH (09:53)
[2020-10-20] MEDS: NICOTINE 7 MG/24 HOURS TOPICAL PATCH TD SCH (09:53)
[2020-10-20] MEDS: MULTIVITAMINS (DAILY MVI) TABLET (FP) PO SCH (09:53)
[2020-10-20] MEDS: amLODIPine BESYLATE 5 MG TABLET (FP) PO SCH (09:53)
[2020-10-20] MEDS: FOLIC ACID 1 MG TABLET (FP) PO SCH (09:53)
[2020-10-20] MEDS: LORazepam 0.5 MG TABLET PO PRN (22:05)
[2020-10-21] MEDS ORDERED: methaDONE HCL 40 MG DISPERSABLE TABLET ONE (05:06)
[2020-10-21] MEDS ORDERED: methaDONE HCL 10 MG TABLET ONE (05:06)
[2020-10-21] MEDS: amLODIPine BESYLATE 5 MG TABLET (FP) PO SCH (10:01)
[2020-10-21] MEDS: MULTIVITAMINS (DAILY MVI) TABLET (FP) PO SCH (10:01)
[2020-10-21] MEDS: NICOTINE 7 MG/24 HOURS TOPICAL PATCH TD SCH (10:01)
[2020-10-21] MEDS: PANTOPRAZOLE 40 MG TABLET PO SCH (10:01)
[2020-10-21] MEDS: FOLIC ACID 1 MG TABLET (FP) PO SCH (10:01)
[2020-10-21] MEDS: THIAMINE HCL 100 MG TABLET (FP) PO SCH (10:01)
[2020-10-21] MEDS: LORazepam 0.5 MG TABLET PO PRN (10:10)
[2020-10-21 10:16] LABS: BLOOD UREA NITROGEN 20.9 mg/dL (7-18); CALCIUM 8.6 mg/dL (8.5-10.1)
[2020-10-21 10:32] LABS: CREATININE 1.2 mg/dL (0.55-1.3)
[2020-10-22] MEDS ORDERED: methaDONE HCL 40 MG DISPERSABLE TABLET ONE (05:37)
[2020-10-22] MEDS ORDERED: methaDONE HCL 10 MG TABLET ONE (05:37)
[2020-10-22 09:35] LABS: HEMATOCRIT 38.3 % (35.4-49); HEMOGLOBIN 12.9 GM/dL (11.7-16.9); MCH 28.7 pg (25.7-33.7); MCHC 33.6 g/dl (32.0-35.9); MEAN CELL VOLUME 85.3 fl (80-96); MEAN PLT VOLUME 9.7 fl (7.5-11.1); PLATELET COUNT 225 10^3/uL (134-434); RBC 4.49 M/mm3 (4.00-5.60); RDW 14.6 % (11.9-15.9); WHITE BLOOD COUNT 6.8 K/mm3 (4.0-10.0)
[2020-10-22 10:07] LABS: ALBUMIN 3.3 g/dl (3.4-5.0); BLOOD UREA NITROGEN 23.1 mg/dL (7-18); MAGNESIUM 2.4 mg/dL (1.8-2.4)
[2020-10-22 10:09] LABS: BILIRUBIN,TOTAL 0.4 mg/dL (0.2-1)
[2020-10-22 10:10] LABS: CREATININE 1.1 mg/dL (0.55-1.3)
[2020-10-22 10:12] LABS: TOT PROT 7.9 g/dl (6.4-8.2)
[2020-10-22] MEDS: THIAMINE HCL 100 MG TABLET (FP) PO SCH (10:13)
[2020-10-22] MEDS: FOLIC ACID 1 MG TABLET (FP) PO SCH (10:13)
[2020-10-22] MEDS: MULTIVITAMINS (DAILY MVI) TABLET (FP) PO SCH (10:13)
[2020-10-22] MEDS: NICOTINE 21 MG/24 HOURS TOPICAL PATCH TD SCH (10:13)
[2020-10-22] MEDS: PANTOPRAZOLE 40 MG TABLET PO SCH (10:13)
[2020-10-22] MEDS: amLODIPine BESYLATE 5 MG TABLET (FP) PO SCH (10:13)
[2020-10-22] MEDS: LORazepam 0.5 MG TABLET PO PRN (10:47)
[2020-10-23] MEDS ORDERED: methaDONE HCL 40 MG DISPERSABLE TABLET ONE (05:01)
[2020-10-23] MEDS ORDERED: methaDONE HCL 10 MG TABLET ONE (05:02)
[2020-10-23] MEDS: THIAMINE HCL 100 MG TABLET (FP) PO SCH (09:20)
[2020-10-23] MEDS: FOLIC ACID 1 MG TABLET (FP) PO SCH (09:20)
[2020-10-23] MEDS: MULTIVITAMINS (DAILY MVI) TABLET (FP) PO SCH (09:20)
[2020-10-23] MEDS: amLODIPine BESYLATE 5 MG TABLET (FP) PO SCH (09:20)
[2020-10-23] MEDS: NICOTINE 21 MG/24 HOURS TOPICAL PATCH TD SCH (09:20)
[2020-10-23] MEDS: PANTOPRAZOLE 40 MG TABLET PO SCH (09:20)
[2020-10-23] MEDS: LORazepam 0.5 MG TABLET PO PRN (10:54)
[2020-10-23 15:35] VITALS: BP 136/87; PULSE 63; TEMP 98.1
== END 2020-10-23 15:45 | disposition other institution (70) | DRG 773 ==
LOC: SUATTDRO 12:48 → JER 12:48 → JERBED 19:52 → J5S 10-18 13:13
PROVIDERS: ADMIT Internal Medicine; ATTEND Internal Medicine
PROC: HZ2ZZZZ Detoxification Services for Substance Abuse Treatment (ICD-10-PCS; principal; 2020-10-17)
DX: F10.239 Alcohol dependence with withdrawal, unspecified (principal); F11.20 Opioid dependence, uncomplicated; B18.2 Chronic viral hepatitis C; I10 Essential (primary) hypertension; F25.9 Schizoaffective disorder, unspecified; N17.9 Acute kidney failure, unspecified; R00.1 Bradycardia, unspecified; F14.10 Cocaine abuse, uncomplicated; N28.1 Cyst of kidney, acquired; E86.0 Dehydration; F41.9 Anxiety disorder, unspecified; F17.210 Nicotine dependence, cigarettes, uncomplicated; K21.9 Gastro-esophageal reflux disease without esophagitis; F19.10 Other psychoactive substance abuse, uncomplicated; E66.9 Obesity, unspecified; Z68.34 Body mass index [BMI] 34.0-34.9, adult; Z96.641 Presence of right artificial hip joint
CPT/HCPCS: 36415; 76775-TC; 80048; 80053; 80307; 81003; 82550; 82962; 83735; 84100; 85025; 85027; 93005; 93010; 99285-25; C9803; J1644; U0003; U0005

== ENCOUNTER 2020-10-23 16:34 | Inpatient (IN) | payer OTHER ==
[2020-10-23] MEDS ORDERED: LOPERAMIDE HCL 2 MG CAPSULE PO PRN (20:39)
[2020-10-23] MEDS ORDERED: P-EPHED 60MG/TRIPROLIDI 2.5MG TABLET PO PRN (20:39)
[2020-10-23] MEDS ORDERED: MAGNESIUM CITRATE 300 ML BOTTLE PO PRN (20:39)
[2020-10-23] MEDS ORDERED: NALOXONE (NARCAN) HCL 4 MG/0.1 ML SPRAY NS PRN (20:39)
[2020-10-23] MEDS ORDERED: hydrOXYzine PAMOATE 25 MG CAPSULE (FP) PO PRN (20:39)
[2020-10-23] MEDS ORDERED: MAG HYDROX/AL HYDROX/SIMETH 30 ML UNIT-DOSE CUP PO PRN (20:39)
[2020-10-23] MEDS ORDERED: MAGNESIUM HYDROX 2400MG/30ML ORAL SUSPENSION 30 ML CUP PO PRN (20:39)
[2020-10-23] MEDS ORDERED: NALOXONE HCL 0.4 MG/ML VIAL IM PRN (20:39)
[2020-10-23] MEDS ORDERED: guaiFENesin 200 MG/10 ML 10 ML UNIT-DOSE CUPS PO PRN (20:39)
[2020-10-23] MEDS ORDERED: ACETAMINOPHEN 325 MG TABLET (FP) PO PRN (20:39)
[2020-10-23 21:10] VITALS: BMI 34.5
[2020-10-24] MEDS: THIAMINE HCL 100 MG TABLET (FP) PO SCH ×2 (01:10→21:37)
[2020-10-24] MEDS: MELATONIN 5 MG TABLETS PO SCH ×2 (01:10→21:36)
[2020-10-24] MEDS ORDERED: methaDONE HCL 10 MG TABLET PO SCH (06:00)
[2020-10-24] MEDS ORDERED: methaDONE HCL 40 MG DISPERSABLE TABLET ONE (06:33)
[2020-10-24] MEDS ORDERED: methaDONE HCL 10 MG TABLET ONE (06:33)
[2020-10-24] MEDS: NICOTINE 21 MG/24 HOURS TOPICAL PATCH TD SCH (09:49)
[2020-10-24] MEDS: IBUPROFEN 400 MG TABLET (FP) PO PRN (09:49)
[2020-10-24] MEDS: PANTOPRAZOLE 40 MG TABLET PO SCH (09:49)
[2020-10-24] MEDS: PRENATAL VITAMINS W/ FOLIC ACID TABLET (FP) PO SCH (09:50)
[2020-10-24] MEDS ORDERED: amLODIPine BESYLATE 5 MG TABLET (FP) PO SCH (10:00)
[2020-10-24] MEDS: ERYTHROMYCIN 0.5% OPHTHALMIC OINTMENT 3.5 GM TUBE OD SCH (10:29)
[2020-10-24] MEDS: ARIPiprazole 10 MG TABLET PO SCH (10:30)
[2020-10-24 10:55] LABS: HEMATOCRIT 37.7 % (35.4-49); HEMOGLOBIN 12.5 GM/dL (11.7-16.9); MCH 28.9 pg (25.7-33.7); MCHC 33.3 g/dl (32.0-35.9); MEAN PLT VOLUME 9.9 fl (7.5-11.1); PLATELET COUNT 215 10^3/uL (134-434); RBC 4.34 M/mm3 (4.00-5.60); RDW 14.5 % (11.9-15.9); URINE APPEARANCE CLEAR; URINE BILIRUBIN NEGATIVE (NEGATIVE); URINE COLOR YELLOW; URINE GLUCOSE (UA) NEGATIVE (NEGATIVE); URINE KETONE NEGATIVE (NEGATIVE); URINE LEUK ESTERASE NEGATIVE (NEGATIVE); URINE NITRITE NEGATIVE (NEGATIVE); URINE PROTEIN NEGATIVE (NEGATIVE); WHITE BLOOD COUNT 6.4 K/mm3 (4.0-10.0)
[2020-10-24 12:32] LABS: CALCIUM 8.8 mg/dL (8.5-10.1)
[2020-10-24 12:33] LABS: BLOOD UREA NITROGEN 24.8 mg/dL (7-18)
[2020-10-24 12:36] LABS: CREATININE 1.2 mg/dL (0.55-1.3)
[2020-10-24 12:37] LABS: BILIRUBIN,TOTAL 0.3 mg/dL (0.2-1); TOT PROT 7.4 g/dl (6.4-8.2)
[2020-10-24 12:54] LABS: ALBUMIN 3.1 g/dl (3.4-5.0)
[2020-10-24] MEDS ORDERED: traZODone HCL 50 MG TABLET (FP) PO SCH (22:00)
[2020-10-25] MEDS ORDERED: methaDONE HCL 10 MG TABLET ONE (02:57)
[2020-10-25] MEDS ORDERED: methaDONE HCL 40 MG DISPERSABLE TABLET ONE (02:57)
[2020-10-25] MEDS: ARIPiprazole 10 MG TABLET PO SCH (10:25)
[2020-10-25] MEDS: NICOTINE 21 MG/24 HOURS TOPICAL PATCH TD SCH (10:25)
[2020-10-25] MEDS: amLODIPine BESYLATE 5 MG TABLET (FP) PO SCH (10:25)
[2020-10-25] MEDS: PANTOPRAZOLE 40 MG TABLET PO SCH (10:25)
[2020-10-25] MEDS: SERTRALINE HCL 50 MG TABLET (FP) PO SCH (10:25)
[2020-10-25] MEDS: ERYTHROMYCIN 0.5% OPHTHALMIC OINTMENT 3.5 GM TUBE OD SCH (10:25)
[2020-10-25] MEDS: IBUPROFEN 400 MG TABLET (FP) PO PRN (10:26)
[2020-10-25] MEDS: PRENATAL VITAMINS W/ FOLIC ACID TABLET (FP) PO SCH (10:29)
[2020-10-25] MEDS: THIAMINE HCL 100 MG TABLET (FP) PO SCH (21:42)
[2020-10-25] MEDS: SUVOREXANT 10 MG TABLET PO PRN (21:43)
[2020-10-26] MEDS ORDERED: methaDONE HCL 40 MG DISPERSABLE TABLET ONE (03:16)
[2020-10-26] MEDS ORDERED: methaDONE HCL 10 MG TABLET ONE (03:17)
[2020-10-26] MEDS: SERTRALINE HCL 50 MG TABLET (FP) PO SCH (10:04)
[2020-10-26] MEDS: IBUPROFEN 400 MG TABLET (FP) PO PRN (10:04)
[2020-10-26] MEDS: ARIPiprazole 10 MG TABLET PO SCH (10:04)
[2020-10-26] MEDS: amLODIPine BESYLATE 5 MG TABLET (FP) PO SCH (10:04)
[2020-10-26] MEDS: PANTOPRAZOLE 40 MG TABLET PO SCH (10:05)
[2020-10-26] MEDS: PRENATAL VITAMINS W/ FOLIC ACID TABLET (FP) PO SCH (10:05)
[2020-10-26] MEDS: ERYTHROMYCIN 0.5% OPHTHALMIC OINTMENT 3.5 GM TUBE OD SCH (10:06)
[2020-10-26] MEDS: NICOTINE 21 MG/24 HOURS TOPICAL PATCH TD SCH (10:06)
[2020-10-26] MEDS: THIAMINE HCL 100 MG TABLET (FP) PO SCH (21:11)
[2020-10-26] MEDS: SUVOREXANT 10 MG TABLET PO PRN (21:11)
[2020-10-27] MEDS ORDERED: methaDONE HCL 10 MG TABLET ONE (03:12)
[2020-10-27] MEDS ORDERED: methaDONE HCL 40 MG DISPERSABLE TABLET ONE (03:12)
[2020-10-27] MEDS: NICOTINE 21 MG/24 HOURS TOPICAL PATCH TD SCH (09:48)
[2020-10-27] MEDS: amLODIPine BESYLATE 5 MG TABLET (FP) PO SCH (09:49)
[2020-10-27] MEDS: PRENATAL VITAMINS W/ FOLIC ACID TABLET (FP) PO SCH (09:49)
[2020-10-27] MEDS: SERTRALINE HCL 50 MG TABLET (FP) PO SCH (09:49)
[2020-10-27] MEDS: ARIPiprazole 10 MG TABLET PO SCH (09:49)
[2020-10-27] MEDS: ERYTHROMYCIN 0.5% OPHTHALMIC OINTMENT 3.5 GM TUBE OD SCH (09:49)
[2020-10-27] MEDS: PANTOPRAZOLE 40 MG TABLET PO SCH (09:49)
[2020-10-27] MEDS: SUVOREXANT 10 MG TABLET PO PRN (21:33)
[2020-10-27] MEDS: THIAMINE HCL 100 MG TABLET (FP) PO SCH (21:33)
[2020-10-28] MEDS ORDERED: methaDONE HCL 10 MG TABLET ONE (03:07)
[2020-10-28] MEDS ORDERED: methaDONE HCL 40 MG DISPERSABLE TABLET ONE (03:07)
[2020-10-28] MEDS: SERTRALINE HCL 50 MG TABLET (FP) PO SCH (09:55)
[2020-10-28] MEDS: amLODIPine BESYLATE 5 MG TABLET (FP) PO SCH (09:55)
[2020-10-28] MEDS: PANTOPRAZOLE 40 MG TABLET PO SCH (09:55)
[2020-10-28] MEDS: ARIPiprazole 10 MG TABLET PO SCH (09:55)
[2020-10-28] MEDS: PRENATAL VITAMINS W/ FOLIC ACID TABLET (FP) PO SCH (09:55)
[2020-10-28] MEDS: NICOTINE 21 MG/24 HOURS TOPICAL PATCH TD SCH (09:55)
[2020-10-28] MEDS: ERYTHROMYCIN 0.5% OPHTHALMIC OINTMENT 3.5 GM TUBE OD SCH (09:56)
[2020-10-28] MEDS: SUVOREXANT 10 MG TABLET PO PRN (21:04)
[2020-10-28] MEDS: THIAMINE HCL 100 MG TABLET (FP) PO SCH (21:04)
[2020-10-29] MEDS ORDERED: methaDONE HCL 40 MG DISPERSABLE TABLET ONE (03:08)
[2020-10-29] MEDS ORDERED: methaDONE HCL 10 MG TABLET ONE (03:08)
[2020-10-29] MEDS: PANTOPRAZOLE 40 MG TABLET PO SCH (10:15)
[2020-10-29] MEDS: ARIPiprazole 10 MG TABLET PO SCH (10:15)
[2020-10-29] MEDS: PRENATAL VITAMINS W/ FOLIC ACID TABLET (FP) PO SCH (10:15)
[2020-10-29] MEDS: SERTRALINE HCL 50 MG TABLET (FP) PO SCH (10:15)
[2020-10-29] MEDS: amLODIPine BESYLATE 5 MG TABLET (FP) PO SCH (10:15)
[2020-10-29] MEDS: ERYTHROMYCIN 0.5% OPHTHALMIC OINTMENT 3.5 GM TUBE OD SCH (10:16)
[2020-10-29] MEDS: NICOTINE 21 MG/24 HOURS TOPICAL PATCH TD SCH (10:17)
[2020-10-29] MEDS: NICOTINE 10 MG CARTRIDGE (INHALER) IH PRN (10:20)
[2020-10-29] MEDS ORDERED: COLLOIDAL OATMEAL 1 BAR EACH TP PRN (12:38)
[2020-10-29] MEDS: CLINDAMYCIN PHOSPHATE 1% TOPICAL GEL 30 GM TUBE TP SCH ×2 (14:53→21:35)
[2020-10-29] MEDS: SUVOREXANT 10 MG TABLET PO PRN (21:35)
[2020-10-29] MEDS: THIAMINE HCL 100 MG TABLET (FP) PO SCH (21:35)
[2020-10-30] MEDS ORDERED: methaDONE HCL 10 MG TABLET ONE (03:20)
[2020-10-30] MEDS ORDERED: methaDONE HCL 40 MG DISPERSABLE TABLET ONE (03:20)
[2020-10-30] MEDS: amLODIPine BESYLATE 5 MG TABLET (FP) PO SCH (09:28)
[2020-10-30] MEDS: NICOTINE 21 MG/24 HOURS TOPICAL PATCH TD SCH (09:28)
[2020-10-30] MEDS: SERTRALINE HCL 50 MG TABLET (FP) PO SCH (09:28)
[2020-10-30] MEDS: PRENATAL VITAMINS W/ FOLIC ACID TABLET (FP) PO SCH (09:28)
[2020-10-30] MEDS: ARIPiprazole 10 MG TABLET PO SCH (09:28)
[2020-10-30] MEDS: PANTOPRAZOLE 40 MG TABLET PO SCH (09:28)
[2020-10-30] MEDS: NICOTINE 10 MG CARTRIDGE (INHALER) IH PRN (09:31)
[2020-10-30] MEDS: CLINDAMYCIN PHOSPHATE 1% TOPICAL GEL 30 GM TUBE TP SCH ×2 (09:31→21:09)
[2020-10-30] MEDS: ERYTHROMYCIN 0.5% OPHTHALMIC OINTMENT 3.5 GM TUBE OD SCH (09:31)
[2020-10-30] MEDS: SUVOREXANT 10 MG TABLET PO PRN (21:09)
[2020-10-30] MEDS: THIAMINE HCL 100 MG TABLET (FP) PO SCH (21:09)
[2020-10-31] MEDS ORDERED: methaDONE HCL 40 MG DISPERSABLE TABLET ONE (06:06)
[2020-10-31] MEDS ORDERED: methaDONE HCL 10 MG TABLET ONE (06:06)
[2020-10-31] MEDS: PRENATAL VITAMINS W/ FOLIC ACID TABLET (FP) PO SCH (10:15)
[2020-10-31] MEDS: CLINDAMYCIN PHOSPHATE 1% TOPICAL GEL 30 GM TUBE TP SCH ×2 (10:15→21:13)
[2020-10-31] MEDS: PANTOPRAZOLE 40 MG TABLET PO SCH (10:15)
[2020-10-31] MEDS: amLODIPine BESYLATE 5 MG TABLET (FP) PO SCH (10:15)
[2020-10-31] MEDS: ARIPiprazole 10 MG TABLET PO SCH (10:15)
[2020-10-31] MEDS: SERTRALINE HCL 50 MG TABLET (FP) PO SCH (10:15)
[2020-10-31] MEDS: ERYTHROMYCIN 0.5% OPHTHALMIC OINTMENT 3.5 GM TUBE OD SCH (10:15)
[2020-10-31] MEDS: NICOTINE 21 MG/24 HOURS TOPICAL PATCH TD SCH (10:16)
[2020-10-31] MEDS: THIAMINE HCL 100 MG TABLET (FP) PO SCH (21:12)
[2020-10-31] MEDS: SUVOREXANT 10 MG TABLET PO PRN (21:12)
[2020-11-01] MEDS ORDERED: methaDONE HCL 10 MG TABLET ONE (03:02)
[2020-11-01] MEDS ORDERED: methaDONE HCL 40 MG DISPERSABLE TABLET ONE (03:02)
[2020-11-01] MEDS: PRENATAL VITAMINS W/ FOLIC ACID TABLET (FP) PO SCH (10:15)
[2020-11-01] MEDS: PANTOPRAZOLE 40 MG TABLET PO SCH (10:15)
[2020-11-01] MEDS: amLODIPine BESYLATE 5 MG TABLET (FP) PO SCH (10:15)
[2020-11-01] MEDS: SERTRALINE HCL 50 MG TABLET (FP) PO SCH (10:15)
[2020-11-01] MEDS: ERYTHROMYCIN 0.5% OPHTHALMIC OINTMENT 3.5 GM TUBE OD SCH (10:16)
[2020-11-01] MEDS: NICOTINE 21 MG/24 HOURS TOPICAL PATCH TD SCH (10:16)
[2020-11-01] MEDS: ARIPiprazole 10 MG TABLET PO SCH (10:16)
[2020-11-01] MEDS: CLINDAMYCIN PHOSPHATE 1% TOPICAL GEL 30 GM TUBE TP SCH ×2 (10:16→21:03)
[2020-11-01] MEDS: THIAMINE HCL 100 MG TABLET (FP) PO SCH (21:02)
[2020-11-01] MEDS: SUVOREXANT 10 MG TABLET PO PRN (21:03)
[2020-11-02] MEDS ORDERED: methaDONE HCL 40 MG DISPERSABLE TABLET ONE (03:03)
[2020-11-02] MEDS ORDERED: methaDONE HCL 10 MG TABLET ONE (03:03)
[2020-11-02] MEDS: PANTOPRAZOLE 40 MG TABLET PO SCH (09:55)
[2020-11-02] MEDS: ARIPiprazole 10 MG TABLET PO SCH (09:55)
[2020-11-02] MEDS: ERYTHROMYCIN 0.5% OPHTHALMIC OINTMENT 3.5 GM TUBE OD SCH (09:55)
[2020-11-02] MEDS: SERTRALINE HCL 50 MG TABLET (FP) PO SCH (09:55)
[2020-11-02] MEDS: NICOTINE 21 MG/24 HOURS TOPICAL PATCH TD SCH (09:55)
[2020-11-02] MEDS: amLODIPine BESYLATE 5 MG TABLET (FP) PO SCH (09:55)
[2020-11-02] MEDS: CLINDAMYCIN PHOSPHATE 1% TOPICAL GEL 30 GM TUBE TP SCH ×2 (09:55→21:06)
[2020-11-02] MEDS: PRENATAL VITAMINS W/ FOLIC ACID TABLET (FP) PO SCH (09:55)
[2020-11-02] MEDS: SUVOREXANT 10 MG TABLET PO PRN (21:05)
[2020-11-02] MEDS: THIAMINE HCL 100 MG TABLET (FP) PO SCH (21:05)
[2020-11-03] MEDS ORDERED: methaDONE HCL 40 MG DISPERSABLE TABLET ONE (03:19)
[2020-11-03] MEDS ORDERED: methaDONE HCL 10 MG TABLET ONE (03:19)
[2020-11-03] MEDS: SERTRALINE HCL 50 MG TABLET (FP) PO SCH (09:28)
[2020-11-03] MEDS: NICOTINE 21 MG/24 HOURS TOPICAL PATCH TD SCH (09:28)
[2020-11-03] MEDS: amLODIPine BESYLATE 5 MG TABLET (FP) PO SCH (09:28)
[2020-11-03] MEDS: PANTOPRAZOLE 40 MG TABLET PO SCH (09:28)
[2020-11-03] MEDS: ARIPiprazole 10 MG TABLET PO SCH (09:28)
[2020-11-03] MEDS: CLINDAMYCIN PHOSPHATE 1% TOPICAL GEL 30 GM TUBE TP SCH ×2 (09:32→21:45)
[2020-11-03] MEDS ORDERED: PT OWN MED DRAWER 7, Y5N ONE (09:32)
[2020-11-03] MEDS: PRENATAL VITAMINS W/ FOLIC ACID TABLET (FP) PO SCH (10:41)
[2020-11-03] MEDS: THIAMINE HCL 100 MG TABLET (FP) PO SCH (21:45)
[2020-11-03] MEDS: SUVOREXANT 10 MG TABLET PO PRN (21:45)
[2020-11-04] MEDS ORDERED: methaDONE HCL 40 MG DISPERSABLE TABLET ONE (03:16)
[2020-11-04] MEDS ORDERED: methaDONE HCL 10 MG TABLET ONE (03:16)
[2020-11-04] MEDS: amLODIPine BESYLATE 5 MG TABLET (FP) PO SCH (09:58)
[2020-11-04] MEDS: PANTOPRAZOLE 40 MG TABLET PO SCH (09:58)
[2020-11-04] MEDS: PRENATAL VITAMINS W/ FOLIC ACID TABLET (FP) PO SCH (09:58)
[2020-11-04] MEDS: SERTRALINE HCL 50 MG TABLET (FP) PO SCH (09:58)
[2020-11-04] MEDS: ARIPiprazole 10 MG TABLET PO SCH (09:59)
[2020-11-04] MEDS: CLINDAMYCIN PHOSPHATE 1% TOPICAL GEL 30 GM TUBE TP SCH ×2 (09:59→21:10)
[2020-11-04] MEDS: NICOTINE 21 MG/24 HOURS TOPICAL PATCH TD SCH (09:59)
[2020-11-04] MEDS: SUVOREXANT 10 MG TABLET PO PRN (21:10)
[2020-11-04] MEDS: THIAMINE HCL 100 MG TABLET (FP) PO SCH (21:10)
[2020-11-05] MEDS ORDERED: methaDONE HCL 40 MG DISPERSABLE TABLET ONE (03:06)
[2020-11-05] MEDS ORDERED: methaDONE HCL 10 MG TABLET ONE (03:06)
[2020-11-05] MEDS: ARIPiprazole 10 MG TABLET PO SCH (10:32)
[2020-11-05] MEDS: SERTRALINE HCL 50 MG TABLET (FP) PO SCH (10:32)
[2020-11-05] MEDS: amLODIPine BESYLATE 5 MG TABLET (FP) PO SCH (10:32)
[2020-11-05] MEDS: PRENATAL VITAMINS W/ FOLIC ACID TABLET (FP) PO SCH (10:32)
[2020-11-05] MEDS: PANTOPRAZOLE 40 MG TABLET PO SCH (10:32)
[2020-11-05] MEDS: NICOTINE 21 MG/24 HOURS TOPICAL PATCH TD SCH (10:32)
[2020-11-05] MEDS: CLINDAMYCIN PHOSPHATE 1% TOPICAL GEL 30 GM TUBE TP SCH (10:34)
[2020-11-05] MEDS: THIAMINE HCL 100 MG TABLET (FP) PO SCH (21:34)
[2020-11-05] MEDS: SUVOREXANT 10 MG TABLET PO PRN (21:34)
[2020-11-06] MEDS ORDERED: methaDONE HCL 40 MG DISPERSABLE TABLET ONE (04:05)
[2020-11-06] MEDS ORDERED: methaDONE HCL 10 MG TABLET ONE (04:05)
[2020-11-06] MEDS: NICOTINE 21 MG/24 HOURS TOPICAL PATCH TD SCH (09:43)
[2020-11-06] MEDS: amLODIPine BESYLATE 5 MG TABLET (FP) PO SCH (09:43)
[2020-11-06] MEDS: ARIPiprazole 10 MG TABLET PO SCH (09:43)
[2020-11-06] MEDS: PANTOPRAZOLE 40 MG TABLET PO SCH (09:43)
[2020-11-06] MEDS: SERTRALINE HCL 50 MG TABLET (FP) PO SCH (09:43)
[2020-11-06] MEDS: PRENATAL VITAMINS W/ FOLIC ACID TABLET (FP) PO SCH (09:43)
[2020-11-06] MEDS: CIPROFLOXACIN HCL 0.3% OPHTH 2.5ML BOTTLE OD SCH ×6 (12:46→23:29)
[2020-11-06] MEDS: THIAMINE HCL 100 MG TABLET (FP) PO SCH (21:05)
[2020-11-06] MEDS: SUVOREXANT 10 MG TABLET PO PRN (21:06)
[2020-11-07] MEDS: CIPROFLOXACIN HCL 0.3% OPHTH 2.5ML BOTTLE OD SCH ×8 (02:30→21:28)
[2020-11-07] MEDS ORDERED: methaDONE HCL 40 MG DISPERSABLE TABLET ONE (03:07)
[2020-11-07] MEDS ORDERED: methaDONE HCL 10 MG TABLET ONE (03:07)
[2020-11-07] MEDS: amLODIPine BESYLATE 5 MG TABLET (FP) PO SCH (09:47)
[2020-11-07] MEDS: ARIPiprazole 10 MG TABLET PO SCH (09:47)
[2020-11-07] MEDS: PRENATAL VITAMINS W/ FOLIC ACID TABLET (FP) PO SCH (09:47)
[2020-11-07] MEDS: NICOTINE 21 MG/24 HOURS TOPICAL PATCH TD SCH (09:47)
[2020-11-07] MEDS: SERTRALINE HCL 50 MG TABLET (FP) PO SCH (09:47)
[2020-11-07] MEDS: PANTOPRAZOLE 40 MG TABLET PO SCH (09:47)
[2020-11-07] MEDS: THIAMINE HCL 100 MG TABLET (FP) PO SCH (21:26)
[2020-11-07] MEDS: SUVOREXANT 10 MG TABLET PO PRN (21:27)
[2020-11-08] MEDS: CIPROFLOXACIN HCL 0.3% OPHTH 2.5ML BOTTLE OD SCH ×6 (02:14→21:00)
[2020-11-08] MEDS ORDERED: methaDONE HCL 10 MG TABLET ONE (03:07)
[2020-11-08] MEDS ORDERED: methaDONE HCL 40 MG DISPERSABLE TABLET ONE (03:07)
[2020-11-08] MEDS: amLODIPine BESYLATE 5 MG TABLET (FP) PO SCH (09:50)
[2020-11-08] MEDS: NICOTINE 21 MG/24 HOURS TOPICAL PATCH TD SCH (09:50)
[2020-11-08] MEDS: ARIPiprazole 10 MG TABLET PO SCH (09:50)
[2020-11-08] MEDS: PANTOPRAZOLE 40 MG TABLET PO SCH (09:50)
[2020-11-08] MEDS: PRENATAL VITAMINS W/ FOLIC ACID TABLET (FP) PO SCH (09:51)
[2020-11-08] MEDS: SERTRALINE HCL 50 MG TABLET (FP) PO SCH (09:51)
[2020-11-08] MEDS: THIAMINE HCL 100 MG TABLET (FP) PO SCH (21:00)
[2020-11-08] MEDS: SUVOREXANT 10 MG TABLET PO PRN (21:01)
[2020-11-09] MEDS: CIPROFLOXACIN HCL 0.3% OPHTH 2.5ML BOTTLE OD SCH ×6 (01:27→21:35)
[2020-11-09] MEDS ORDERED: methaDONE HCL 40 MG DISPERSABLE TABLET ONE (03:56)
[2020-11-09] MEDS ORDERED: methaDONE HCL 10 MG TABLET ONE (03:56)
[2020-11-09] MEDS: PRENATAL VITAMINS W/ FOLIC ACID TABLET (FP) PO SCH (10:02)
[2020-11-09] MEDS: amLODIPine BESYLATE 5 MG TABLET (FP) PO SCH (10:02)
[2020-11-09] MEDS: ARIPiprazole 10 MG TABLET PO SCH (10:02)
[2020-11-09] MEDS: SERTRALINE HCL 50 MG TABLET (FP) PO SCH (10:02)
[2020-11-09] MEDS: NICOTINE 21 MG/24 HOURS TOPICAL PATCH TD SCH (10:02)
[2020-11-09] MEDS: PANTOPRAZOLE 40 MG TABLET PO SCH (10:02)
[2020-11-09] MEDS: SUVOREXANT 10 MG TABLET PO PRN (21:35)
[2020-11-09] MEDS: THIAMINE HCL 100 MG TABLET (FP) PO SCH (21:35)
[2020-11-10] MEDS: CIPROFLOXACIN HCL 0.3% OPHTH 2.5ML BOTTLE OD SCH ×6 (02:05→21:04)
[2020-11-10] MEDS ORDERED: methaDONE HCL 10 MG TABLET ONE (02:57)
[2020-11-10] MEDS ORDERED: methaDONE HCL 40 MG DISPERSABLE TABLET ONE (02:57)
[2020-11-10] MEDS: amLODIPine BESYLATE 5 MG TABLET (FP) PO SCH (09:47)
[2020-11-10] MEDS: ARIPiprazole 10 MG TABLET PO SCH (09:47)
[2020-11-10] MEDS: PRENATAL VITAMINS W/ FOLIC ACID TABLET (FP) PO SCH (09:47)
[2020-11-10] MEDS: PANTOPRAZOLE 40 MG TABLET PO SCH (09:47)
[2020-11-10] MEDS: SERTRALINE HCL 50 MG TABLET (FP) PO SCH (09:47)
[2020-11-10] MEDS: NICOTINE 21 MG/24 HOURS TOPICAL PATCH TD SCH (09:47)
[2020-11-10] MEDS: THIAMINE HCL 100 MG TABLET (FP) PO SCH (21:04)
[2020-11-10] MEDS: SUVOREXANT 10 MG TABLET PO PRN (21:06)
[2020-11-11] MEDS: CIPROFLOXACIN HCL 0.3% OPHTH 2.5ML BOTTLE OD SCH ×4 (02:23→15:12)
[2020-11-11] MEDS ORDERED: methaDONE HCL 10 MG TABLET ONE (03:00)
[2020-11-11] MEDS ORDERED: methaDONE HCL 40 MG DISPERSABLE TABLET ONE (03:00)
[2020-11-11] MEDS ORDERED: PT OWN MED DRAWER 7, Y5N ONE (09:29)
[2020-11-11] MEDS: SERTRALINE HCL 50 MG TABLET (FP) PO SCH (09:56)
[2020-11-11] MEDS: ARIPiprazole 10 MG TABLET PO SCH (09:57)
[2020-11-11] MEDS: PANTOPRAZOLE 40 MG TABLET PO SCH (09:57)
[2020-11-11] MEDS: NICOTINE 21 MG/24 HOURS TOPICAL PATCH TD SCH (09:57)
[2020-11-11] MEDS: amLODIPine BESYLATE 5 MG TABLET (FP) PO SCH (09:57)
[2020-11-11] MEDS: PRENATAL VITAMINS W/ FOLIC ACID TABLET (FP) PO SCH (09:58)
[2020-11-11] MEDS ORDERED: SUVOREXANT 10 MG TABLET PO PRN (22:00)
[2020-11-11] MEDS: THIAMINE HCL 100 MG TABLET (FP) PO SCH (22:03)
[2020-11-12] MEDS ORDERED: methaDONE HCL 40 MG DISPERSABLE TABLET ONE (03:02)
[2020-11-12] MEDS ORDERED: methaDONE HCL 10 MG TABLET ONE (03:03)
[2020-11-12 08:14] VITALS: TEMP 96
[2020-11-12] MEDS: NICOTINE 21 MG/24 HOURS TOPICAL PATCH TD SCH (09:44)
[2020-11-12] MEDS: PRENATAL VITAMINS W/ FOLIC ACID TABLET (FP) PO SCH (09:44)
[2020-11-12] MEDS: PANTOPRAZOLE 40 MG TABLET PO SCH (09:45)
[2020-11-12] MEDS: ARIPiprazole 10 MG TABLET PO SCH (09:45)
[2020-11-12] MEDS: SERTRALINE HCL 50 MG TABLET (FP) PO SCH (09:45)
[2020-11-12] MEDS: amLODIPine BESYLATE 5 MG TABLET (FP) PO SCH (09:45)
[2020-11-12 11:28] VITALS: BP 134/90; PULSE 69
== END 2020-11-12 15:30 | disposition home or self-care (01) | DRG 772 ==
LOC: YASAS 16:34 → Y3W 20:39
PROVIDERS: ADMIT Allergy & Immunology; ATTEND Allergy & Immunology
PROC: HZ42ZZZ Group Counseling for Substance Abuse Treatment, Cognitive-Behavioral (ICD-10-PCS; principal; 2020-10-23)
DX: F10.20 Alcohol dependence, uncomplicated (principal); F11.20 Opioid dependence, uncomplicated; F14.20 Cocaine dependence, uncomplicated; F13.20 Sedative, hypnotic or anxiolytic dependence, uncomplicated; F17.210 Nicotine dependence, cigarettes, uncomplicated; F20.9 Schizophrenia, unspecified; F31.81 Bipolar II disorder; F19.24 Other psychoactive substance dependence with psychoactive substance-induced mood disorder; I10 Essential (primary) hypertension; K21.9 Gastro-esophageal reflux disease without esophagitis; H00.011 Hordeolum externum right upper eyelid; R76.11 Nonspecific reaction to tuberculin skin test without active tuberculosis; Z96.641 Presence of right artificial hip joint; S05.01XA Injury of conjunctiva and corneal abrasion without foreign body, right eye, initial encounter; Y04.0XXA Assault by unarmed brawl or fight, initial encounter; Y92.230 Patient room in hospital as the place of occurrence of the external cause; Z56.0 Unemployment, unspecified
CPT/HCPCS: 36415; 80053; 81003; 85027; 86780; 93005; 93010; C9803; U0003; U0005

== ENCOUNTER 2020-11-05 11:52 | Emergency (ER) | payer OTHER ==
[2020-11-05 12:07] VITALS: BP 109/73; PULSE 71; TEMP 96.8; BMI 34.8
[2020-11-05] MEDS ORDERED: CIPROFLOXACIN HCL 0.3% OPHTH 2.5ML BOTTLE OD ONE (14:02)
[2020-11-05] MEDS ORDERED: PT OWN MED DRAWER 7, Y5N ONE (14:45)
== END 2020-11-05 16:00 | disposition home or self-care (01) ==
LOC: JER 11:52
DX: S05.01XA Injury of conjunctiva and corneal abrasion without foreign body, right eye, initial encounter (principal); Y04.8XXA Assault by other bodily force, initial encounter
CPT/HCPCS: 99283-25

== ENCOUNTER 2021-11-22 12:26 | Inpatient (IN) | payer OTHER ==
[2021-11-22 17:31] VITALS: BMI 31.5
[2021-11-22] MEDS ORDERED: MAGNESIUM CITRATE 300 ML BOTTLE PO PRN (18:08)
[2021-11-22] MEDS ORDERED: DICYCLOMINE HCL 10 MG CAPSULE PO PRN (18:08)
[2021-11-22] MEDS ORDERED: LOPERAMIDE HCL 2 MG CAPSULE PO PRN (18:08)
[2021-11-22] MEDS ORDERED: chlordiazePOXIDE HCL 25 MG CAPSULE PO PRN (18:08)
[2021-11-22] MEDS ORDERED: IBUPROFEN 600 MG TABLET (FP) PO PRN (18:08)
[2021-11-22] MEDS ORDERED: BISMUTH SUBSALICYLATE 524 MG/30 ML PO PRN (18:08)
[2021-11-22] MEDS ORDERED: MAGNESIUM HYDROX 2400MG/30ML ORAL SUSPENSION 30 ML CUP PO PRN (18:08)
[2021-11-22] MEDS ORDERED: NALOXONE HCL (KLOXXADO) 8 MG SPRAY NS PRN (18:08)
[2021-11-22] MEDS ORDERED: IBUPROFEN 400 MG TABLET (FP) PO PRN (18:08)
[2021-11-22] MEDS ORDERED: BENZOCAINE/MENTHOL (CHLORASEPTIC ) LOZENGE MM PRN (18:08)
[2021-11-22] MEDS ORDERED: ACETAMINOPHEN 325 MG TABLET (FP) PO PRN (18:08)
[2021-11-22] MEDS ORDERED: MAG HYDROX/AL HYDROX/SIMETH 30 ML UNIT-DOSE CUP PO PRN (18:08)
[2021-11-22] MEDS ORDERED: ONDANSETRON *ODT* 4 MG TABLET SL PRN (18:08)
[2021-11-22] MEDS ORDERED: NICOTINE 10 MG CARTRIDGE (INHALER) IH PRN (18:08)
[2021-11-22] MEDS: amLODIPine BESYLATE 5 MG TABLET (FP) PO SCH (19:26)
[2021-11-22] MEDS: chlordiazePOXIDE HCL 25 MG CAPSULE PO SCH ×2 (19:30→22:31)
[2021-11-22] MEDS: THIAMINE HCL 100 MG TABLET (FP) PO SCH (22:31)
[2021-11-22] MEDS: MELATONIN 5 MG TABLETS PO SCH (22:33)
[2021-11-22] MEDS: ACETAMINOPHEN 325 MG TABLET (FP) PO PRN (22:34)
[2021-11-22] MEDS: hydrOXYzine PAMOATE 25 MG CAPSULE (FP) PO SCH (23:06)
[2021-11-23] MEDS: chlordiazePOXIDE HCL 25 MG CAPSULE PO SCH ×4 (06:20→22:22)
[2021-11-23] MEDS: hydrOXYzine PAMOATE 25 MG CAPSULE (FP) PO SCH ×5 (06:48→22:22)
[2021-11-23] MEDS: PRENATAL VITAMINS W/ FOLIC ACID TABLET (FP) PO SCH (10:45)
[2021-11-23] MEDS: amLODIPine BESYLATE 5 MG TABLET (FP) PO SCH (10:45)
[2021-11-23] MEDS: PANTOPRAZOLE 40 MG TABLET PO SCH (10:45)
[2021-11-23] MEDS: METHOCARBAMOL 500 MG TABLET PO PRN (10:45)
[2021-11-23] MEDS: NICOTINE 21 MG/24 HOURS TOPICAL PATCH TD SCH (10:46)
[2021-11-23 11:04] LABS: HEMATOCRIT 36.4 % (35.4-49); MCH 29.5 pg (25.7-33.7); MEAN CELL VOLUME 89.4 fl (80-96); MEAN PLT VOLUME 10.5 fl (7.5-11.1); PLATELET COUNT 167 10^3/uL (134-434); RBC 4.07 M/mm3 (4.00-5.60); RDW 13.9 % (11.9-15.9); WHITE BLOOD COUNT 4.9 K/mm3 (4.0-10.0)
[2021-11-23 11:26] LABS: BLOOD UREA NITROGEN 24.8 mg/dL (7-18)
[2021-11-23 11:30] LABS: BILIRUBIN,TOTAL 0.3 mg/dL (0.2-1); TOT PROT 6.7 g/dl (6.4-8.2)
[2021-11-23] MEDS: methaDONE HCL 10 MG TABLET PO SCH (12:13)
[2021-11-23] MEDS: THIAMINE HCL 100 MG TABLET (FP) PO SCH (22:22)
[2021-11-23] MEDS: QUEtiapine FUMARATE 50 MG TABLET PO SCH (22:22)
[2021-11-23] MEDS: MELATONIN 5 MG TABLETS PO SCH (22:22)
[2021-11-24] MEDS: methaDONE HCL 10 MG TABLET PO SCH (06:12)
[2021-11-24] MEDS: hydrOXYzine PAMOATE 25 MG CAPSULE (FP) PO SCH ×5 (06:13→22:25)
[2021-11-24] MEDS: chlordiazePOXIDE HCL 25 MG CAPSULE PO SCH ×4 (06:13→22:25)
[2021-11-24] MEDS: NICOTINE 21 MG/24 HOURS TOPICAL PATCH TD SCH (09:55)
[2021-11-24] MEDS: amLODIPine BESYLATE 5 MG TABLET (FP) PO SCH (09:55)
[2021-11-24] MEDS: PRENATAL VITAMINS W/ FOLIC ACID TABLET (FP) PO SCH (09:55)
[2021-11-24] MEDS: PANTOPRAZOLE 40 MG TABLET PO SCH (09:55)
[2021-11-24] MEDS: METHOCARBAMOL 500 MG TABLET PO PRN ×2 (09:55→17:59)
[2021-11-24] MEDS: QUEtiapine FUMARATE 50 MG TABLET PO SCH (22:25)
[2021-11-24] MEDS: MELATONIN 5 MG TABLETS PO SCH (22:25)
[2021-11-24] MEDS: THIAMINE HCL 100 MG TABLET (FP) PO SCH (22:25)
[2021-11-25] MEDS ORDERED: chlordiazePOXIDE HCL 10 MG CAPSULE PO PRN
[2021-11-25] MEDS: hydrOXYzine PAMOATE 25 MG CAPSULE (FP) PO SCH ×5 (05:43→22:20)
[2021-11-25] MEDS: chlordiazePOXIDE HCL 10 MG CAPSULE PO SCH ×4 (05:43→22:19)
[2021-11-25] MEDS ORDERED: methaDONE HCL 10 MG TABLET PO SCH (10:00)
[2021-11-25] MEDS: amLODIPine BESYLATE 5 MG TABLET (FP) PO SCH (10:46)
[2021-11-25] MEDS: NICOTINE 21 MG/24 HOURS TOPICAL PATCH TD SCH (10:46)
[2021-11-25] MEDS: PANTOPRAZOLE 40 MG TABLET PO SCH (10:46)
[2021-11-25] MEDS: PRENATAL VITAMINS W/ FOLIC ACID TABLET (FP) PO SCH (10:46)
[2021-11-25] MEDS: ACETAMINOPHEN 325 MG TABLET (FP) PO PRN (17:40)
[2021-11-25] MEDS: QUEtiapine FUMARATE 50 MG TABLET PO SCH (22:19)
[2021-11-25] MEDS: THIAMINE HCL 100 MG TABLET (FP) PO SCH (22:19)
[2021-11-25] MEDS: MELATONIN 5 MG TABLETS PO SCH (22:20)
[2021-11-26] MEDS: hydrOXYzine PAMOATE 25 MG CAPSULE (FP) PO SCH ×5 (05:49→22:24)
[2021-11-26] MEDS: chlordiazePOXIDE HCL 10 MG CAPSULE PO SCH ×2 (05:49→17:26)
[2021-11-26] MEDS: amLODIPine BESYLATE 5 MG TABLET (FP) PO SCH (10:21)
[2021-11-26] MEDS: METHOCARBAMOL 500 MG TABLET PO PRN (10:21)
[2021-11-26] MEDS: PANTOPRAZOLE 40 MG TABLET PO SCH (10:21)
[2021-11-26] MEDS: NICOTINE 21 MG/24 HOURS TOPICAL PATCH TD SCH (10:21)
[2021-11-26] MEDS: PRENATAL VITAMINS W/ FOLIC ACID TABLET (FP) PO SCH (10:21)
[2021-11-26] MEDS: THIAMINE HCL 100 MG TABLET (FP) PO SCH (22:24)
[2021-11-26] MEDS: QUEtiapine FUMARATE 50 MG TABLET PO SCH (22:24)
[2021-11-26] MEDS: MELATONIN 5 MG TABLETS PO SCH (22:25)
[2021-11-27] MEDS ORDERED: chlordiazePOXIDE HCL 10 MG CAPSULE PO ONE (05:00)
[2021-11-27] MEDS: hydrOXYzine PAMOATE 25 MG CAPSULE (FP) PO SCH ×2 (06:01→09:53)
[2021-11-27 08:51] VITALS: BP 140/90; PULSE 81; RESP 19; TEMP 98.1
[2021-11-27] MEDS: NICOTINE 21 MG/24 HOURS TOPICAL PATCH TD SCH (09:53)
[2021-11-27] MEDS: PANTOPRAZOLE 40 MG TABLET PO SCH (09:53)
[2021-11-27] MEDS: amLODIPine BESYLATE 5 MG TABLET (FP) PO SCH (09:53)
[2021-11-27] MEDS: PRENATAL VITAMINS W/ FOLIC ACID TABLET (FP) PO SCH (09:54)
== END 2021-11-27 11:50 | disposition other institution (70) | DRG 773 ==
LOC: YASAS 12:26 → Y6N 18:37
PROVIDERS: ADMIT Allergy & Immunology; ATTEND Surgery
PROC: HZ2ZZZZ Detoxification Services for Substance Abuse Treatment (ICD-10-PCS; principal; 2021-11-22)
DX: F11.20 Opioid dependence, uncomplicated (principal); F10.230 Alcohol dependence with withdrawal, uncomplicated; F14.20 Cocaine dependence, uncomplicated; F17.210 Nicotine dependence, cigarettes, uncomplicated; F25.9 Schizoaffective disorder, unspecified; I10 Essential (primary) hypertension; K21.9 Gastro-esophageal reflux disease without esophagitis; B18.2 Chronic viral hepatitis C; R76.11 Nonspecific reaction to tuberculin skin test without active tuberculosis; Z96.641 Presence of right artificial hip joint
CPT/HCPCS: 36415; 71046-TC-FY; 80053; 85027; 86780; C9803-CS; U0003; U0005

== ENCOUNTER 2022-05-03 13:25 | Inpatient (IN) | payer OTHER ==
[2022-05-03 13:46] VITALS: BMI 31.5
[2022-05-03] MEDS ORDERED: BISMUTH SUBSALICYLATE 524 MG/30 ML PO PRN (18:19)
[2022-05-03] MEDS ORDERED: POLYETHYLENE GLYCOL (HEALTHYLAX) 3350 17 GM PACKET PO PRN (18:19)
[2022-05-03] MEDS ORDERED: ONDANSETRON *ODT* 4 MG TABLET SL PRN (18:19)
[2022-05-03] MEDS ORDERED: NICOTINE POLACRILEX 2 MG GUM BUC PRN (18:19)
[2022-05-03] MEDS ORDERED: METHOCARBAMOL 500 MG TABLET PO PRN (18:19)
[2022-05-03] MEDS ORDERED: MAGNESIUM HYDROX 2400MG/30ML ORAL SUSPENSION 30 ML CUP PO PRN (18:19)
[2022-05-03] MEDS ORDERED: hydrOXYzine PAMOATE 25 MG CAPSULE (FP) PO PRN (18:19)
[2022-05-03] MEDS ORDERED: LOPERAMIDE HCL 2 MG CAPSULE PO PRN (18:19)
[2022-05-03] MEDS ORDERED: NALOXONE HCL (KLOXXADO) 8 MG SPRAY NS PRN (18:19)
[2022-05-03] MEDS ORDERED: BENZOCAINE/MENTHOL (CHLORASEPTIC ) LOZENGE MM PRN (18:19)
[2022-05-03] MEDS ORDERED: DICYCLOMINE HCL 10 MG CAPSULE PO PRN (18:19)
[2022-05-03] MEDS ORDERED: IBUPROFEN 400 MG TABLET (FP) PO PRN (18:19)
[2022-05-03] MEDS ORDERED: ACETAMINOPHEN 325 MG TABLET (FP) PO PRN ×2 (18:19)
[2022-05-03] MEDS ORDERED: NICOTINE 10 MG CARTRIDGE (INHALER) IH PRN (18:19)
[2022-05-03] MEDS ORDERED: LORazepam 1 MG TABLET PO PRN (18:19)
[2022-05-03] MEDS ORDERED: MAG HYDROX/AL HYDROX/SIMETH 30 ML UNIT-DOSE CUP PO PRN (18:19)
[2022-05-03] MEDS: NICOTINE 21 MG/24 HOURS TOPICAL PATCH TD SCH (18:45)
[2022-05-03] MEDS ORDERED: LORazepam 2 MG TABLET ONE (22:09)
[2022-05-03] MEDS ORDERED: MELATONIN 5 MG TABLETS ONE (22:26)
[2022-05-03] MEDS: THIAMINE HCL 100 MG TABLET (FP) PO SCH (22:32)
[2022-05-03] MEDS: MELATONIN 5 MG TABLETS PO SCH (22:34)
[2022-05-03] MEDS: LORazepam 2 MG TABLET PO SCH (23:00)
[2022-05-04] MEDS: LORazepam 2 MG TABLET PO SCH ×4 (08:10→22:45)
[2022-05-04 09:26] LABS: CALCIUM 8.9 mg/dL (8.5-10.1)
[2022-05-04 09:27] LABS: ALBUMIN 3.1 g/dl (3.4-5.0); BLOOD UREA NITROGEN 20.6 mg/dL (7-18)
[2022-05-04 09:30] LABS: CREATININE 1.3 mg/dL (0.55-1.3)
[2022-05-04 09:31] LABS: BILIRUBIN,TOTAL 0.4 mg/dL (0.2-1); TOT PROT 7.1 g/dl (6.4-8.2)
[2022-05-04 09:35] LABS: HEMOGLOBIN 12.4 GM/dL (11.7-16.9); MCH 28.9 pg (25.7-33.7); MCHC 32.8 g/dl (32.0-35.9); MEAN CELL VOLUME 88.1 fl (80-96); MEAN PLT VOLUME 9.9 fl (7.5-11.1); PLATELET COUNT 221 10^3/uL (134-434); RBC 4.31 M/mm3 (4.00-5.60); RDW 15.4 % (11.9-15.9); WHITE BLOOD COUNT 5.1 K/mm3 (4.0-10.0)
[2022-05-04] MEDS ORDERED: LORazepam 2 MG TABLET ONE (11:25)
[2022-05-04] MEDS ORDERED: amLODIPine BESYLATE 5 MG TABLET (FP) ONE (11:26)
[2022-05-04] MEDS ORDERED: PRENATAL VITAMINS W/ FOLIC ACID TABLET (FP) PO ONE (11:27)
[2022-05-04] MEDS ORDERED: NICOTINE 21 MG/24 HOURS TOPICAL PATCH ONE (11:27)
[2022-05-04] MEDS: NICOTINE 21 MG/24 HOURS TOPICAL PATCH TD SCH (11:31)
[2022-05-04] MEDS: amLODIPine BESYLATE 5 MG TABLET (FP) PO SCH (11:31)
[2022-05-04] MEDS: PRENATAL VITAMINS W/ FOLIC ACID TABLET (FP) PO SCH (11:34)
[2022-05-04] MEDS ORDERED: methaDONE HCL 10 MG TABLET (FOR DETOX USE ONLY) PO ONE (12:33)
[2022-05-04] MEDS: PATIENT'S OWN MEDICATION (NON-FORMULARY) (Sofosbuvir/Velpatasvir [Sofosbuvir-Velpatasvir 4 PO SCH (14:01)
[2022-05-04] MEDS ORDERED: cloNIDine HCL 0.1 MG TABLET PO ONE (21:50)
[2022-05-04] MEDS: THIAMINE HCL 100 MG TABLET (FP) PO SCH (22:45)
[2022-05-04] MEDS: MELATONIN 5 MG TABLETS PO SCH (22:45)
[2022-05-05] MEDS: LORazepam 1 MG TABLET PO SCH ×4 (05:40→22:43)
[2022-05-05] MEDS: IBUPROFEN 600 MG TABLET (FP) PO PRN (05:43)
[2022-05-05] MEDS ORDERED: methaDONE HCL 10 MG TABLET PO SCH (09:00)
[2022-05-05] MEDS: ESOMEPRAZOLE MAGNESIUM 20 MG PO SCH (10:32)
[2022-05-05] MEDS: PRENATAL VITAMINS W/ FOLIC ACID TABLET (FP) PO SCH (10:32)
[2022-05-05] MEDS: NICOTINE 21 MG/24 HOURS TOPICAL PATCH TD SCH (10:33)
[2022-05-05] MEDS: amLODIPine BESYLATE 5 MG TABLET (FP) PO SCH (10:33)
[2022-05-05] MEDS: PATIENT'S OWN MEDICATION (NON-FORMULARY) (Sofosbuvir/Velpatasvir [Sofosbuvir-Velpatasvir 4 PO SCH (10:36)
[2022-05-05] MEDS: THIAMINE HCL 100 MG TABLET (FP) PO SCH (22:42)
[2022-05-05] MEDS: MELATONIN 5 MG TABLETS PO SCH (22:43)
[2022-05-06] MEDS ORDERED: LORazepam 0.5 MG TABLET PO PRN
[2022-05-06] MEDS: IBUPROFEN 600 MG TABLET (FP) PO PRN ×2 (02:52→17:34)
[2022-05-06] MEDS: LORazepam 0.5 MG TABLET PO SCH ×4 (05:55→22:35)
[2022-05-06] MEDS: NICOTINE 21 MG/24 HOURS TOPICAL PATCH TD SCH (10:21)
[2022-05-06] MEDS: ESOMEPRAZOLE MAGNESIUM 20 MG PO SCH (10:21)
[2022-05-06] MEDS: amLODIPine BESYLATE 5 MG TABLET (FP) PO SCH (10:22)
[2022-05-06] MEDS: PRENATAL VITAMINS W/ FOLIC ACID TABLET (FP) PO SCH (10:22)
[2022-05-06] MEDS: PATIENT'S OWN MEDICATION (NON-FORMULARY) (Sofosbuvir/Velpatasvir [Sofosbuvir-Velpatasvir 4 PO SCH (10:22)
[2022-05-06] MEDS: MELATONIN 5 MG TABLETS PO SCH (22:35)
[2022-05-06] MEDS: THIAMINE HCL 100 MG TABLET (FP) PO SCH (22:35)
[2022-05-07] MEDS ORDERED: LORazepam 0.5 MG TABLET PO ONE (05:00)
[2022-05-07] MEDS: IBUPROFEN 600 MG TABLET (FP) PO PRN (05:22)
[2022-05-07] MEDS: PRENATAL VITAMINS W/ FOLIC ACID TABLET (FP) PO SCH (09:54)
[2022-05-07] MEDS: PATIENT'S OWN MEDICATION (NON-FORMULARY) (Sofosbuvir/Velpatasvir [Sofosbuvir-Velpatasvir 4 PO SCH (09:54)
[2022-05-07] MEDS: NICOTINE 21 MG/24 HOURS TOPICAL PATCH TD SCH (09:54)
[2022-05-07] MEDS: ESOMEPRAZOLE MAGNESIUM 20 MG PO SCH (09:54)
[2022-05-07] MEDS: amLODIPine BESYLATE 5 MG TABLET (FP) PO SCH (09:54)
[2022-05-07 10:12] VITALS: BP 149/94; PULSE 90; RESP 19; TEMP 98.4
== END 2022-05-07 10:27 | disposition home or self-care (01) | DRG 773 ==
LOC: YASAS 13:25 → Y6N 05-04 10:15
PROVIDERS: ADMIT Allergy & Immunology; ATTEND Surgery
PROC: HZ2ZZZZ Detoxification Services for Substance Abuse Treatment (ICD-10-PCS; principal; 2022-05-04)
DX: F11.23 Opioid dependence with withdrawal (principal); F10.230 Alcohol dependence with withdrawal, uncomplicated; F14.20 Cocaine dependence, uncomplicated; F17.210 Nicotine dependence, cigarettes, uncomplicated; F31.9 Bipolar disorder, unspecified; I10 Essential (primary) hypertension; K21.9 Gastro-esophageal reflux disease without esophagitis; B18.2 Chronic viral hepatitis C; Z96.641 Presence of right artificial hip joint
CPT/HCPCS: 36415; 80053; 85027; 86780; C9803-CS; U0003; U0005

== ENCOUNTER 2023-05-28 16:20 | Inpatient (IN) | payer OTHER ==
[2023-05-28 17:01] VITALS: BMI 33.3
[2023-05-28] MEDS ORDERED: ONDANSETRON *ODT* 4 MG TABLET SL PRN (18:02)
[2023-05-28] MEDS ORDERED: guaiFENesin 600 MG TABLET.ER (FP) PO PRN (18:02)
[2023-05-28] MEDS ORDERED: LOPERAMIDE HCL 2 MG CAPSULE PO PRN (18:02)
[2023-05-28] MEDS ORDERED: NALOXONE HCL 0.4 MG/ML VIAL IM PRN (18:02)
[2023-05-28] MEDS ORDERED: ACETAMINOPHEN 325 MG TABLET (FP) PO PRN (18:02)
[2023-05-28] MEDS ORDERED: DICYCLOMINE HCL 10 MG CAPSULE PO PRN (18:02)
[2023-05-28] MEDS ORDERED: BENZONATATE 200 MG CAPSULE PO PRN (18:02)
[2023-05-28] MEDS ORDERED: BISMUTH SUBSALICYLATE 524 MG/30 ML PO PRN (18:02)
[2023-05-28] MEDS ORDERED: BENZOCAINE/MENTHOL (CHLORASEPTIC ) LOZENGE MM PRN (18:02)
[2023-05-28] MEDS ORDERED: POLYETHYLENE GLYCOL (HEALTHYLAX) 3350 17 GM PACKET PO PRN (18:02)
[2023-05-28] MEDS ORDERED: MAGNESIUM HYDROX 2400MG/30ML ORAL SUSPENSION 30 ML CUP PO PRN (18:02)
[2023-05-28] MEDS ORDERED: IBUPROFEN 400 MG TABLET (FP) PO PRN (18:02)
[2023-05-28] MEDS ORDERED: NALOXONE HCL (KLOXXADO) 8 MG SPRAY NS PRN (18:02)
[2023-05-28] MEDS: METHOCARBAMOL 500 MG TABLET PO PRN (22:31)
[2023-05-28] MEDS: THIAMINE HCL 100 MG TABLET (FP) PO SCH (22:31)
[2023-05-28] MEDS: hydrOXYzine PAMOATE 25 MG CAPSULE (FP) PO PRN (22:31)
[2023-05-28] MEDS: MELATONIN 5 MG TABLETS PO SCH (22:31)
[2023-05-28] MEDS: MAG HYDROX/AL HYDROX/SIMETH 30 ML UNIT-DOSE CUP PO PRN (22:32)
[2023-05-29] MEDS: PRENATAL VITAMINS W/ FOLIC ACID TABLET (FP) PO SCH (10:16)
[2023-05-29] MEDS: PANTOPRAZOLE 40 MG TABLET PO SCH (10:17)
[2023-05-29] MEDS: diazePAM 5 MG TABLET PO SCH (10:50)
[2023-05-29 12:12] LABS: HEMATOCRIT 38.8 % (35.4-49); HEMOGLOBIN 12.6 GM/dL (11.7-16.9); MCH 29.5 pg (25.7-33.7); MCHC 32.4 g/dl (32.0-35.9); MEAN CELL VOLUME 91.1 fl (80-96); MEAN PLT VOLUME 9.8 fl (7.5-11.1); PLATELET COUNT 213 10^3/uL (134-434); RBC 4.26 M/mm3 (4.00-5.60); RDW 13.9 % (11.9-15.9)
[2023-05-29 12:30] LABS: CHLORIDE 106 mmol/L (98-107); SODIUM 138 mmol/L (136-145)
[2023-05-29 12:40] LABS: ALBUMIN 3.1 g/dl (3.4-5.0); CALCIUM 8.8 mg/dL (8.5-10.1)
[2023-05-29 12:41] LABS: ANION GAP 5 mmol/L (4-13); CO2 27 mmol/L (21-32); GLUCOSE,RANDOM 135 mg/dL (74-106)
[2023-05-29 12:44] LABS: CREATININE 1.2 mg/dL (0.55-1.3); SGOT/AST 13 U/L (15-37); SGPT/ALT 16 U/L (13-61)
[2023-05-29 12:46] LABS: BILIRUBIN,TOTAL 0.3 mg/dL (0.2-1); TOT PROT 6.7 g/dl (6.4-8.2)
[2023-05-29 12:47] LABS: ALK PHOS 95 U/L (45-117)
[2023-05-29] MEDS: methaDONE HCL 10 MG TABLET PO ONE (13:39)
[2023-05-29] MEDS ORDERED: cloNIDine HCL 0.1 MG TABLET PO PRN (14:26)
[2023-05-29] MEDS: cloNIDine HCL 0.1 MG TABLET PO ONE (15:24)
[2023-05-30] MEDS: IBUPROFEN 600 MG TABLET (FP) PO PRN (10:26)
[2023-05-30] MEDS: methaDONE HCL 10 MG TABLET PO SCH (11:46)
[2023-05-30] MEDS ORDERED: NICOTINE POLACRILEX 2 MG GUM BUC PRN (18:05)
[2023-05-30] MEDS: NICOTINE 14 MG/24 HOURS TOPICAL PATCH TD SCH (18:19)
[2023-05-31] MEDS: diazePAM 5 MG TABLET PO SCH (06:12)
[2023-05-31] MEDS: amLODIPine BESYLATE 5 MG TABLET (FP) PO SCH (10:30)
[2023-06-01] MEDS: diazePAM 5 MG TABLET PO PRN (01:35)
[2023-06-01] MEDS: diazePAM 5 MG TABLET PO SCH (05:42)
[2023-06-01 20:49] VITALS: PULSE 70; TEMP 97.7
[2023-06-02] MEDS: diazePAM 5 MG TABLET PO ONE (06:05)
[2023-06-02 06:14] VITALS: BP 148/77; RESP 20
== END 2023-06-02 10:04 | disposition home or self-care (01) | DRG 774 ==
LOC: YASAS 16:20 → Y6N 18:09
PROVIDERS: ADMIT Allergy & Immunology; ATTEND Surgery
PROC: HZ2ZZZZ Detoxification Services for Substance Abuse Treatment (ICD-10-PCS; principal; 2023-05-28)
DX: F13.230 Sedative, hypnotic or anxiolytic dependence with withdrawal, uncomplicated (principal); F14.20 Cocaine dependence, uncomplicated; F17.210 Nicotine dependence, cigarettes, uncomplicated; F31.81 Bipolar II disorder; I10 Essential (primary) hypertension; K21.9 Gastro-esophageal reflux disease without esophagitis; Z86.19 Personal history of other infectious and parasitic diseases; Z86.11 Personal history of tuberculosis
CPT/HCPCS: 36415; 71046-TC-FY; 80053; 80305; 80307; 83036; 85027; 86780; 93005; 93010

== ENCOUNTER 2023-08-14 17:01 | Inpatient (IN) | payer OTHER ==
[2023-08-14 18:44] VITALS: BMI 30.2
[2023-08-14] MEDS ORDERED: MAGNESIUM HYDROX 2400MG/30ML ORAL SUSPENSION 30 ML CUP PO PRN (20:45)
[2023-08-14] MEDS ORDERED: BENZONATATE 200 MG CAPSULE PO PRN (20:45)
[2023-08-14] MEDS ORDERED: guaiFENesin 600 MG TABLET.ER (FP) PO PRN (20:45)
[2023-08-14] MEDS ORDERED: LOPERAMIDE HCL 2 MG CAPSULE PO PRN (20:45)
[2023-08-14] MEDS ORDERED: IBUPROFEN 400 MG TABLET (FP) PO PRN (20:45)
[2023-08-14] MEDS ORDERED: DICYCLOMINE HCL 10 MG CAPSULE PO PRN (20:45)
[2023-08-14] MEDS ORDERED: BISMUTH SUBSALICYLATE 524 MG/30 ML PO PRN (20:45)
[2023-08-14] MEDS ORDERED: BENZOCAINE/MENTHOL (CHLORASEPTIC ) LOZENGE MM PRN (20:45)
[2023-08-14] MEDS ORDERED: NALOXONE HCL 0.4 MG/ML VIAL IM PRN (20:45)
[2023-08-14] MEDS ORDERED: NICOTINE POLACRILEX 4 MG GUM BUC PRN (20:45)
[2023-08-14] MEDS ORDERED: MAG HYDROX/AL HYDROX/SIMETH 30 ML UNIT-DOSE CUP PO PRN (20:45)
[2023-08-14] MEDS ORDERED: NALOXONE (NARCAN) HCL 4 MG/0.1 ML SPRAY NS PRN (20:45)
[2023-08-14] MEDS ORDERED: ONDANSETRON *ODT* 4 MG TABLET SL PRN (20:45)
[2023-08-14] MEDS ORDERED: POLYETHYLENE GLYCOL (HEALTHYLAX) 3350 17 GM PACKET PO PRN (20:45)
[2023-08-14] MEDS ORDERED: ACETAMINOPHEN 325 MG TABLET (FP) ONE (20:59)
[2023-08-14] MEDS: ACETAMINOPHEN 325 MG TABLET (FP) PO PRN (21:02)
[2023-08-14] MEDS: PANTOPRAZOLE 40 MG TABLET PO ONE (21:41)
[2023-08-14] MEDS: THIAMINE 100 MG TABLET PO SCH (21:41)
[2023-08-14] MEDS: MELATONIN 5 MG TABLETS PO SCH (21:42)
[2023-08-15] MEDS: amLODIPine BESYLATE 5 MG TABLET (FP) PO SCH (10:26)
[2023-08-15] MEDS: PANTOPRAZOLE 40 MG TABLET PO SCH (10:26)
[2023-08-15] MEDS: PRENATAL VITAMINS W/ FOLIC ACID TABLET (FP) PO SCH (10:26)
[2023-08-15] MEDS: NICOTINE 14 MG/24 HOURS TOPICAL PATCH TD SCH (10:29)
[2023-08-15 13:25] LABS: CHLORIDE 111 mmol/L (98-107); POTASSIUM 4.3 mmol/L (3.5-5.1); SODIUM 141 mmol/L (136-145)
[2023-08-15 13:28] LABS: HEMOGLOBIN 11.6 GM/dL (11.7-16.9); MCH 29.5 pg (25.7-33.7); MCHC 33.2 g/dl (32.0-35.9); MEAN CELL VOLUME 88.7 fl (80-96); MEAN PLT VOLUME 9.3 fl (7.5-11.1); PLATELET COUNT 201 10^3/uL (134-434); RBC 3.95 M/mm3 (4.00-5.60); RDW 14.3 % (11.9-15.9)
[2023-08-15 13:37] LABS: SGPT/ALT 16 U/L (13-61)
[2023-08-15 13:38] LABS: ALBUMIN 3.1 g/dl (3.4-5.0); ANION GAP 5 mmol/L (4-13); BLOOD UREA NITROGEN 32.4 mg/dL (7-18); CALCIUM 8.6 mg/dL (8.5-10.1); CO2 25 mmol/L (21-32); GLUCOSE,RANDOM 100 mg/dL (74-106)
[2023-08-15 13:39] LABS: SGOT/AST 14 U/L (15-37)
[2023-08-15 13:40] LABS: ALK PHOS 87 U/L (45-117); TOT PROT 6.6 g/dl (6.4-8.2)
[2023-08-15 13:42] LABS: CREATININE 1.2 mg/dL (0.55-1.3)
[2023-08-15 13:44] LABS: BILIRUBIN,TOTAL 0.3 mg/dL (0.2-1)
[2023-08-15] MEDS: methaDONE HCL 10 MG TABLET PO SCH (14:49)
[2023-08-16] MEDS: hydrOXYzine PAMOATE 25 MG CAPSULE (FP) PO PRN (05:27)
[2023-08-16] MEDS: IBUPROFEN 600 MG TABLET (FP) PO PRN (05:27)
[2023-08-17] MEDS ORDERED: methaDONE HCL 10 MG TABLET PO SCH (09:30)
[2023-08-17] MEDS: diazePAM 5 MG TABLET PO SCH (10:13)
[2023-08-17] MEDS: traZODone HCL 50 MG TABLET (FP) PO SCH (22:10)
[2023-08-18] MEDS: ARIPiprazole 5 MG TABLET PO SCH (10:19)
[2023-08-18 12:45] VITALS: BP 135/90; PULSE 72; RESP 20; TEMP 97.3
== END 2023-08-18 13:38 | disposition other institution (70) | DRG 773 ==
LOC: YASAS 17:01 → Y3N 20:45
PROVIDERS: ADMIT Allergy & Immunology; ATTEND Surgery
PROC: HZ2ZZZZ Detoxification Services for Substance Abuse Treatment (ICD-10-PCS; principal; 2023-08-14)
DX: F10.20 Alcohol dependence, uncomplicated (principal); F11.20 Opioid dependence, uncomplicated; F14.20 Cocaine dependence, uncomplicated; F17.210 Nicotine dependence, cigarettes, uncomplicated; I10 Essential (primary) hypertension; K21.9 Gastro-esophageal reflux disease without esophagitis; M54.50 Low back pain, unspecified; G89.29 Other chronic pain; Z86.59 Personal history of other mental and behavioral disorders; Z86.11 Personal history of tuberculosis; Z86.69 Personal history of other diseases of the nervous system and sense organs
CPT/HCPCS: 36415; 80053; 80305; 80307; 85027; 86780; 87811

== ENCOUNTER 2023-09-09 21:14 | Inpatient (IN) | payer OTHER ==
[2023-09-09 21:49] VITALS: BMI 31.8
[2023-09-09] MEDS ORDERED: NICOTINE POLACRILEX 2 MG GUM BUC PRN (22:20)
[2023-09-09] MEDS ORDERED: BISMUTH SUBSALICYLATE 524 MG/30 ML PO PRN (22:20)
[2023-09-09] MEDS ORDERED: BENZOCAINE/MENTHOL (CHLORASEPTIC ) LOZENGE MM PRN (22:20)
[2023-09-09] MEDS ORDERED: DICYCLOMINE HCL 10 MG CAPSULE PO PRN (22:20)
[2023-09-09] MEDS ORDERED: MAGNESIUM HYDROX 2400MG/30ML ORAL SUSPENSION 30 ML CUP PO PRN (22:20)
[2023-09-09] MEDS ORDERED: BENZONATATE 200 MG CAPSULE PO PRN (22:20)
[2023-09-09] MEDS ORDERED: NICOTINE POLACRILEX 2 MG LOZENGE BC PRN (22:20)
[2023-09-09] MEDS ORDERED: POLYETHYLENE GLYCOL (HEALTHYLAX) 3350 17 GM PACKET PO PRN (22:20)
[2023-09-09] MEDS ORDERED: P-EPHED 60MG/TRIPROLIDI 2.5MG TABLET PO PRN (22:20)
[2023-09-09] MEDS ORDERED: NALOXONE (NARCAN) HCL 4 MG/0.1 ML SPRAY NS PRN (22:20)
[2023-09-09] MEDS ORDERED: IBUPROFEN 400 MG TABLET (FP) PO PRN (22:20)
[2023-09-09] MEDS ORDERED: LOPERAMIDE HCL 2 MG CAPSULE PO PRN (22:20)
[2023-09-09] MEDS ORDERED: MAG HYDROX/AL HYDROX/SIMETH 30 ML UNIT-DOSE CUP PO PRN (22:20)
[2023-09-09] MEDS ORDERED: guaiFENesin 600 MG TABLET.ER (FP) PO PRN (22:20)
[2023-09-09] MEDS ORDERED: NALOXONE HCL 0.4 MG/ML VIAL IM PRN (22:20)
[2023-09-09] MEDS ORDERED: ONDANSETRON *ODT* 4 MG TABLET ONE (22:46)
[2023-09-09] MEDS: ONDANSETRON *ODT* 4 MG TABLET SL PRN (22:46)
[2023-09-10] MEDS ORDERED: diazePAM 5 MG TABLET PO PRN (08:32)
[2023-09-10] MEDS ORDERED: methaDONE HCL 40 MG DISPERSABLE TABLET PO SCH (08:45)
[2023-09-10] MEDS: methaDONE HCL 10 MG TABLET PO SCH (09:02)
[2023-09-10] MEDS: METHOCARBAMOL 500 MG TABLET PO PRN (10:25)
[2023-09-10] MEDS: PANTOPRAZOLE 40 MG TABLET PO SCH (10:25)
[2023-09-10] MEDS: diazePAM 5 MG TABLET PO SCH (10:25)
[2023-09-10] MEDS: PRENATAL VITAMINS W/ FOLIC ACID TABLET (FP) PO SCH (10:25)
[2023-09-10] MEDS: amLODIPine BESYLATE 5 MG TABLET (FP) PO SCH (10:25)
[2023-09-10] MEDS: ACETAMINOPHEN 325 MG TABLET (FP) PO PRN (17:34)
[2023-09-10] MEDS ORDERED: traZODone HCL 50 MG TABLET (FP) PO SCH (22:00)
[2023-09-10] MEDS: MELATONIN 5 MG TABLETS PO SCH (22:33)
[2023-09-10] MEDS: THIAMINE 100 MG TABLET PO SCH (22:33)
[2023-09-10] MEDS: traZODone HCL 50 MG TABLET (FP) PO SCH (22:36)
[2023-09-11] MEDS: SERTRALINE HCL 50 MG TABLET (FP) PO SCH (10:11)
[2023-09-11] MEDS: ARIPiprazole 10 MG TABLET PO SCH (10:11)
[2023-09-11] MEDS: NICOTINE 14 MG/24 HOURS TOPICAL PATCH TD SCH (10:33)
[2023-09-11] MEDS: IBUPROFEN 600 MG TABLET (FP) PO PRN (17:43)
[2023-09-12] MEDS: diazePAM 5 MG TABLET PO SCH (05:50)
[2023-09-13] MEDS: diazePAM 5 MG TABLET PO SCH (05:56)
[2023-09-13 20:53] VITALS: RESP 18
[2023-09-13] MEDS: diazePAM 5 MG TABLET PO ONE (22:15)
[2023-09-14] MEDS: diazePAM 5 MG TABLET PO ONE (05:47)
[2023-09-14 09:41] VITALS: BP 135/74; PULSE 74; TEMP 98.2
== END 2023-09-14 09:08 | disposition other institution (70) | DRG 773 ==
LOC: YASAS 21:14 → Y3N 22:32
PROVIDERS: ADMIT Allergy & Immunology; ATTEND Surgery
PROC: HZ2ZZZZ Detoxification Services for Substance Abuse Treatment (ICD-10-PCS; principal; 2023-09-09)
DX: F10.230 Alcohol dependence with withdrawal, uncomplicated (principal); F13.230 Sedative, hypnotic or anxiolytic dependence with withdrawal, uncomplicated; F11.20 Opioid dependence, uncomplicated; F14.20 Cocaine dependence, uncomplicated; F17.210 Nicotine dependence, cigarettes, uncomplicated; F25.9 Schizoaffective disorder, unspecified; I10 Essential (primary) hypertension; K21.9 Gastro-esophageal reflux disease without esophagitis; M54.50 Low back pain, unspecified; G89.29 Other chronic pain; Z86.59 Personal history of other mental and behavioral disorders
CPT/HCPCS: 80305; 80307; Q0162